=== PATIENT | male | born 1925 | race Caucasian/White ===

== ENCOUNTER 2016-09-15 14:11 | Observation (INO) | payer MEDICARE ==
[2016-09-15] MEDS ORDERED: NS 0.9% 1000 ML* 1,000 ML IV ONE (15:25)
--- NOTE | 2016-09-15 15:30 | RAD ---
HISTORY: Fall, syncope, hematoma COMPARISONS: MRI of the brain dated May 30, 2016 TECHNIQUE: Multiple contiguous axial CT scans were obtained of the head without intravenous contrast. FINDINGS: HEMORRHAGE/INFARCT: There is no hemorrhage or acute infarct. MASSES/SHIFT: There is no mass or shift. EXTRA-AXIAL SPACES: There are no extra-axial fluid collections. SULCI AND VENTRICLES: There is diffuse and proportional enlargement of the sulci and ventricles. CEREBRUM: There are no focal parenchymal abnormalities. BRAINSTEM: There are no focal parenchymal abnormalities. CEREBELLUM: There are no focal parenchymal abnormalities. VESSELS: The vessels are grossly normal. PARANASAL SINUSES: The paranasal sinuses are clear. ORBITS: The orbits are unremarkable. BONES AND SOFT TISSUE: No bone or soft tissue abnormalities are noted. OTHER: None IMPRESSION: NO ACUTE INTRACRANIAL PATHOLOGY. DIFFUSE INVOLUTIONAL CHANGE.
--- NOTE | 2016-09-15 15:34 | RAD ---
INDICATION: Fall resulting in hematoma to right forehead COMPARISON: Similar CT examination dated June 05, 2016 TECHNIQUE: Axial source images were acquired with coronal and sagittal reformatting. FINDINGS: In the sagittal plane there is nonspecific straightening and reversal of the normal cervical lordosis. There is grade 1 anterolisthesis of C2 over C3 but this is stable compared to the previous CT examination. Advanced degenerative changes include loss of intervertebral disc height, marginal osteophyte formation and vacuum disc phenomenon most severely involving C3-C7. There is sclerosis and subchondral lucencies at the articulating endplates and uncovertebral hypertrophy depicted best on the coronal plane images. There is lucency involving the dens which is stable compared to the previous CT examination. There is calcification of the ligaments securing the dens, also stable. There is no hyperdense material in the thecal canal to indicate acute hemorrhage. There is stable calcification involving the posterior spinous ligament overlying C4-C6. There is no acute abnormality of the soft tissues including the musculature. There is coarse atherosclerotic calcification of the right greater than left carotid arteries. The visualized lung bases are clear. IMPRESSION: ADVANCED DEGENERATIVE CHANGES OF THE CERVICAL SPINE WITHOUT EVIDENCE OF AN ACUTE FRACTURE OR DISLOCATION.
[2016-09-15 16:12] LABS: Hematocrit 38 % (42-52); Hemoglobin 12.8 g/dl (14.0-18.0); Mean Corpuscular HGB Conc 34 g/dl (31-36); Mean Corpuscular Hemoglobin 33 pg (27-31); Mean Corpuscular Volume 98 fL (80-94); Mean Platelet Volume 7 um3 (7.4-10.4); Red Blood Count 3.86 10^6/ul (4.0-5.4); Red Cell Distribution Width 14 % (10.5-15)
--- NOTE | 2016-09-15 16:17 | RAD ---
Indication: Syncope. Single frontal view of the chest performed at 1550 hours was reviewed. No prior study is available for comparison. No mediastinal shift is noted. Cardiomegaly is noted. Lung lucas are clear. IMPRESSION: NO ACTIVE CARDIOPULMONARY DISEASE IS NOTED. CARDIOMEGALY IS PRESENT.
[2016-09-15 16:29] LABS: Troponin I 0.01 ng/mL (<0.04)
[2016-09-15 16:37] LABS: Albumin 3.4 g/dL (3.2-5.2); BUN/Creatinine Ratio 22.4 (8-20); Calcium 8.6 mg/dL (8.6-10.3); EGFR African American 124.5 (>60); EGFR Non-African American 96.8 (>60); Globulin 2.6 g/dL (2-4); Magnesium 2.6 mg/dL (1.9-2.7); Total Bilirubin 0.3 mg/dL (0.2-1.0)
[2016-09-15 16:58] LABS: TSH (Thyroid Stimulating Horm) 1.04 mcIU/mL (0.34-5.60)
[2016-09-15] MEDS ORDERED: Ondansetron INJ* 2 MG/ML VIAL IV PRN (18:01)
[2016-09-15 18:27] LABS: Urine Bilirubin Negative (Negative); Urine Glucose Negative (Negative); Urine Nitrite Negative (Negative)
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
[2016-09-15] MEDS ORDERED: Iohexol 350* (CONTRAST) 500 ML MDV IV ONE (18:51)
[2016-09-15 19:23] LABS: Ammonia 35 mol/L (16-53)
[2016-09-15 19:27] LABS: B Type Natriuretic Peptide 120 pg/mL
--- NOTE | 2016-09-15 19:57 | RAD ---
INDICATION: Shortness of breath. Assess for pulmonary embolism. COMPARISON: September 15, 2016 chest radiograph TECHNIQUE: Multidetector CT images were obtained from the lung apices to the upper abdomen with 65 mL Omnipaque 350 IV contrast. Pulmonary angiogram protocol. Multiplanar reformation including with maximum intensity projection. REPORT: Negative for central endobronchial lesions. Trace bilateral dependent pleural effusions. Proportional RIGHT basilar atelectasis. Posterior shift of the LEFT major fissure and near complete atelectasis of the basilar segments of the LEFT lower lobe. Diffuse prominence of the interstitial markings with thickened peripheral intralobular septa. Negative for pneumothorax. Negative for thoracic lymphadenopathy. Cardiomegaly. Negative for pericardial effusion. Coronary artery calcifications. Negative for aneurysm of the thoracic aorta. While early phase of enhancement limits assessment there is no gross evidence for dissection of the thoracic aorta. No filling defects are identified from the main to the subsegmental pulmonary arteries to indicate presence of a pulmonary embolism. No suspicious abnormality at the limited visualized upper abdomen. Healed fractures of the RIGHT sixth, seventh, and eighth ribs noted posterior laterally. No acute thoracic fracture evident. Thoracic degenerative spondylosis. 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 IMPRESSION: 1. No evidence for pulmonary embolism. 2. The constellation of findings is most consistent with mild interstitial pulmonary edema. 3. Basilar atelectasis greater on the LEFT where there is posterior displacement of the major fissure and near complete atelectasis of the basal segments of the LEFT lower lobe.
[2016-09-15] MEDS: Acetaminophen TAB* 325 MG PO PRN (20:30)
[2016-09-15] MEDS ORDERED: Carbidopa/Levodop 25/100 MG TAB(*) PO SCH (21:00)
[2016-09-15] MEDS: Heparin VIAL(*) 5000 UNITS/ML VIAL (FIVE THOUSAND) SUBCUT SCH (21:17)
[2016-09-15] MEDS: ENTACAPONE 200 MG PO SCH (21:26)
--- NOTE | 2016-09-15 22:35 | HP ---
HISTORY AND PHYSICAL: * ADDENDUM: Mr. Corona is an 89-year-old male with a history of Parkinson who is undergoing physical therapy at [facility]. The patient had a syncopal episode yesterday when he slid off a chair. Today, he had a syncope from a standing up and walking position. He is mildly hyponatremic. We are still awaiting his EKG. His orthostatic blood pressure is still pending. For the time being, the patient is going to be placed on observation with further diagnostics as detailed in Malcom Silverman's H and P dictated on 09/15/16. [id number]/[facility] #: [id number] MTDD
--- NOTE | 2016-09-15 22:35 | HP ---
ATTENDING PROVIDER ADDENDUM NOW INCLUDED ON THIS REPORT HISTORY AND PHYSICAL: DATE OF ADMISSION: 09/15/16 PRIMARY CARE PROVIDER: Dr. Zendejas. ATTENDING PHYSICIAN: Viry Gracia MD * (report dictated by Malcom Silverman NP ) CHIEF COMPLAINT: Syncope. HISTORY OF PRESENT ILLNESS: Mr. Corona is an 89-year-old male patient who has a history of Parkinson, hyperlipidemia, prostate cancer, occipital neuralgia, and a history of lower back pain. He comes into the ER today stating that yesterday, he was sitting in his chair and he had an episode where he slid out of his chair and there was a question of syncope and a question of loss of pulse for unknown duration. The patient got back into his chair by himself. He was having no complaints of chest pain or shortness of breath. He was not sent to the hospital at that point, but today, he was up ambulating with his physical therapist. He had an episode again where he fainted and passed out, it is unknown duration. There was no prior chest pain or shortness of breath prior to or after this event. He does state that he woke up this morning feeling a little bit more short of breath than his baseline. Denies any recent change in medications with the exception he is now on Lyrica over the last 3 weeks for occipital neuralgia and he does state that he has not had any fevers, has not had any nausea or vomiting. His appetite has been down, but there has been no dysuria, frequency, and the concern was that he had passed out and this was twice in 2 days, so at this point, Cathy had referred him to the emergency room for evaluation. PAST MEDICAL HISTORY: 1. Parkinson. 2. Hyperlipidemia. 3. Prostate cancer. 4. Occipital neuralgia. 5. Low back pain. PAST SURGICAL HISTORY: He has had a prostatectomy. HOME MEDICATIONS: Include: 1. Senna 2 tabs at bedtime. 2. Requip 6 mg at 0600 and 1400. 3. Rivastigmine 1.5 mg daily. 4. Lyrica 50 mg p.o. b.i.d. 5. Prilosec 20 mg daily. 6. Milk of mag 30 cc p.o. daily. 7. Ibuprofen 600 mg p.o. b.i.d. with meals. 8. Comtan 200 mg p.o. 5 times a day. 9. Colace 100 mg daily. 10. Cymbalta 60 mg daily. 11. Clobetasol 0.5% topically daily as needed. 12. Refresh Tears 0.5% both eyes b.i.d. 13. Sinemet two and a half tabs p.o. at 0600, 0900, 1130, and 1600. 14. Sinemet 2 tabs at bedtime. 15. Debrox 5 drops both ears at bedtime. 16. Suppository 10 mg UT at bedtime as needed. 17. Aspirin 81 mg daily. 18. Tylenol 650 every 6 hours as needed. ALLERGIES TO MEDICATIONS: Include no known drug allergies. FAMILY HISTORY: His father had an CT. SOCIAL HISTORY: He does not smoke. He does not drink alcohol anymore. Lives at [facility]. Surrogate decision maker is his daughter, Susanne. REVIEW OF SYSTEMS: There is no documented fever. He denied having any significant weight change. There was no double vision. There is no ear discharge. No rhinorrhea, no sore throat, no thyroid enlargement. There was some dyspnea on exertion. There was no chest pain, orthopnea, or nocturnal dyspnea. There was no abdominal pain, no nausea, and no vomiting. No dysuria. No frequency. There was a loss of consciousness. No pruritus and no skin ulcerations. Review of 14 systems completed, all others negative. PHYSICAL EXAMINATION GENERAL: At this time, Mr. Corona is an 89-year-old male patient, who appears well- nourished and well-developed. He does not appear to be in any acute distress. VITAL SIGNS: Blood pressure 137/73 with a pulse 69, respirations 18, O2 sat 98% , temperature 98.1. HEENT: Head is atraumatic and normocephalic. Eyes: EOMs intact. Sclerae anicteric and not pale. Throat: Oral mucosa appears to be moist. No oropharyngeal erythema. NECK: Supple. LUNGS: Clear to auscultation bilaterally. No wheezes, rales, or rhonchi. HEART: Sounds S1, S2. Regular rate and rhythm. No murmurs, rubs, or gallops. ABDOMEN: Soft, flat, nontender. Bowel sounds present. EXTREMITIES: Pulses 2+ throughout. He is able to move all 4 extremities with 5 /5 strength. NEUROLOGIC: He is awake, he is alert. He does have some tremors to the lower extremities. He is oriented x3. He had no gross focal deficits. SKIN: Grossly intact. LABORATORY DATA: Today revealed a WBC of 9.0, RBC of 3.86, hemoglobin 12.9, hematocrit 38, platelet count of 290. The INR was 0.86. The sodium was 129, potassium is 5.0, chloride of 106, bicarb 25, BUN 17, creatinine of 0.76, glucose 133, lactic 1.1, calcium 8.6, total bili 0.3, mag 2.6, AST 17, ALT 5, alk phos 67, troponin 0.01, TSH 1.04. Urine is pending. He did have a chest x-ray obtained which on my review did not appreciate any acute infiltrates. Radiology read it as no active cardiopulmonary disease. He had a cervical spine CT, which showed advanced degenerative changes of the cervical spine without evidence of acute fracture or dislocation. He had a brain CT, which showed no acute intracranial pathology. He had an EKG, which showed normal sinus rhythm, rate of 66. He had a PAC with no ST elevations or T-wave inversions with the exception of II, III, and aVF, he has inversions, but there is no previous for comparison. Old medical records were reviewed. ASSESSMENT AND PLAN: Mr. Corona is an 89-year-old male patient coming into the ER today with complaints of syncopal episode. He will be admitted under observation status for: 1. Syncope. At this point, etiology is unclear, but he is complaining now of shortness of breath that started today. So, I do think it would be beneficial to go ahead and do a CT of the chest to rule out a PE that may be the culprit. Although, less likely he is not hypoxic and usually syncope-related pulmonary emboli are large pulmonary emboli and he is not requiring O2, but I think it is warranted a check as he does not ambulate much, he is mostly wheelchair bound because of the Parkinson. We will place him on telemetry. We will check orthostatics. I questioned if the Lyrica may have contributed because it can cause hypotension, is new medication in the last 2 weeks, so I am going to hold this for now. We may to consider a reduced dose or stopping it or an alternative agent for his occipital neuralgia. For the time being, again we will monitor him on telemetry and we will follow. 2. Parkinson. Continue meds as prescribed. 3. Hyperlipidemia. Follow with his primary. 4. History of prostate cancer. Follow with his primary. 5. Occipital neuralgia. Continue with pain management. 6. Low back pain. Continue with pain management. 7. DVT prophylaxis. Continue with his heparin subcu. 8. Code status. He is a DNR. 9. Fluids, electrolytes, and nutrition. He can have a regular diet. TIME SPENT: Time spent on the admission was 60 minutes, greater than half the time was spent [id number] with the patient obtaining my history and physical; the other half time was spent going over the plan of care with the patient and implementing plan of care. I did discuss the plan of care with my attending, Dr. Gracia, she is in agreement. MALCOM SILVERMAN NP ADDENDUM: Mr. Corona is an 89-year-old male with a history of Parkinson who is undergoing physical therapy at [facility]. The patient had a syncopal episode yesterday when he slid off a chair. Today, he had a syncope from a standing up and walking position. He is mildly hyponatremic. We are still awaiting his EKG. His orthostatic blood pressure is still pending. For the time being, the patient is going to be placed on observation with further diagnostics as detailed in Malcom Silverman's H and P dictated on 09/15/16. VIRY GRACIA MD CC: Dr. Zendejas * [id number]/[facility] #: [id number] #: [id number] [place]
[2016-09-15] MEDS: NS 0.9% 1000 ML* 1,000 ML IV SCH (22:59)
[2016-09-15 23:06] LABS: Urine Bilirubin Negative (Negative); Urine Glucose Negative (Negative); Urine Nitrite Negative (Negative)
[2016-09-16 05:07] LABS: Hematocrit 38 % (42-52); Hemoglobin 12.7 g/dl (14.0-18.0); Mean Corpuscular HGB Conc 34 g/dl (31-36); Mean Corpuscular Hemoglobin 33 pg (27-31); Mean Corpuscular Volume 98 fL (80-94); Mean Platelet Volume 7 um3 (7.4-10.4); Red Blood Count 3.86 10^6/ul (4.0-5.4); Red Cell Distribution Width 14 % (10.5-15)
[2016-09-16 05:20] LABS: BUN/Creatinine Ratio 17.6 (8-20); Calcium 8.5 mg/dL (8.6-10.3); EGFR African American 141.5 (>60); EGFR Non-African American 110.1 (>60); Potassium 3.6 mmol/L (3.5-5.0)
[2016-09-16] MEDS: Heparin VIAL(*) 5000 UNITS/ML VIAL (FIVE THOUSAND) SUBCUT SCH (05:26)
[2016-09-16] MEDS: ROPINIROLE HYDROCHLORIDE PO SCH ×2 (05:36→15:32)
[2016-09-16] MEDS: ENTACAPONE 200 MG PO SCH ×3 (05:37→15:32)
[2016-09-16] MEDS: Carbidopa/Levodop 25/100 MG TAB(*) PO SCH ×3 (05:46→11:56)
[2016-09-16] MEDS: Acetaminophen TAB* 325 MG PO PRN (05:49)
[2016-09-16] MEDS ORDERED: Docusate CAP* 100 MG PO SCH (09:00)
[2016-09-16] MEDS ORDERED: Omeprazole CAP* 20 MG PO SCH (09:00)
[2016-09-16] MEDS ORDERED: Aspirin EC Low Dose* 81 MG TAB.EC PO SCH (09:00)
[2016-09-16] MEDS ORDERED: DULoxetine DR CAP* 30 MG CAP.DR PO SCH (09:00)
[2016-09-16] MEDS ORDERED: CMCS:Rivastigmine CAP(NF) 1.5 MG CAP PO SCH (09:00)
[2016-09-16] MEDS: NS 0.9% 1000 ML* 1,000 ML IV SCH (11:55)
[2016-09-16 13:27] LABS: Troponin I 0.02 ng/mL (<0.04)
[2016-09-16 15:56] VITALS: BP 147/64
--- NOTE | 2016-09-17 00:57 | DS ---
DISCHARGE SUMMARY: DATE OF ADMISSION: 09/15/16 DATE OF DISCHARGE: 09/16/16 PRIMARY CARE PROVIDER: Dr. Zendejas. PRIMARY DIAGNOSIS: Syncope. SECONDARY DIAGNOSES: 1. Parkinsonism. 2. Hyperlipidemia. 3. Prostate cancer. 4. Occipital neuralgia. 5. Low back pain. MEDICATIONS ON DISCHARGE: Unchanged from admission except for discontinuation of Lyrica includes: 1. Senna 2 tabs at bedtime. 2. Requip 6 mg at 6 a.m. and 2 p.m. 3. Rivastigmine 1.5 mg daily. 4. Prilosec 20 mg daily. 5. Milk of magnesia 30 cc daily. 6. Ibuprofen 600 mg twice daily with meals as needed for pain. 7. Comtan 200 mg 5 times daily. 8. Colace 100 mg daily. 9. Cymbalta 60 mg daily. 10. Clobetasol 0.5% topically as needed. 11. Refresh Tears 0.5% both eyes twice daily. 12. Sinemet two and a half tabs at 6:00, 9:00, 11:30, and 04:00. 13. Sinemet 2 tabs at bedtime. 14. Debrox 5 drops both ear at bedtime. 15. Aspirin 81 mg daily. 16. Tylenol 650 every 6 hours as needed pain or fever. HISTORY OF PRESENT ILLNESS AND HOSPITAL COURSE: This is an 89-year-old man with a past medical history as outlined in the history of present illness on the day of admission including Parkinson disorder, recently started on Lyrica 3 weeks prior for occipital neuralgia, was in his usual state of health, had an episode where he reports sitting on chair at an angle and falling to the floor, was thought to have had an episode of syncope per his nursing although the veracity of this account could not be confirmed by the patient nor his healthcare proxy. The following day, after an episode of working with physical therapy, he was ambulating to another room with physical therapist when he started to feel dizzy and had another episode of syncope. Per reports, he has had episodes of orthostatic hypotension. In the emergency room, was tested and again was found to have orthostatic hypotension. He was given IV fluids during the course of his hospital stay, had serial troponins that remained negative and EKG without change. His Lyrica was discontinued on the day of discharge. The patient was without complaint, was ambulating with his walker without distress. There are no complications of this patient's hospital stay. At followup, please; 1. Monitor orthostatic hypotension off of Lyrica. 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 2. No other specific labs or vitals that need followup. Reasons to return to the hospital including, but not limited to worsening of symptoms, chest pain, shortness of breath, nausea, vomiting, lightheadedness, loss of consciousness, near loss of consciousness, diarrhea, fevers of any source, inability to obtain or tolerate medications discussed with the patient and his daughter. TIME SPENT: Greater than 45 minutes were spent on the discharge of this patient of which greater than half was spent [id number] with the patient. CC: Dr. Zendejas* [id number]/[facility] #: [id number] CELE[place]
== END 2016-09-16 19:00 ==
LOC: ED 14:11 → MEDTELE 17:59
PROVIDERS: ADMIT Internal Medicine; ATTEND Internal Medicine
DX: R55 Syncope and collapse (principal); G20 Parkinson's disease; E78.5 Hyperlipidemia, unspecified; M54.81 Occipital neuralgia; M54.5 Low back pain; J98.11 Atelectasis; M50.31 Other cervical disc degeneration, high cervical region; R94.31 Abnormal electrocardiogram [ECG] [EKG]; I44.4 Left anterior fascicular block; I49.1 Atrial premature depolarization; Z85.46 Personal history of malignant neoplasm of prostate; Z79.899 Other long term (current) drug therapy
CPT/HCPCS: 36415; 70450; 71010; 71275; 72125; 80048; 80053; 81003; 82140; 82550; 83605; 83735; 83880; 84443; 84484; 85025; 85610; 87086; 93005; 96360; 96361; 99283; A9270-GY; G0378; J1644; Q9967

== ENCOUNTER 2016-11-15 16:51 | Observation (INO) | payer MEDICARE ==
--- NOTE | 2016-11-15 17:50 | RAD ---
INDICATION: Neurologic change. Code mae. COMPARISON: CT brain September 15, 2016 TECHNIQUE: Noncontrast axial source images were acquired from the skull base to the vertex. FINDINGS: Ventricles/sulci: There is prominent cortical atrophy with compensatory dilatation of the CSF spaces. Brain parenchyma: There is no focal parenchymal finding, evidence of intracranial mass, or intracranial mass effect. Intracranial hemorrhage:None. Extra-axial spaces: There are no abnormal extra axial fluid collections or evidence of extra-axial mass. Calvarium: There is no calvarial fracture or other calvarial abnormality. Scalp: There is no evidence of scalp or extracalvarial soft tissue abnormality. Paranasal sinuses/mastoid: The paranasal sinuses and mastoid air cells are clear. Other: None. IMPRESSION: PROMINENT CORTICAL ATROPHY. NO ACUTE FINDINGS. Findings called to ED at 1744 hours
[2016-11-15 18:02] LABS: Hematocrit 40 % (42-52); Hemoglobin 13.2 g/dl (14.0-18.0); Mean Corpuscular HGB Conc 33 g/dl (31-36); Mean Corpuscular Hemoglobin 32 pg (27-31); Mean Corpuscular Volume 97 fL (80-94); Mean Platelet Volume 7 um3 (7.4-10.4); Red Blood Count 4.13 10^6/ul (4.0-5.4); Red Cell Distribution Width 13 % (10.5-15); White Blood Count 7.6 10^3/ul (3.5-10.8)
--- NOTE | 2016-11-15 18:04 | RAD ---
INDICATION: Altered mental status COMPARISON: Chest x-ray September 15, 2016 TECHNIQUE: An AP portable view obtained at 1741 hours is submitted. FINDINGS: Bones/Soft Tissues: There are no acute bony findings. Cardiomediastinal: The cardiomediastinal silhouette is unchanged. There is a left ventricular configuration. Lungs: There are no focal consolidative changes. There is increase in interstitial markings which appears chronic. A mild component of interstitial congestion cannot be excluded. Pleura: There are no pleural effusions. Other: None IMPRESSION: Diffuse increase in interstitial markings. No acute findings.
[2016-11-15 18:21] LABS: Albumin 3.4 g/dL (3.2-5.2); BUN/Creatinine Ratio 24.2 (8-20); Calcium 8.7 mg/dL (8.6-10.3); EGFR African American 146.5 (>60); EGFR Non-African American 113.9 (>60); Globulin 2.9 g/dL (2-4); HDL Cholesterol 58.1 mg/dL; Total Bilirubin 0.4 mg/dL (0.2-1.0); Total Protein 6.3 g/dL (6.4-8.9)
[2016-11-15 18:22] LABS: Troponin I 0.01 ng/mL (<0.04)
[2016-11-15] MEDS ORDERED: Ibuprofen TAB* 200 MG PO ONE (20:41)
[2016-11-15] MEDS ORDERED: Docusate CAP* 100 MG PO ONE (20:41)
[2016-11-15] MEDS ORDERED: AMPICILLIN 250 MG PO ONE (20:42)
[2016-11-15] MEDS ORDERED: Senna TAB PO ONE (20:43)
--- NOTE | 2016-11-15 20:48 | ED ---
Aretha Swartz Erika, scribed for Leo Hinojosa MD on 11/15/16 at 1753 . Altered Mental Status - HPI Summary HPI Summary: Patient is an 89-year-old male presenting to the ED with a CC of AMS. Per daughter, patient was given his usual medications around 14:00 or 14:30 today, and was at baseline. When he was rounded on by an aide at 15:00, pt was found unresponsive. Daughter reports that pt has had weakness on the right side worsening for the past 3-4 weeks. She also reports difficulty with depth perception and urinary retention. Hx Parkinson's disease. Pt has an MRI ordered which should be completed this week or next week. Pt did recently start taking an Abx for a UTI. LEVEL 5 CAVEAT - AMS. - History Of Current Complaint Chief Complaint: EDWeakness Stated Complaint: WEAKNESS, Time Seen by Provider: 11/15/16 17:17 Hx Obtained From: Family/Automatic Fancy Machine Operator Hx From Patient Unobtainable Due To: Altered Mental Status Onset/Duration: Still Present Timing: Constant Severity Currently: Moderate Character: Responsiveness Aggravating Factor(s): Unknown Alleviating Factor(s): Nothing - Allergies/Home Medications Allergies/Adverse Reactions: Allergies Allergy/AdvReac Type Severity Reaction Status Date / Time Poison Deborah Extract/Poison Allergy Rash And Verified 10/10/16 10:25 [place] Extra Itching Home Medications: Home Medications Carbidopa/Levodop 25/100 MG(*) [Sinemet 25/100 TAB(*)] 2 tab PO BEDTIME [History Confirmed 11/15/16] Carbidopa/Levodop 25/100 MG(*) [Sinemet 25/100 TAB(*)] 2.5 tab PO .FIVE TIMES A DAY 11/15/16 [History Confirmed 11/15/16] Fludrocortisone Acetate TAB* [Florinef TAB*] 0.1 mg PO DAILY 11/15/16 [History Confirmed 11/15/16] Ibuprofen TAB* [Advil TAB*] 400 mg PO Q4HR PRN 11/15/16 [History Confirmed 11/15] Nitrofurantoin Macrocrystals* [Macrodantin*] 50 mg PO DAILY 11/15/16 [History Confirmed 11/15/16] PMH/Surg Hx/FS Hx/Imm Hx Endocrine/Hematology History: Denies: Hx Diabetes, Hx Thyroid Disease Cardiovascular History: Reports: Hx Hypercholesterolemia Denies: Hx Hypertension, Hx Pacemaker/ICD Respiratory History: Denies: Hx Asthma, Hx Chronic Obstructive Pulmonary Disease (COPD) GI History: Denies: Hx Ulcer History: Reports: Other Problems/Disorders - prostate cancer Denies: Hx Dialysis, Hx Renal Disease Musculoskeletal History: Reports: Hx Arthritis - neck, Hx Back Problems, Other Musculoskeletal History - Parkinson's Sensory History: Reports: Hx Contacts or Glasses, Other Sensory Impairments - light sensativitu r/t eye pain right Denies: Hx Hearing Aid Opthamlomology History: Reports: Hx Contacts or Glasses, Other Sensory Impairments - light sensativitu r/t eye pain right Neurological History: Reports: Other Neuro Impairments/Disorders - Parkinson's Disease Psychiatric History: Reports: Hx Depression Denies: Hx Panic Disorder - Cancer History Cancer Type, Location and Year: , - Surgical History Surgery Procedure, Year, and Place: Hip replacement, 2004, [place] rt side. Prostatectomy, , [place] - Immunization History Date of Tetanus Vaccine: Unk Date of Influenza Vaccine: Fall 2014 Infectious Disease History: No Infectious Disease History: Reports: Hx Clostridium Difficile Denies: Hx Hepatitis, Hx Human Immunodeficiency Virus (HIV), History Other Infectious Disease, Traveled Outside the [place] in Last 30 Days - Family History Known Family History: Negative: Diabetes - Social History [facility]: [facility] Alcohol Use: Weekly Alcohol Amount: 2 oz Hx Substance Use: No Substance Use Type: Reports: None Hx Tobacco Use: No Smoking Status (MU): Never Smoked Tobacco Review of Systems - ROS Summary Review of Systems Summary: LEVEL 5 CAVEAT - AMS Eyes: Other - Depth perception difficulty Genitourinary: Other - urinary retention Neurological: Other - AMS Positive: Weakness - R sided All Other Systems Reviewed And Are Negative: No Physical Exam Triage Information Reviewed: Yes Vital Signs On Initial Exam: Initial Vitals Temp Pulse Resp BP Pulse Ox 98.6 F 66 16 212/83 97 11/15/16 16:56 11/15/16 16:56 11/15/16 16:56 11/15/16 16:56 11/15/16 16:56 Vital Signs Reviewed: Yes Completion Of Physical Exam Limited Due To: Altered Mental Status, Level 5 Appearance: Positive: Well-Appearing, No Pain Distress Skin: Positive: Warm, Skin Color Reflects Adequate Perfusion, Dry Head/Face: Positive: Normal Head/Face Inspection Eyes: Positive: PAM - 3 mm. Moves his eyes. Unable to open eyes himself ENT: Positive: Normal ENT inspection Neck: Positive: Supple, Nontender Respiratory/Lung Sounds: Positive: Clear to Auscultation, Breath Sounds Present Cardiovascular: Positive: RRR Abdomen Description: Positive: Nontender, Soft Bowel Sounds: Positive: Present Musculoskeletal: Positive: Normal, Strength/ROM Intact Neurological: Positive: Other - Twitches in both legs. Facial symmetry Diagnostics - Vital Signs Vital Signs Temp Pulse Resp BP Pulse Ox 11/15/16 16:56 98.6 F 66 16 212/83 97 - Laboratory Lab Results: Lab Results 11/15/16 11/15/16 11/15/16 Range/Units 17:45 17:45 17:45 WBC 7.6 (3.5-10.8) 10^3/ul RBC 4.13 (4.0-5.4) 10^6/ul Hgb 13.2 L (14.0-18.0) g/dl Hct 40 L (42-52) % MCV 97 H (80-94) fL MCH 32 H (27-31) pg MCHC 33 (31-36) g/dl RDW 13 (10.5-15) % Plt Count 381 (150-450) 10^3/ul MPV 7 L (7.4-10.4) um3 Neut % (Auto) 76.0 (38-83) % Lymph % (Auto) 11.8 L (25-47) % Leslie % (Auto) 10.1 H (1-9) % Eos % (Auto) 1.4 (0-6) % Baso % (Auto) 0.7 (0-2) % Absolute Neuts (auto) 5.8 (1.5-7.7) 10^3/ul Absolute Lymphs (auto) 0.9 L (1.0-4.8) 10^3/ul Absolute Monos (auto) 0.8 (0-0.8) 10^3/ul Absolute Eos (auto) 0.1 (0-0.6) 10^3/ul Absolute Basos (auto) 0.1 (0-0.2) 10^3/ul Absolute Nucleated RBC 0.01 10^3/ul Nucleated RBC % 0.1 INR (Anticoag Therapy) 0.92 (0.89-1.11) APTT 29.5 (26.0-36.3) seconds Sodium 131 L (133-145) mmol/L Potassium 4.0 (3.5-5.0) mmol/L Chloride 103 (101-111) mmol/L Carbon Dioxide 26 (22-32) mmol/L Anion Gap 2 (2-11) mmol/L BUN 16 (6-24) mg/dL Creatinine 0.66 L (0.67-1.17) mg/dL Est GFR ( Amer) 146.5 (>60) Est GFR (Non-Af Amer) 113.9 (>60) BUN/Creatinine Ratio 24.2 H (8-20) Glucose 104 H (70-100) mg/dL Lactic Acid (0.5-2.0) mmol/L Calcium 8.7 (8.6-10.3) mg/dL Total Bilirubin 0.40 (0.2-1.0) mg/dL AST 16 (13-39) U/L ALT 9 (7-52) U/L Alkaline Phosphatase 83 (34-104) U/L Troponin I 0.01 (<0.04) ng/mL Total Protein 6.3 L (6.4-8.9) g/dL Albumin 3.4 (3.2-5.2) g/dL Globulin 2.9 (2-4) g/dL Albumin/Globulin Ratio 1.2 (1-3) Triglycerides 106 mg/dL Cholesterol 184 mg/dL LDL Cholesterol 105 mg/dL HDL Cholesterol 58.1 mg/dL Blood Type Antibody Screen 11/15/16 11/15/16 Range/Units 17:45 17:45 WBC (3.5-10.8) 10^3/ul RBC (4.0-5.4) 10^6/ul Hgb (14.0-18.0) g/dl Hct (42-52) % MCV (80-94) fL MCH (27-31) pg MCHC (31-36) g/dl RDW (10.5-15) % Plt Count (150-450) 10^3/ul MPV (7.4-10.4) um3 Neut % (Auto) (38-83) % Lymph % (Auto) (25-47) % Leslie % (Auto) (1-9) % Eos % (Auto) (0-6) % Baso % (Auto) (0-2) % Absolute Neuts (auto) (1.5-7.7) 10^3/ul Absolute Lymphs (auto) (1.0-4.8) 10^3/ul Absolute Monos (auto) (0-0.8) 10^3/ul Absolute Eos (auto) (0-0.6) 10^3/ul Absolute Basos (auto) (0-0.2) 10^3/ul Absolute Nucleated RBC 10^3/ul Nucleated RBC % INR (Anticoag Therapy) (0.89-1.11) APTT (26.0-36.3) seconds Sodium (133-145) mmol/L Potassium (3.5-5.0) mmol/L Chloride (101-111) mmol/L Carbon Dioxide (22-32) mmol/L Anion Gap (2-11) mmol/L BUN (6-24) mg/dL Creatinine (0.67-1.17) mg/dL Est GFR ( Amer) (>60) Est GFR (Non-Af Amer) (>60) BUN/Creatinine Ratio (8-20) Glucose (70-100) mg/dL Lactic Acid 1.0 (0.5-2.0) mmol/L Calcium (8.6-10.3) mg/dL Total Bilirubin (0.2-1.0) mg/dL AST (13-39) U/L ALT (7-52) U/L Alkaline Phosphatase (34-104) U/L Troponin I (<0.04) ng/mL Total Protein (6.4-8.9) g/dL Albumin (3.2-5.2) g/dL Globulin (2-4) g/dL Albumin/Globulin Ratio (1-3) Triglycerides mg/dL Cholesterol mg/dL LDL Cholesterol mg/dL HDL Cholesterol mg/dL Blood Type A Positive Antibody Screen Negative Result Diagrams: 11/15/16 17:45 11/15/16 17:45 Lab Statement: Any lab studies that have been ordered have been reviewed, and results considered in the medical decision making process. - Radiology CXR Radiology Interpretation Completed By: Radiologist - IMPRESSION: Diffuse increase in interstitial markings. No acute findings. - CT Brain CT CT Interpretation Completed By: Radiologist - IMPRESSION: PROMINENT CORTICAL ATROPHY. NO ACUTE FINDINGS. Findings called to ED at 1744 hours - EKG 16:49 Cardiac Rate: NL - at 63 bpm EKG Rhythm: Sinus Rhythm Ectopy: PACs EKG Interpretation: Flipped T waves in V5, V6, III, aVF. LVH National Institutes Of Health - NIH Scale Level of Consciousness: Only Reflex Motor/Unresponsive Ask Patient the Month and His/Her Age: Neither Correct/Aphasic Ask Pt to Open/Close Eyes and Retail Wireless Associate/Release Non-Paretic Hand: Neither Correctly Best Gaze (Only Horizontal Eye Movement): Normal Best Language (Describe Picture, Name Items): Mute/Global Aphasia Dysarthria (Read Several Words): Unintelligible or Mute Re-Evaluation - Re-Evaluation First Eval Re-Evaluation Time: 19:36 Change: Improved Comment: Patient is now awake and alert. Dr. Gaspar in to see patient Altered Mental Statu Course/Dx - Course Assessment/Plan: DR GASPAR, NEUROLOGY, SAW PATIENT IN ED. PATIENT IMPROVED IN ED. ADMIT HOSPITALIST STABLE. - Diagnoses Discharge Diagnoses: Altered mental state During the Visit The Following Alert/Code Occurred: Code Valdez - Provider Notifications Discussed Care Of Patient With: Dr. Gaspar (neurology) at 17:29 - discussed pt' s history and condition. Dr. Parks (radiology) at 17:44 - notified of negative Brain CT. Dr. Gaspar at 19:30 - Dr. Gaspar is updated on status and is in to see pt. Dr. Gaspar at 20:01 - Dr. Gaspar does not believe that this is a stroke, and does not believe any further neurological work up is necessary. Dr. Castelan (hospitalist) at 20:27 - agrees to admit Discharge - Discharge Plan Condition: Stable Disposition: ADMITTED TO [facility] Referrals: Feliberto Zendejas MD [Primary Care Provider] - The documentation as recorded by the Aretha daniel Erika accurately reflects the service I personally performed and the decisions made by me, Leo Hinojosa MD.
[2016-11-15] MEDS ORDERED: Acetaminophen TAB* 325 MG PO PRN (21:54)
[2016-11-15] MEDS ORDERED: Entacapone (NF) 200 MG TAB PO SCH (22:00)
[2016-11-15] MEDS ORDERED: Ciprofloxacin TAB* 250 MG PO ONE (22:05)
[2016-11-15 22:40] LABS: Urine Bilirubin Negative (Negative); Urine Glucose Negative (Negative); Urine Nitrite Negative (Negative)
[2016-11-15] MEDS ORDERED: Senna TAB PO SCH (23:00)
[2016-11-15] MEDS ORDERED: Docusate CAP* 100 MG PO SCH (23:00)
[2016-11-15] MEDS ORDERED: Ciprofloxacin TAB* 250 MG PO SCH (23:00)
[2016-11-16] MEDS: Heparin VIAL(*) 5000 UNITS/ML VIAL (FIVE THOUSAND) SUBCUT SCH ×3 (00:27→13:02)
--- NOTE | 2016-11-16 00:37 | CONS ---
NEUROLOGY CONSULTATION: DATE OF CONSULT: 11/15/16 REFERRING PHYSICIAN: Dr. Hinojosa. PRIMARY CARE PROVIDER: Dr. Zendejas. LOCATION: He is in the emergency room, possibly to be admitted. CHIEF COMPLAINT: Unresponsiveness. 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 The history is from him, but also from his daughter. About 2-1/2 hours later, they tried to wake him up and they could not arouse him. She said that it was likely he was in a deep sleep. She says that they checked his blood pressure and his heart rate and they were fine. It was then that he was referred to the emergency room. In the emergency room, he was minimally responsive and sent for a CAT scan. When he came back and he was getting a chest x-ray, he started to be more responsive. Within about a half an hour, he was fully responsive. He has had episodes of syncope and in fact was hospitalized on 09/15/16, was felt to be orthostatic syncope. He has hypertension, but apparently orthostatic hypotension. There is no history of seizures or strokes, but he does have a progressive neurodegenerative condition diagnosed as Parkinson's disease. However, began with difficulty walking 5 years ago and he has been in a wheelchair now for at least a month and he was using a motorized wheelchair before that. He has had progressive decreased function of his right arm and leg , particularly in the last 3 weeks. Also his initial symptoms of difficulty ambulating was related to his right leg. He does not have a history of heart disease. He has not been on any new medications recently other than an antibiotic for urinary tract infection, which apparently has been a recurrent problem. PAST MEDICAL HISTORY: Notable for neurodegenerative parkinsonism, hyperlipidemia, prostate cancer, occipital pain treated with nerve blocks, chronic low back pain. He has had a prostatectomy. MEDICATIONS: Consist of: 1. Requip 6 mg at 0600 and 1400. 2. Rivastigmine 1.5 mg p.o. q. day. 3. Lyrica 50 mg p.o. b.i.d. 4. Prilosec 20 mg p.o. q. day. 5. Comtan 200 mg p.o. five times per day. 6. Colace 100 mg q. day. 7. Cymbalta 60 mg p.o. q. day. 8. Sinemet 25/100 two tablets every 3 hours from 0600 to 1400 and then 2 tabs at bedtime. 9. Aspirin 81 mg p.o. q. day. ALLERGIES: According to the computer records, he does not have any drug allergies. SOCIAL HISTORY: He lives at [facility]. He has two daughters who are with him in the room. There is no history of alcohol abuse. He does not smoke. PHYSICAL EXAM: He is an elderly gentleman lying quietly in the emergency room [facility]. His heart rate is generally regular on the monitor at about 70 beats per minute but with frequent PVCs and occasional pauses. Blood pressures are 118/70 and respiratory rate is about 16. Heart is in a regular rhythm without murmurs heard. Carotid pulses are present. There are no cervical bruits. Oral mucosa is moist and tongue is atraumatic. On neurologic exam, pupils react equally from about 3 to 2 mm. Funduscopic exam is poorly seen due to vitreous and lens opacities. Eye movements are full , however. Visual lucas are also full to confrontation. Facial musculature is notable for grade 2 hypomimia and is symmetric. Facial sensation is intact to light touch. Speech is soft and clear without dysarthria. He is a little hard of hearing. Motor exam reveals rigidity of the right arm and right leg and a little bit of the left leg. I do not detect a spastic catch. He has forward mobility of the right arm but can perform a weak and slow finger taps and some weak generation of strength proximally and distally. He has difficulty raising the right leg up but does offer some resistance. He seems to have good strength of the right arm and leg and fairly normal tone. There was no tremor or myoclonus noted. Finger taps are a little slow in the left hand. Reflexes are diffusely hypoactive. Plantar responses are extensor bilaterally. He is mentally very slow to respond. However, he provides reasonably good history but his daughter has to correct him about chronological details. Language is generally fluent. Attention and concentration are fair. DIAGNOSTIC STUDIES/LAB DATA: Reviewed includes a normal CBC other than a hemoglobin of 13. Chemistries are notable for a sodium of 131 and otherwise unremarkable chemistry profile. CT scan of the brain is reviewed and revealed pretty severe atrophy, but is otherwise unremarkable. MRI of the brain from 06/01/16 is reviewed and also revealed severe atrophy. 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 I am not sure what caused this episode of unresponsiveness, but if he had an arrhythmia in his sleep or was hypoxic, that might explain it. There has been no change in his medications, but he does get Requip at 2 o'clock, which can cause sleep attacks, but he has been on that for many months if not years according to his daughters. 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 He also has severe cervical spine disease, which could potentially contribute to his more recent motor decline, but it looks more like an extrapyramidal pattern particularly with asymmetry. Again, this is unrelated to his emergency room presentation. I discussed my impressions with Dr. Hinojoas. He will discuss with the hospitalist possibly admitting him for a telemetry monitoring to make sure he is not having arrhythmias in his sleep. Regarding his neurodegenerative parkinsonism, he could be seen in followup in the office at some point. I have discussed this with his daughters. [id number]/[facility] #: [id number] [place]LE[place]
--- NOTE | 2016-11-16 01:21 | HP ---
HOSPITAL MEDICINE HISTORY AND PHYSICAL: DATE OF ADMISSION: 11/15/16 PRIMARY CARE PHYSICIAN: Feliberto Zendejas MD ATTENDING PHYSICIAN: Robert Castelan MD *(dictation provided by Merle Webster NP) CHIEF COMPLAINT: Altered mental status. HISTORY OF PRESENT ILLNESS: Mr. Corona is an 89-year-old male with a past medical history history of Parkinson disease and prostate cancer, currently requiring b.i.d. straight catheterization for urinary retention, who presents to the hospital with an episode of altered mental status. Per the report, given from the patient's daughter who is at the bedside, Mr. Corona had been in his normal state of health. Today at about 1230 hours, he was very eager to take a nap. This was unusual for him, but he did not seem to be in any distress. The patient napped and then staff attempted to awaken him to give him medications, he was less responsive but there was not significant concern as he was appropriate. However, shortly thereafter, he was attempted to be awakened again and was unresponsive. It is unclear exactly how long the patient was unresponsive. The daughter at the bedside is not aware of how long that lasted. Regardless, by the time she saw him at 8 o'clock this evening, he was essentially back to his baseline, although the patient's daughter notes that he is a little more quite than usual. The patient has no recollection and when I asked why he is in the hospital, he stated it is because of his bladder. He denies any complaints at this time other than feeling that his bladder is full. In the emergency room, Mr. Corona has been shown to have essentially normal workup. A CT of the brain is negative. His labs are normal. I will note that his UA is pending. Per the review of the record from [facility], the patient had been on ampicillin and then switched over nitrofurantoin for urinary tract infection. When I asked the patient about this, he stated that he had been on antibiotics for feeling of fullness after urination. The daughter at the bedside is unaware of the exact details, though she did know he was on antibiotics. PAST MEDICAL HISTORY: 1. Parkinson disease. 2. Hypotension, on Florinef. 3. GERD. 4. Prostate cancer with current urinary retention, requiring b.i.d. catheterization. 5. Frequent falls. 6. Occipital neuralgia. MEDICATIONS: 1. Dulcolax suppository 10 mg p.o. q.p.m. p.r.n. 2. Refresh Tears 0.5% both eyes b.i.d. 3. Clobetasol 0.05% topically daily p.r.n. 4. Fludrocortisone 0.1 mg p.o. daily. 5. Advil 400 mg p.o. q.4 hours p.r.n. 6. Ibuprofen p.r.n. 7. Magnesium hydroxide p.r.n. 8. Nitrofurantoin 50 mg p.o. daily. 9. Tylenol p.r.n. 10. Aspirin 81 mg p.o. daily. 11. Carbidopa/levodopa 25/100 mg 2 tabs p.o. at bedtime and 2.5 tabs p.o. 5 times daily. 12. Cymbalta 30 mg p.o. daily. 13. Docusate 100 mg p.o. daily. 14. Entacapone 200 mg p.o. 5 times daily. 15. Omeprazole 20 mg p.o. q.p.m. 16. Ropinirole 6 mg p.o. at 6 o'clock and 1400 hours. 17. Senna with docusate 2 tabs p.o. bedtime. ALLERGIES: To POISON GERARDO and POISON [place]. FAMILY HISTORY: The patient reports both mother and father had history of heart failure. SOCIAL HISTORY: The patient is a nonsmoker. He has been a drinker. He is currently allowed to have 1.5 ounces of vodka q.p.m. at [facility]. There is no report of drug history. The patient states that his daughter, Susanne, is his health care proxy. REVIEW OF SYSTEMS: A 14-point review of systems was completed with Mr. Corona and all those not mentioned above were negative. PHYSICAL EXAMINATION GENERAL: Mr. Corona is sitting up in the bed. He is in no acute distress. VITAL SIGNS: Temperature 98.6, pulse rate 66, respiratory rate 16, O2 saturation 97% on room air, and blood pressure 167/86. LUNGS: Clear to auscultation bilaterally with no accessory muscle use and good aeration. HEART: S1, S2. No murmur, rub, or gallop and regular. ABDOMEN: Soft and nontender with bowel sounds positive x4. EXTREMITIES: No cyanosis or edema. SKIN: Intact. NEURO: He is quite, but he is oriented x3. He states that he is in the hospital and that Jimbo Virk is our President. He was not clear why he was in the hospital and stated that it was because of the bladder problem. He moves all extremities equally. There is no facial asymmetry or focal weakness. Extraocular movements are intact. DIAGNOSTIC STUDIES/LAB DATA: WBC 7.6, hemoglobin 13.2, hematocrit 40, and platelet count 380. INR 0.92. Sodium 131, potassium 4.0, chloride 103, serum bicarbonate 26, BUN 16, creatinine 0.66, and glucose 104. Troponin 0.01. CT brain shows following: Prominent cortical atrophy. No acute findings. Chest x-ray shows the following: Diffuse interstitial markings. No acute findings. EKG shows sinus rhythm with a heart rate in the 60s. No evidence of ischemia. The urine is pending. ASSESSMENT: Mr. Corona is an 89-year-old male with a past medical history of Parkinson disease and prostate cancer, requiring twice daily straight catheterization for urinary retention, who presents to the hospital with an self - limited episode of altered mental status. Our plans are for observation in the hospital for the followin. Altered mental status: I appreciate consultation from Dr. Reina who has seen him today. There is no evidence per his estimation that the patient had a transient ischemic attack. He suspects perhaps the patient had hypoxia or arrhythmia during sleep and recommends telemetry monitoring. We will provide telemetry monitoring. The patient will have q.2 hour neuro checks. I am suspicious that perhaps, he has a urinary tract infection given his history of urinary retention and recent antibiotics. Plan is for a urinalysis, but I will order a dose of ciprofloxacin pending the review of those results. That can be reviewed in the morning and continued as needed. I also wonder perhaps his medication dose related, although he has been receiving his medications routinely as documented on the [facility] paperwork. 2. Hypertension: The patient's blood pressure has been running as high as 200 in the emergency room. He is on fludrocortisone at home for what has been reported to be a worsening hypotension. I will continue the fludrocortisone for the a.m. and I am going to put a hold parameter for blood pressure greater than 120. I am not planning to order any antihypertensives for his high blood pressure at least at this point, given his history of hypertension, but that can be readdressed if he persists with high blood pressure. His current blood pressure is systolically in the 160s. 3. Parkinson's: Continue home medications. 4. DVT prophylaxis: Heparin subcu. 5. Disposition: To telemetry floor. 6. Code status: DNR. TIME SPENT: Approximately 60 minutes was spent in the admission of this patient , more than half of the time was spent with the patient at the bedside reviewing the events leading up to this hospitalization, performing the physical examination, and reviewing my plan of care. MERLE WEBSTER NP CC: Dr. Zendejas* [id number]/[facility] #: [id number] MTDD
[2016-11-16] MEDS: Carbidopa/Levodop 25/100 MG TAB(*) PO SCH ×4 (05:03→13:55)
[2016-11-16] MEDS: ROPINIROLE HYDROCHLORIDE PO SCH ×2 (05:04→13:55)
[2016-11-16] MEDS: ENTACAPONE 200 MG PO SCH ×4 (05:05→13:55)
[2016-11-16 07:44] VITALS: BP 117/64
[2016-11-16] MEDS ORDERED: DULoxetine DR CAP* 30 MG CAP.DR PO SCH (09:00)
[2016-11-16] MEDS ORDERED: Fludrocortisone Acetate TAB* 0.1 MG PO SCH ×2 (09:00)
[2016-11-16] MEDS ORDERED: Omeprazole CAP* 20 MG PO SCH (09:00)
[2016-11-16] MEDS ORDERED: Docusate CAP* 100 MG PO SCH (09:00)
[2016-11-16] MEDS ORDERED: Aspirin EC Low Dose* 81 MG TAB.EC PO SCH (09:00)
--- NOTE | 2016-11-16 10:00 | PN ---
Subjective Date of Service: 11/16/16 Interval History: Patient seen and examined at bedside. Denies fever, chills, shortness of breath , chest discomfort, N/V/D. Pt states that he has needed to be straight cathed at home for a few weeks. He has followed with Urology at [place] in the past. Pt is complaining of generalized weakness and right hip pain. Pt has full ROM of the right hip. Pt's daughter's state that his mental status has been changing over the last few weeks, but he appears to be at his baseline this morning. She is anxious to get him returned to [facility] today. Tele: Sinus arrhythmia, few PVC and a 3 run beat of V tach overnight. Family History: Unchanged from Admission Social History: Unchanged from Admission Past Medical History: Unchanged from Admission Objective Active Medications: Acetaminophen (Tylenol Tab*) 650 mg PO Q6H PRN Reason: FEVER/PAIN Aspirin (Aspirin Ec Low Dose*) 81 mg PO DAILY DELFINO Carbidopa/Levodopa (Sinemet 25/100 Tab(*)) 2 tab PO BEDTIME DELFINO Carbidopa/Levodopa (Sinemet 25/100 Tab(*)) 2.5 tab PO 0600,0900,1130,1400 DELFINO Carbidopa/Levodopa (Sinemet 25/100 Tab(*)) 2.5 tab PO 1630 DELFINO Docusate Sodium (Colace Cap*) 100 mg PO DAILY DELFINO Docusate Sodium (Colace Cap*) 100 mg PO BEDTIME DELFINO Duloxetine HCl (Cymbalta Cap*) 30 mg PO DAILY DELFINO Entacapone (Comtan(Nf)) 200 mg PO 0600,0900,1130,1400 DELFINO Entacapone (Comtan(Nf)) 200 mg PO 1630 DELFINO Fludrocortisone Acetate (Florinef Tab*) 0.1 mg PO DAILY DELFINO Heparin Sodium (Porcine) (Heparin Vial(*)) 5,000 units SUBCUT Q8HR DELFINO Pto Nf Med* ( Ropinirole Hydrochloride [ Requip Xl] 6 Mg) 6 mg PO 0600,1400 DELFINO Omeprazole (Prilosec Cap*) 20 mg PO QAM DELFINO Senna (Senokot Tab*) 2 tab PO BEDTIME DELFINO Vital Signs 11/15/16 11/15/16 11/16/16 23:24 23:36 00:58 Temperature 98.7 F 98.7 F 98.3 F Pulse Rate 64 64 61 Respiratory 16 16 18 Rate Blood Pressure 147/87 151/82 163/76 (mmHg) O2 Sat by Pulse 96 97 Oximetry 11/16/16 11/16/16 04:07 07:31 Temperature 98.1 F 98.2 F Pulse Rate 56 67 Respiratory 16 22 Rate Blood Pressure 133/52 117/64 (mmHg) O2 Sat by Pulse 98 94 Oximetry Oxygen Devices in Use Now: None Appearance: NAD, sitting up in bed Eyes: No Scleral Icterus, PERRLA Ears/Nose/Mouth/Throat: NL Teeth, Lips, Gums, Mucous Membranes Moist Neck: NL Appearance and Movements; NL JVP, Trachea Midline Respiratory: Symmetrical Chest Expansion and Respiratory Effort, Clear to Auscultation Cardiovascular: NL Sounds; No Murmurs; No JVD, RRR Abdominal: NL Sounds; No Tenderness; No Distention Extremities: No Edema Skin: No Rash or Ulcers Neurological: Alert and Oriented x 3 - , some mild confusion, NL Muscle Strength and Tone Lines/Tubes/Other Access: Clean, Dry and Intact Peripheral IV - site benign Nutrition: Taking PO's Result Diagrams: 11/15/16 17:45 11/15/16 17:45 Additional Lab and Data: Assess/Plan/Problems-Billing Assessment: Mr. Corona is an 89 yo male with PMH significant for Parkinson disease, prostate CA, requiring straight catheterization for urinary retention, who presented to the hospital after an episode of unresponsiveness. - Patient Problems (1) Altered mental status Code(s): R41.82 - ALTERED MENTAL STATUS, UNSPECIFIED SNOMED Code(s): 899835509 Comment: - No further episodes of unresponsiveness, Pt has mild confusion - No significant arrhythmias noted on Tele overnight - Plan to follow-up with Dr. Reina outpatient (2) HTN (hypertension) Code(s): I10 - ESSENTIAL (PRIMARY) HYPERTENSION SNOMED Code(s): 60342797 Comment: - SBP 110-160's (3) Parkinson disease Code(s): G20 - PARKINSON'S DISEASE SNOMED Code(s): 77112064 Comment: - Continue home medications (4) DVT prophylaxis Code(s): IHX9072 - SNOMED Code(s): 256534920 (5) DNR (do not resuscitate) Status and Disposition: OBV. Stable for discharge back to [facility].
[2016-11-16] MEDS ORDERED: Carbidopa/Levodop 25/100 MG TAB(*) PO SCH ×2 (16:30→21:00)
[2016-11-16] MEDS ORDERED: Entacapone (NF) 200 MG TAB PO SCH (16:30)
--- NOTE | 2016-11-17 01:52 | DS ---
DISCHARGE SUMMARY: DATE OF ADMISSION: 11/15/16 DATE OF DISCHARGE: 11/16/16 AGE: 89. ATTENDING PHYSICIAN: Dr. Ara Mohr *(dictated by Meseret Mancia NP). PRIMARY CARE PROVIDER: Dr. Feliberto Zendejas. PRIMARY DIAGNOSIS: Transient altered mental status. SECONDARY DIAGNOSES: 1. Hypertension. 2. Parkinson's disease. 3. History of hypotension, on Florinef. 4. Gastroesophageal reflux disease. 5. Prostate cancer with current urinary retention, requiring b.i.d. catheterization. 6. Occipital neuralgia. CONSULTATIONS WHILE IN THE HOSPITAL: Dr. Temo Reina with Neurology. STUDIES WHILE IN THE HOSPITAL: 1. Brain CT on 11/15/16, radiologist's impression: Prominent cortical atrophy. No acute findings. 2. Chest x-ray on 11/15/16, radiologist's impression: Diffuse increase in interstitial markings. No acute findings. DISCHARGE MEDICATIONS: Continued home medications: 1. Requip 6 mg oral daily at 0600 and 1400. 2. Aspirin 81 mg oral daily. 3. Cymbalta 30 mg oral daily. 4. Acetaminophen 650 mg oral every 6 hours as needed for fever or pain. 5. Clobetasol propionate 0.05% topical daily as needed for dry skin. 6. Dulcolax suppository 10 mg oral every evening as needed for constipation. 7. Milk of magnesia 30 mL oral daily as needed for constipation. 8. Senna-S 8.6/50 mg 2 tablets oral daily at bedtime. 9. Omeprazole 20 mg oral daily. 10. Colace 100 mg oral daily. 11. Ibuprofen 600 mg oral 3 times daily with meals. 12. Refresh Tears 0.5% one drop to both eyes twice daily. 13. Comtan 200 mg oral 5 times daily. 14. Ibuprofen 400 mg oral every 4 hours as needed for pain. 15. Florinef 0.1 mg oral daily. 16. Sinemet 25/100 mg 2 tablets oral daily at bedtime, Sinemet 25/100 mg 2.5 tablets oral 5 times daily. Discontinued home medications: Macrodantin. HISTORY OF PRESENT ILLNESS/HOSPITAL COURSE: Mr. Corona is an 89-year-old male with past medical history significant for Parkinson's disease and prostate cancer, currently requiring twice daily straight catheterization for urinary retention who presented to the hospital after an episode of unresponsiveness. It was reported that the patient was very eager to take a nap and that this was unusual for him. He did not appear to be in any distress. The patient napped and then when staff attempted to wake him for his medications, he appeared less responsive, but they were not concerned as he was appropriate. Shortly afterwards, the staff again attempted to wake the patient and he was unresponsive. It was unclear exactly how long the patient was unresponsive. When the patient's daughter saw him several hours later in the evening, the patient was back to his baseline, but felt that the patient was a little more quiet than his normal. The patient had no recollection of why he was in the hospital and stated that it was because of his bladder. The patient was brought to the emergency room for further evaluation of his symptoms. While in the emergency room, Mr. Corona had a workup that was essentially normal. He had a CTA of the brain that was negative. His labs were normal. He had a urinalysis that was negative. The patient had been on ampicillin and nitrofurantoin for urinary tract infection at [facility]. When the patient was asked about this, he stated it was on antibiotic for fullness after urination. The patient's daughter was unaware. The patient was seen in consultation by Dr. Reina with Neurology who felt that the patient's episode of unresponsiveness may have been caused by an arrhythmia during his sleep or hypoxia. There had been no recent changes in the patient's medications. He did receive Requip at around 2 p.m. which could cause sleep attacks, but the patient has been on this medication for many months. 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 Hospitalists were asked to evaluate the patient for admission to monitor him over night on telemetry to make sure that he is not having any arrhythmias during his sleep. It was felt that as far as the patient's neurodegenerative parkinsonism is that he could be followed up as an outpatient for this. While in the hospital, the patient remained alert and oriented and responsive and he did have mild confusion. The patient had initially had a urinary catheter placed in the emergency room. It was felt that this was not appropriately emptying his bladder. It was removed. The patient was bladder scanned and straight catheterized this morning with a 12-Armenian catheter. The patient's daughter felt that he was doing well and was eager to have him return to [facility] today. Dr. Reina felt that the patient was also ready for return to [facility]. The patient's vitals have been unremarkable. Mr. Corona is stable for discharge back to [facility] today. Vital signs are as follows: Temperature 98.2, heart rate 67, respiratory rate 22, O2 sat 94% on room air, blood pressure 117/64. DISCHARGE PLAN: Mr. Corona will be discharged back to [facility] today. Activity as tolerated. He should be on a regular diet. The patient was reporting weakness. He was seen by Physical Therapy, who felt that he had continued physical therapy needs. I recommend the patient be evaluated by Physical Therapy and continue treatment at [facility]. As far as the patient's corticobasal syndrome, it is recommended that the patient follow up with Dr. Reina as an outpatient. Dr. Reina's office will call [facility] to set up an outpatient appointment. The patient should be seen in followup by his primary care provider, Dr. Zendejas, in the next week. As far as the patient's urinary retention, he should continued to be straight catheterized at least twice daily. It is recommended that he follow up with his outpatient urologist regarding the urinary retention. It is to note that upon presentation to the emergency room, the patient was noted to be hypertensive. His blood pressures improved during his stay. I recommend monitoring his blood pressure. If he continues to be hypertensive, consider discontinuing his Florinef. This is a summarized report of a complex medical history and hospital stay. For further details, please see the entire medical record. TIME SPENT: Time for this discharge was 50 minutes, 25 minutes were spent face-to- face with the patient and daughter discussing discharge plans and instructions. CONDITION ON DISCHARGE: Stable. Reviewed by MATTHEW MANCIA 11/22/16 1400 CC: Dr. Zendejas; [facility]* [id number]/[facility] #: [id number] CELESTINO
== END 2016-11-16 14:25 ==
LOC: ED 16:51 → MEDTELE 21:47
PROVIDERS: ADMIT Hospitalist; ATTEND Hospitalist
DX: R41.82 Altered mental status, unspecified (principal); I10 Essential (primary) hypertension; G20 Parkinson's disease; K21.9 Gastro-esophageal reflux disease without esophagitis; M54.81 Occipital neuralgia; I44.4 Left anterior fascicular block; Z85.46 Personal history of malignant neoplasm of prostate; Z79.899 Other long term (current) drug therapy; Z79.82 Long term (current) use of aspirin
CPT/HCPCS: 36415; 70450; 71010; 80053; 80061; 81003; 83605; 84484; 85025; 85610; 85730; 86850; 86900; 86901; 93005; 99284; A9270-GY; G0378; G8978-GP-CL; G8979-GP-CK; G8980-GP-CL; J1644

== ENCOUNTER 2017-03-26 12:56 | Emergency (ER) | payer MEDICARE ==
[2017-03-26] MEDS ORDERED: Ciprofloxacin TAB* 500 MG PO ONE (15:03)
[2017-03-26 15:04] LABS: Hematocrit 42 % (42-52); Hemoglobin 13.6 g/dl (14.0-18.0); Mean Corpuscular HGB Conc 33 g/dl (31-36); Mean Corpuscular Hemoglobin 32 pg (27-31); Mean Corpuscular Volume 100 fL (80-94); Mean Platelet Volume 8 um3 (7.4-10.4); Red Blood Count 4.21 10^6/ul (4.0-5.4); Red Cell Distribution Width 15 % (10.5-15)
[2017-03-26 15:20] LABS: Albumin 3.2 g/dL (3.2-5.2); BUN/Creatinine Ratio 22.1 (8-20); Calcium 8.8 mg/dL (8.6-10.3); EGFR African American 122.3 (>60); EGFR Non-African American 95.1 (>60); Globulin 3.1 g/dL (2-4); Potassium 3.9 mmol/L (3.5-5.0); Total Bilirubin 0.5 mg/dL (0.2-1.0); Total Protein 6.3 g/dL (6.4-8.9)
[2017-03-26 15:23] LABS: Urine Bacteria Absent (Absent); Urine Bilirubin Negative (Negative); Urine Glucose Negative (Negative); Urine Nitrite Negative (Negative)
[2017-03-26 16:38] VITALS: BP 115/55
--- NOTE | 2017-03-30 09:12 | PN ---
Progress Note - Progress Note Date of Service: 03/26/17 Note: Spoke with Shelly Villagomez nurse manager of engineering about patient's urine culture results at senior care at 9:15am. She states the patient has had a catheter for the past couple of months due to problems with his urethra and always has positive cultures. However, was sent to the ER because they were unable to insert catheter while in senior care and was in a lot of pain. Was not symptomatic, without fevers, for a UTI. Patient's catheter was replaced in ED and due to urine culture and urinalysis patient was placed on Cipro. >100,000 of pseudomonas aeruginosa. However, this is a normal finding for patient's with catheters. Nursing staff stated patient was still not symptomatic and doing much better. No signs of worsening infection and still taking Cipro. Cipro was shown as intermediate on culture results however all other oral medications were resistant. Only susceptible medications were IV. However due to patient doing well, no change needed at this time. Also has a procedure today to change straight cath into suprapubic catheter by physician at senior care. Aware of worsening signs and symptoms of infection and to return if IV antibiotics that are fully susceptible are needed. No further change or action needed at this time.
--- NOTE | 2017-04-03 09:51 | ED ---
Eugenio Swartz Alok, scribed for Wilson Jimenez MD on 03/26/17 at 1434 . GI/ HPI - HPI Summary HPI Summary: 89M presents to the ED due to ureteral catheter issues. Pt has been using a catheter twice a day for few past few months but has been having issues due to caring and blockage in his urethra. Today his nurse was unable to apply his ureteral catheter. Pt last had his catheter in place last night at approximately 2300. Pt notes distended bladder with purulent drainage today. Pt notes same back pain. Pt denies fever, diaphoresis, or chills. Pt denies abd pain but is unsure due to h/o parkinson's. Pt denies hematuria Pt has an appointment for a suprapubic catheter 03/30/17. PMHx includes Parkinson's, occipital neuralgia, and h/o bladder infections. - History of Current Complaint Chief Complaint: EDUrogenitalProblems Time Seen by Provider: 03/26/17 13:49 Stated Complaint: ABD PAIN Hx Obtained From: Patient Onset/Duration: Started Hours Ago, Atraumatic, Still Present Timing: Constant Severity: Moderate Current Severity: Moderate Pain Intensity: 0 Associated Signs and Symptoms: Positive: Back Pain, Other: - Uretal catheter issues. distented bladder. Purulent drainage.. Negative: Diaphoresis, Fever, Hematuria, Chills Aggravating Factor(s): Nothing Alleviating Factor(s): Nothing - Additional Pertinent History Primary Care Physician: [id number] - Allergy/Home Medications Allergies/Adverse Reactions: Allergies Allergy/AdvReac Type Severity Reaction Status Date / Time Poison Deborah Extract/Poison Allergy Rash And Verified 10/10/16 10:25 Gilbert Extra Itching PMH/Surg Hx/FS Hx/Imm Hx Endocrine/Hematology History: Denies: Hx Diabetes, Hx Thyroid Disease Cardiovascular History: Reports: Hx Hypercholesterolemia Denies: Hx Hypertension, Hx Pacemaker/ICD Respiratory History: Denies: Hx Asthma, Hx Chronic Obstructive Pulmonary Disease (COPD) GI History: Denies: Hx Ulcer History: Reports: Other Problems/Disorders - prostate cancer Denies: Hx Dialysis, Hx Renal Disease Musculoskeletal History: Reports: Hx Arthritis - neck, Hx Back Problems, Other Musculoskeletal History - Parkinson's Sensory History: Reports: Hx Contacts or Glasses, Other Sensory Impairments - light sensativitu r/t eye pain right Denies: Hx Hearing Aid Opthamlomology History: Reports: Hx Contacts or Glasses, Other Sensory Impairments - light sensativitu r/t eye pain right Neurological History: Reports: Other Neuro Impairments/Disorders - Parkinson's Disease Psychiatric History: Reports: Hx Depression Denies: Hx Panic Disorder - Cancer History Cancer Type, Location and Year: , - Surgical History Surgery Procedure, Year, and Place: Hip replacement, 2004, [place] rt side. Prostatectomy, , [place] - Immunization History Date of Tetanus Vaccine: Unk Date of Influenza Vaccine: Fall 2014 Infectious Disease History: Yes Infectious Disease History: Reports: Hx Clostridium Difficile Denies: Hx Hepatitis, Hx Human Immunodeficiency Virus (HIV), History Other Infectious Disease, Traveled Outside the [place] in Last 30 Days - Family History Known Family History: Negative: Diabetes - Social History Occupation: Retired Lives: [facility] Alcohol Use: None Alcohol Amount: 1/day Hx Substance Use: No Substance Use Type: Reports: None Hx Tobacco Use: No Smoking Status (MU): Never Smoked Tobacco Review of Systems Negative: Fever, Chills, Skin Diaphoresis Negative: Erythema Negative: Sore Throat Negative: Chest Pain Negative: Shortness Of Breath Positive: Abdominal Pain - Unknown due to parkinson's. Negative: Vomiting, Nausea Negative: dysuria, hematuria Negative: Myalgia, Edema Negative: Rash Neurological: Other - Negative: Dizziness All Other Systems Reviewed And Are Negative: Yes Physical Exam - Summary Physical Exam Summary: Constitutional: Well-developed, Well-nourished, Alert. (-) Distressed Skin: Warm, Dry HENT: Normocephalic; Atraumatic Eyes: Conjunctiva normal Neck: Musculoskeletal ROM normal neck. (-) JVD, (-) Stridor, (-) Tracheal deviation Cardio: Rhythm regular, rate normal, Heart sounds normal; Intact distal pulses; The pedal pulses are 2+ and symmetric. Radial pulses are 2+ and symmetric. (-) Murmur Pulmonary/Chest wall: Effort normal. (-) Respiratory distress, (-) Wheezes, (-) Rales Abd: Soft, (-) Tenderness, (-) Distension, (-) Guarding, (-) Rebound Musculoskeletal: (-) Edema Lymph: (-) Cervical adenopathy Neuro: Alert, Oriented x3 Psych: Mood and affect Normal Triage Information Reviewed: Yes Vital Signs On Initial Exam: Initial Vitals Temp Pulse Resp BP Pulse Ox 98.7 F 72 18 108/61 94 03/26/17 13:08 03/26/17 13:08 03/26/17 13:08 03/26/17 13:08 03/26/17 13:08 Vital Signs Reviewed: Yes - [place] Coma Scale Coma Scale Total: 15 Diagnostics - Vital Signs Vital Signs Temp Pulse Resp BP Pulse Ox 03/26/17 13:52 94 03/26/17 13:08 98.7 F 72 18 108/61 94 - Laboratory Result Diagrams: 03/26/17 14:30 03/26/17 14:30 Lab Statement: Any lab studies that have been ordered have been reviewed, and results considered in the medical decision making process. Re-Evaluation - Re-Evaluation First Eval Re-Evaluation Time: 16:13 Change: Improved Comment: Urine flowing GIGU Course/Dx - Course Course Of Treatment: We believe elevated WBC due to instrumentation and not sepsis - Diagnoses Provider Diagnoses: UTI (urinary tract infection), Acute urinary retention - Physician Notifications Discussed Care Of Patient With: Fransisco Rodriguez - Recommends size 12 moldovan coude catheter Time Discussed With Above Provider: 15:11 - Can come in at 1700 if unsuccessful Discharge - Discharge Plan Condition: Stable Disposition: HOME Prescriptions: Ciprofloxacin TAB* [Cipro 500 MG TAB*] 500 mg PO BID #14 tab Patient Education Materials: Urinary Retention in Men (ED), Urinary Tract Infection in Men (ED) Referrals: Feliberto Zendejas MD [Primary Care Provider] - Additional Instructions: Please follow up with your urologist on Sunday for your suprapubic catheter The documentation as recorded by the Eugenio daniel Alok accurately reflects the service I personally performed and the decisions made by , Wilson Jimenez MD.
== END 2017-03-26 17:45 | disposition home or self-care (01) ==
LOC: ED 12:56
DX: N39.0 Urinary tract infection, site not specified (principal); R33.9 Retention of urine, unspecified; E78.00 Pure hypercholesterolemia, unspecified; G20 Parkinson's disease; F32.9 Major depressive disorder, single episode, unspecified; Z85.46 Personal history of malignant neoplasm of prostate; Z96.649 Presence of unspecified artificial hip joint; Z90.79 Acquired absence of other genital organ(s)
CPT/HCPCS: 36415; 51702; 80053; 81003; 81015; 83605; 85025; 85610; 85730; 87040; 87077; 87086; 87186; 99283; A9270-GY

== ENCOUNTER 2017-04-02 18:42 | Inpatient (IN) | payer MEDICARE ==
[2017-04-02] MEDS ORDERED: Albuterol/Ipratropium NEB.SOL* Albuterol 2.5 MG/Ipratropium 0.5 MG 3 ML INH ONE (19:17)
[2017-04-02 19:50] LABS: Hematocrit 35 % (42-52); Hemoglobin 11.6 g/dl (14.0-18.0); Mean Corpuscular HGB Conc 33 g/dl (31-36); Mean Corpuscular Hemoglobin 32 pg (27-31); Mean Corpuscular Volume 98 fL (80-94); Mean Platelet Volume 7 um3 (7.4-10.4); Red Blood Count 3.58 10^6/ul (4.0-5.4); Red Cell Distribution Width 15 % (10.5-15); White Blood Count 15.7 10^3/ul (3.5-10.8)
[2017-04-02 20:05] LABS: Calcium 8.4 mg/dL (8.6-10.3); EGFR African American 113.8 (>60); EGFR Non-African American 88.5 (>60); Globulin 3.4 g/dL (2-4); Potassium 3.9 mmol/L (3.5-5.0); Total Bilirubin 0.5 mg/dL (0.2-1.0); Total Protein 6.4 g/dL (6.4-8.9)
[2017-04-02 20:09] LABS: Troponin I 5.02 ng/mL (<0.04)
[2017-04-02] MEDS ORDERED: Iodixanol* (CONTRAST) 320 MG/ML 100 ML SDV IV ONE (20:38)
--- NOTE | 2017-04-02 20:38 | ED ---
Marla Swartz Edward, scribed for Natanael Mcnally MD on 04/02/17 at 1911 . Shortness of Breath - HPI Summary HPI Summary: Patient brought in by EMS for gradual onset SOB starting yesterday. SOB has been intermittent today. Associated sx: productive cough, wheezing and tightness in chest. Given a duoneb and 10mg IV decadron in the ED which has alleviated the SOB. Patient also c/o decreased output from his suprapubic catheter (put in 3 days ago) with some leaking earlier today. Per EMS, the patient c/o pain in the suprapubic region of the ABD. Denies fever. Lives at [place]. PMHx corticobasal syndrome. - History of Current Complaint Chief Complaint: EDShortnessOfBreath Hx Obtained From: Patient, EMS Onset/Duration: Gradual Onset, Lasting Days, Still Present Alleviating Factors: Bronchodilators - Duoneb Associated Signs & Symptoms: Cough (Productive), Wheezing - Allergy/Home Medications Allergies/Adverse Reactions: Allergies Allergy/AdvReac Type Severity Reaction Status Date / Time Poison Deborah Extract/Poison Allergy Rash And Verified 10/10/16 10:25 [place] Extra Itching Home Medications: Home Medications Nitrofurantoin Macrocrystals* [Macrodantin*] 50 mg PO DAILY 04/02/17 [History Confirmed 04/02/17] PMH/Surg Hx/FS Hx/Imm Hx Previously Healthy: No Endocrine/Hematology History: Denies: Hx Diabetes, Hx Thyroid Disease Cardiovascular History: Reports: Hx Hypercholesterolemia Denies: Hx Hypertension, Hx Pacemaker/ICD Respiratory History: Denies: Hx Asthma, Hx Chronic Obstructive Pulmonary Disease (COPD) GI History: Denies: Hx Ulcer History: Reports: Other Problems/Disorders - prostate cancer Denies: Hx Dialysis, Hx Renal Disease Musculoskeletal History: Reports: Hx Arthritis - neck, Hx Back Problems, Other Musculoskeletal History - Parkinson's Sensory History: Reports: Hx Contacts or Glasses, Other Sensory Impairments - light sensativitu r/t eye pain right Denies: Hx Hearing Aid Opthamlomology History: Reports: Hx Contacts or Glasses, Other Sensory Impairments - light sensativitu r/t eye pain right Neurological History: Reports: Other Neuro Impairments/Disorders - Parkinson's Disease Psychiatric History: Reports: Hx Depression Denies: Hx Panic Disorder - Cancer History Cancer Type, Location and Year: Prostate, - Surgical History Surgery Procedure, Year, and Place: Hip replacement, 2004, [place] rt side. Prostatectomy, , [place] - Immunization History Date of Tetanus Vaccine: Unk Date of Influenza Vaccine: Fall 2014 Infectious Disease History: No Infectious Disease History: Reports: Hx Clostridium Difficile Denies: Hx Hepatitis, Hx Human Immunodeficiency Virus (HIV), History Other Infectious Disease, Traveled Outside the [place] in Last 30 Days - Family History Known Family History: Negative: Diabetes - Social History Occupation: Retired Alcohol Use: None Alcohol Amount: 1/day Hx Substance Use: No Substance Use Type: Reports: None Hx Tobacco Use: No Smoking Status (MU): Never Smoked Tobacco Review of Systems Constitutional: Negative Negative: Fever Eyes: Negative ENT: Negative Positive: Chest Pain - tightness in chest Positive: Shortness Of Breath, Cough - Productive, Other - Wheezing Positive: Abdominal Pain Genitourinary: Negative Musculoskeletal: Negative Skin: Negative Neurological: Negative Psychological: Normal All Other Systems Reviewed And Are Negative: Yes Physical Exam Triage Information Reviewed: Yes Vital Signs On Initial Exam: Initial Vitals Temp Pulse Resp BP Pulse Ox 97.7 F 101 24 129/78 97 04/02/17 18:45 04/02/17 18:45 04/02/17 18:45 04/02/17 18:45 04/02/17 18:45 Vital Signs Reviewed: Yes Appearance: Positive: No Pain Distress, Ill-Appearing - moderate Skin: Positive: Warm Head/Face: Positive: Normal Head/Face Inspection Eyes: Positive: PAM ENT: Positive: Hearing grossly normal Neck: Positive: Supple Respiratory/Lung Sounds: Positive: Clear to Auscultation, Breath Sounds Present Cardiovascular: Positive: IRR, Tachycardia Abdomen Description: Positive: Nontender, Soft Bowel Sounds: Positive: Present Musculoskeletal: Positive: Strength/ROM Intact Neurological: Positive: Alert, Oriented to Person Place, Time Psychiatric: Positive: Affect/Mood Appropriate Diagnostics - Vital Signs Vital Signs Temp Pulse Resp BP Pulse Ox 04/02/17 18:45 97.7 F 101 24 129/78 97 - Laboratory Lab Results: Lab Results 04/02/17 04/02/17 04/02/17 Range/Units 19:42 19:42 19:42 WBC 15.7 H (3.5-10.8) 10^3/ul RBC 3.58 L (4.0-5.4) 10^6/ul Hgb 11.6 L (14.0-18.0) g/dl Hct 35 L (42-52) % MCV 98 H (80-94) fL MCH 32 H (27-31) pg MCHC 33 (31-36) g/dl RDW 15 (10.5-15) % Plt Count 363 (150-450) 10^3/ul MPV 7 L (7.4-10.4) um3 Neut % (Auto) 91.5 H (38-83) % Lymph % (Auto) 3.3 L (25-47) % Rains % (Auto) 5.0 (1-9) % Eos % (Auto) 0.1 (0-6) % Baso % (Auto) 0.1 (0-2) % Absolute Neuts (auto) 14.3 H (1.5-7.7) 10^3/ul Absolute Lymphs (auto) 0.5 L (1.0-4.8) 10^3/ul Absolute Monos (auto) 0.8 (0-0.8) 10^3/ul Absolute Eos (auto) 0 (0-0.6) 10^3/ul Absolute Basos (auto) 0 (0-0.2) 10^3/ul Absolute Nucleated RBC 0.01 10^3/ul Nucleated RBC % 0 D-Dimer, Quantitative 355 H (Less Than 230) ng/mL Sodium 131 L (133-145) mmol/L Potassium 3.9 (3.5-5.0) mmol/L Chloride 100 L (101-111) mmol/L Carbon Dioxide 24 (22-32) mmol/L Anion Gap 7 (2-11) mmol/L BUN 23 (6-24) mg/dL Creatinine 0.82 (0.67-1.17) mg/dL Est GFR ( Amer) 113.8 (>60) Est GFR (Non-Af Amer) 88.5 (>60) BUN/Creatinine Ratio 28.0 H (8-20) Glucose 148 H (70-100) mg/dL Lactic Acid (0.5-2.0) mmol/L Calcium 8.4 L (8.6-10.3) mg/dL Total Bilirubin 0.50 (0.2-1.0) mg/dL AST 34 (13-39) U/L ALT 5 L (7-52) U/L Alkaline Phosphatase 83 (34-104) U/L Troponin I 5.02 H* (<0.04) ng/mL B-Natriuretic Peptide ( - 100) pg/mL Total Protein 6.4 (6.4-8.9) g/dL Albumin 3.0 L (3.2-5.2) g/dL Globulin 3.4 (2-4) g/dL Albumin/Globulin Ratio 0.9 L (1-3) 04/02/17 04/02/17 Range/Units 19:42 19:42 WBC (3.5-10.8) 10^3/ul RBC (4.0-5.4) 10^6/ul Hgb (14.0-18.0) g/dl Hct (42-52) % MCV (80-94) fL MCH (27-31) pg MCHC (31-36) g/dl RDW (10.5-15) % Plt Count (150-450) 10^3/ul MPV (7.4-10.4) um3 Neut % (Auto) (38-83) % Lymph % (Auto) (25-47) % Rains % (Auto) (1-9) % Eos % (Auto) (0-6) % Baso % (Auto) (0-2) % Absolute Neuts (auto) (1.5-7.7) 10^3/ul Absolute Lymphs (auto) (1.0-4.8) 10^3/ul Absolute Monos (auto) (0-0.8) 10^3/ul Absolute Eos (auto) (0-0.6) 10^3/ul Absolute Basos (auto) (0-0.2) 10^3/ul Absolute Nucleated RBC 10^3/ul Nucleated RBC % D-Dimer, Quantitative (Less Than 230) ng/mL Sodium (133-145) mmol/L Potassium (3.5-5.0) mmol/L Chloride (101-111) mmol/L Carbon Dioxide (22-32) mmol/L Anion Gap (2-11) mmol/L BUN (6-24) mg/dL Creatinine (0.67-1.17) mg/dL Est GFR ( Amer) (>60) Est GFR (Non-Af Amer) (>60) BUN/Creatinine Ratio (8-20) Glucose (70-100) mg/dL Lactic Acid 1.1 (0.5-2.0) mmol/L Calcium (8.6-10.3) mg/dL Total Bilirubin (0.2-1.0) mg/dL AST (13-39) U/L ALT (7-52) U/L Alkaline Phosphatase (34-104) U/L Troponin I (<0.04) ng/mL B-Natriuretic Peptide 564 H ( - 100) pg/mL Total Protein (6.4-8.9) g/dL Albumin (3.2-5.2) g/dL Globulin (2-4) g/dL Albumin/Globulin Ratio (1-3) Result Diagrams: 04/02/17 19:42 04/02/17 19:42 Lab Statement: Any lab studies that have been ordered have been reviewed, and results considered in the medical decision making process. - Radiology CXR Xray Interpretation: Positive (See Comments) - The constellation of findings favors mild interstitial pulmonary edema with associated LEFT larger than RIGHT pleural effusions and near complete atelectasis of the LEFT lower lobe. Inflammatory infiltrate at the consolidated LEFT lower lobe not excluded. Radiology Interpretation Completed By: Radiologist - CT CHEST/THORAX CTA CT Interpretation: Positive (See Comments) - 1. No evidence for pulmonary embolism. 2. Probable interstitial pulmonary edema with associated pleural effusions. 3. Near complete LEFT lower lobe atelectasis increased over the previous CT. Inflammatory infiltrate at the consolidated LEFT lower lobe is not excluded. 4. Small pericardial effusion. 5. Nondisplaced transverse fracture through the T7 vertebral body extending to the anterior cortex and inferior endplate with secondary sclerosis indicating late subacute or chronic age is likely secondary to reduced range of motion resulting from multilevel ankylosis/ DISH. Negative for involvement of the posterior elements. The fracture is new compared with the September 15, [address] Interpretation Completed By: Radiologist - EKG 1 EKG Interpretation: 19:34 - AFIB Re-Evaluation - Re-Evaluation First Eval Comment: results d/w pt and family, case d/w hospitalist Course/Dx - Course Assessment/Plan: 89 y/o male brought in by EMS for gradual onset SOB starting yesterday. SOB has been intermittent today. Associated sx: productive cough, wheezing and tightness in chest. Given a duoneb and 10mg IV decadron in the ED which has alleviated the SOB. Patient also c/o decreased output from his suprapubic catheter (put in 3 days ago) with some leaking earlier today. Per EMS , the patient c/o pain in the suprapubic region of the ABD. Denies fever. Lives at [place]. PMHx corticobasal syndrome. EKG shows AFIB at 19:34. CXR shows The constellation of findings favors mild interstitial pulmonary edema with associated LEFT larger than RIGHT pleural effusions and near complete atelectasis of the LEFT lower lobe. Inflammatory infiltrate at the consolidated LEFT lower lobe not excluded. CTA CHEST/THORAX SHOWS 1. No evidence for pulmonary embolism. 2. Probable interstitial pulmonary edema with associated pleural effusions. 3. Near complete LEFT lower lobe atelectasis increased over the previous CT. Inflammatory infiltrate at the consolidated LEFT lower lobe is not excluded. 4. Small pericardial effusion. 5. Nondisplaced transverse fracture through the T7 vertebral body extending to the anterior cortex and inferior endplate with secondary sclerosis indicating late subacute or chronic age is likely secondary to reduced range of motion resulting from multilevel ankylosis/DISH. Negative for involvement of the posterior elements. The fracture is new compared with the September 15, [address] Hernandez, who agreed to admit to [facility] [place]. - Diagnoses Provider Diagnoses: ACS (acute coronary syndrome) - Physician Notifications Instructed by Provider To: Admit As Inpatient - Critical Care Time Critical Care Time: 30-74 min Discharge - Discharge Plan Condition: Fair Disposition: ADMITTED TO [facility] documentation as recorded by the Marla daniel Edward accurately reflects the service I personally performed and the decisions made by me, Natanael Mcnally MD.
--- NOTE | 2017-04-02 21:27 | RAD ---
Indication: Shortness of breath. Inspiratory and expiratory wheezes. Comparison: November 15, [address] chest of the same date. Technique: Sitting AP and lateral chest views. Report: Cardiomegaly. Mild prominence of the interstitial markings. LEFT larger than RIGHT small pleural effusions. Volume loss from cardiomegaly and pleural effusion results in near complete atelectasis of the LEFT lower lobe with coexisting pneumonia at the LEFT lower lobe not excluded. Prominent ill-defined central pulmonary vasculature. Negative for free air beneath the diaphragm. IMPRESSION: The constellation of findings favors mild interstitial pulmonary edema with associated LEFT larger than RIGHT pleural effusions and near complete atelectasis of the LEFT lower lobe. Inflammatory infiltrate at the consolidated LEFT lower lobe not excluded.
--- NOTE | 2017-04-02 21:35 | RAD ---
INDICATION: Shortness of breath. Elevated d-dimer and troponin. COMPARISON: Chest radiograph of the same date and September 15, 2016 CT. TECHNIQUE: Multidetector CT images were obtained from the lung apices to the upper abdomen with 69 mL Visipaque 320 IV contrast. Pulmonary angiogram protocol. Multiplanar reformation including with maximum intensity projection. REPORT: LEFT larger than RIGHT small pleural effusions. Cardiomegaly and pleural fluid results in near complete atelectasis of the LEFT lower lobe with pneumonia at the consolidated LEFT lower lobe not excluded. Mild prominence of the peripheral intralobular septa. Negative for pneumothorax. Cardiomegaly. Small pericardial effusion. Normal diameter thoracic aorta. Negative for thoracic lymphadenopathy. Motion artifact mildly limits the CT pulmonary angiogram. No compelling filling defects are identified from the main to the subsegmental pulmonary arteries to indicate presence of a pulmonary embolism. 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 Nondisplaced transverse fracture through the T7 vertebral body extending to the anterior cortex and inferior endplate with secondary sclerosis indicating late subacute or chronic age is likely secondary to reduced range of motion resulting from multilevel ankylosis/DISH. Negative for involvement of the posterior elements. The fracture is new compared with the September 15, 2016 exam. No suspicious focal thoracic osseous lesions evident. IMPRESSION: 1. No evidence for pulmonary embolism. 2. Probable interstitial pulmonary edema with associated pleural effusions. 3. Near complete LEFT lower lobe atelectasis increased over the previous CT. Inflammatory infiltrate at the consolidated LEFT lower lobe is not excluded. 4. Small pericardial effusion. 5. Nondisplaced transverse fracture through the T7 vertebral body extending to the anterior cortex and inferior endplate with secondary sclerosis indicating late subacute or chronic age is likely secondary to reduced range of motion resulting from multilevel ankylosis/DISH. Negative for involvement of the posterior elements. The fracture is new compared with the September 15, 2016 exam.
[2017-04-02] MEDS ORDERED: Furosemide IV* 10 MG/ML VIAL (40 MG) IV ONE (22:21)
[2017-04-02] MEDS ORDERED: KCL 20 MEQ/100 ML IVPREMIX* 20 MEQ/100 ML BAG IV ONE (22:26)
[2017-04-02] MEDS ORDERED: Heparin DRIP 25,000 UNITS(*) 25,000 UNITS/500 ML BAG IV SCH ×2 (22:30→23:03)
[2017-04-02] MEDS ORDERED: Carbidopa/Levodop 25/100 MG TAB(*) PO SCH ×2 (23:00→23:40)
[2017-04-02] MEDS ORDERED: Heparin VIAL(*) 5000 UNITS/ML VIAL (FIVE THOUSAND) IV SCH (23:00)
--- NOTE | 2017-04-03 03:51 | HP ---
CC: Dr. Feliberto Zendejas at [facility] * HISTORY AND PHYSICAL: DATE OF ADMISSION: 04/02/17 CHIEF COMPLAINT: Chest pain. 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 It was done last Sunday. He was doing well, but interestingly, he got a little bit more anesthesia during the procedure, which was a 1-day procedure, because of his Parkinson's. Yesterday, he said to the patient's daughter that his both shoulders started to hurt and he was wheezing. Also, interestingly, his output for his suprapubic catheter became low. Today he had more wheezing and then he complained of chest tightness. He has no other complaints. No palpitations, no shortness of breath. No nausea or vomiting. His blood pressure was also very high for him. The family did not think that things were quite right, so they brought him to the ER for evaluation. In the ER, the patient was found to be in rapid atrial fibrillation at the time and had an elevated troponin of 5. The Afib was new. PAST MEDICAL HISTORY: The patient has a past medical history significant for atonic bladder, Parkinson's disease, hypotension, GERD, prostate cancer, with urinary retention, frequent falls, occipital neuralgia. PAST SURGICAL HISTORY: Includes the suprapubic catheter placement, as noted. CURRENT MEDICATIONS: As follows: 1. Senna 2 tablets at bedtime. 2. Requip 6 mg twice daily. 3. Macrodantin 50 mg daily. 4. Ibuprofen 600 mg every 8 hours as needed. 5. Florinef 0.1 mg daily. 6. Docusate 100 mg daily. 7. Duloxetine 40 mg daily. 8. Cipro 500 mg twice daily. 9. Refresh tears 0.5% both eyes twice daily. 10. Sinemet 25/100, 2.5 tabs 5 times a day. 11. Sinemet 25/100, 2 tabs at bedtime. 12. Aspirin 81 mg daily. 13. Tylenol 650 mg every 6 hours as needed. ALLERGIES: He has an allergy to POISON GERARDO and POISON OAK. FAMILY HISTORY: Mother and father both had heart failure. SOCIAL HISTORY: No tobacco. He used to be a drinker, but now only drinks about 1.5 ounce of vodka in the evening at [facility]. No recreational drug use. His daughters, Susanne Corona, [phone], and Veronika Corona, [phone], are his healthcare proxies. REVIEW OF SYSTEMS: Unable to obtain from the patient directly as the patient is currently sleeping and difficult to arouse. PHYSICAL EXAMINATION GENERAL: Pleasant gentleman, lying in bed, in no acute distress. VITAL SIGNS: Temperature 97.7 degrees, heart rate 101 beats per minute, respiratory rate 24 breaths per minute, pulse oximetry 97%, blood pressure 129/ 78. HEENT: Normocephalic and atraumatic. Pupils are equal, round and reactive to light. CHEST: Clear to auscultation and percussion bilaterally. CARDIOVASCULAR: S1, S2 appreciated. ABDOMEN: Positive bowel sounds in all 4 quadrants. Soft, nontender, and nondistended. EXTREMITIES: No cyanosis, clubbing or edema. +2 peripheral pulses bilaterally. NEUROLOGIC: Alert and oriented x3 when awakened. Moves all extremities. SKIN: No rashes or abnormalities. LABORATORY DATA: White count is 15.7, hemoglobin 11.6, hematocrit 35, and platelets 363. Sodium 131, potassium 2.9, chloride 100, CO2 of 24, BUN 22, creatinine 0.82, glucose is 148. Troponin is 5.02. Lactic acid 1.1. BNP is 564. D-dimer is 355. Chest x-ray was interpreted by Radiology as a constellation of findings, mild interstitial pulmonary edema associated with left and right pleural effusions, and near complete atelectasis of the left lower lobe, inflammatory infiltrate with consolidation of left lower lobe is not excluded. EKG shows Afib with rapid ventricular response at 107 beats per minute, left axis deviation. No acute ST-T wave changes. CTA of the chest shows no evidence of pulmonary embolism, probable interstitial pulmonary edema with associated pleural effusion, near complete left lower lobe atelectasis, increased over the prior CT. Inflammatory infiltrate with consolidation of left lower lobe is not excluded, small pericardial effusion, nondisplaced transverse fracture of the T7 vertebral body extending into the anterior cortex, inferior to endplate, with secondary sclerosis indicating late subacute or chronic age, likely secondary to reduced range of motion from multilevel ankylosis/DISH. Negative for involvement of the elements. This posture is new compared to 09/15/16 exam. ASSESSMENT AND PLAN: 1. Rapid atrial fibrillation not due to a pulmonary embolism, but may be secondary to myocardial infarction with an elevated troponin. We will cycle his troponins. His heart rate is much less rapid now, it is less than 100, so we hold off on Cardizem drip. He will be on a heparin drip. Get transthoracic echocardiogram. May benefit from cardiology consult. 2. Questionable pneumonia. I will empirically start the patient on antibiotic coverage with his elevated white count, but that could also be from his recent procedure and could be just a leukemoid reaction. For now we will give him Zosyn and monitor. 3. New evidence of a thoracic fracture. We will place the patient on bed rest , consider neurosurgical consult in the a.m. 4. Hypotension, currently acceptable, monitor. Continue Florinef as I have put him on, also beta blockade. 5. Fluids, electrolytes, and nutrition: N.p.o., in case he needs cardioversion in the a.m. 6. The patient is a [id number], but can be intubated for trial. TIME SPENT: Over 85 minutes were spent on this H and P, more than 45 minutes of which was spent in direct [id number] contact with the patient in evaluation , physical exam, counseling, and coordination of care. [id number]/[facility] #: [id number] [place]
[2017-04-03] MEDS: Aspirin EC TAB* 325 MG PO SCH ×2 (05:47→08:37)
[2017-04-03] MEDS: Metoprolol Tartrate TAB* 25 MG PO SCH ×2 (05:48→08:38)
[2017-04-03] MEDS: Carbidopa/Levodop 25/100 MG TAB(*) PO SCH ×5 (06:10→22:13)
[2017-04-03 08:23] LABS: Hematocrit 35 % (42-52); Hemoglobin 11.5 g/dl (14.0-18.0); Mean Corpuscular HGB Conc 33 g/dl (31-36); Mean Corpuscular Hemoglobin 32 pg (27-31); Mean Corpuscular Volume 98 fL (80-94); Mean Platelet Volume 7 um3 (7.4-10.4); Red Blood Count 3.56 10^6/ul (4.0-5.4); Red Cell Distribution Width 15 % (10.5-15)
[2017-04-03] MEDS ORDERED: Acetaminophen TAB* 325 MG PO PRN (08:30)
[2017-04-03] MEDS: ROPINIROLE HYDROCHLORIDE PO SCH ×2 (08:30→20:46)
[2017-04-03] MEDS ORDERED: Acetaminophen TAB* 325 MG ONE (08:32)
--- NOTE | 2017-04-03 08:36 | ECHO ---
Patient: SUKI BARAHONA Rec#: [id number] : 1925 Date: 04/03/2017 Age: 89y Height: 177.8 cm / 70.0 in Weight: 68.95 kg / 152.0 lbs Sex: M BSA: 1.86 Room#: 442 Admit Date#: 04/02/2017 Type: Inpatient Referring: Alan Hernandez MD Reading: Naman Cabrera MD Cigar Maker: Ana Rosa HarveyRDCS,RDMS CC: Feliberto Zendejas MD Transthoracic Echocardiogram Indication: CHF, Afib BP: 105/70 HR: 85 Rhythm: NSR with PACs Findings History: Parkinsons, prostate cancer, T7 fracture Technical Comments: The study quality is good. Completed 819 Left Ventricle: The left ventricular chamber size is normal. Mild concentric left ventricular hypertrophy is observed. There are multiple regional wall motion abnormalities. Severe hypo to akinesis of the inferior wall with moderate anterior wall hypokinesis. There is moderately decreased left ventricular systolic function. The estimated ejection fraction is 25-30%. Abnormal left ventricular diastolic filling is observed, consistent with impaired relaxation. Left Atrium: The left atrium is mild to moderately dilated. Right Ventricle: The right ventricle wall thickness is mildly increased. The right ventricular cavity size is normal. The right ventricular global systolic function is moderately reduced. Right Atrium: The right atrium is moderately dilated. Aortic Valve: The aortic valve is trileaflet. The aortic valve leaflets are mildly thickened. There is mild aortic regurgitation. There is no evidence of aortic stenosis. Mitral Valve: Mild mitral annular calcification present. The mitral valve leaflets do not appear thickened. There is mild mitral regurgitation. There is no evidence of mitral stenosis. Tricuspid Valve: The tricuspid valve leaflets are normal. There is mild to moderate tricuspid regurgitation. No pulmonary hypertension is noted. Pulmonic Valve: The pulmonic valve appears normal. There is a trace pulmonic regurgitation. Pericardium: A trivial pericardial effusion is visualized. A left pleural effusion is present. Aorta: There is mild dilatation of the ascending aorta. There is no dilatation of the aortic arch. There is mild dilatation of the aortic root. Pulmonary Artery: The main pulmonary artery appears normal. Venous: The inferior vena cava is dilated. There is less than 50% respiratory change in the inferior vena cava dimension. Conclusions Mild concentric left ventricular hypertrophy is observed. There is moderately decreased left ventricular systolic function. The estimated ejection fraction is 25-30%. Abnormal left ventricular diastolic filling is observed, consistent with impaired relaxation. The left atrium is mild to moderately dilated. There is mild mitral regurgitation. There is mild aortic regurgitation. There is mild to moderate tricuspid regurgitation. There is a trace pulmonic regurgitation. There is mild dilatation of the ascending aorta. There is mild dilatation of the aortic root. No reports of prior studies offered for comparison Measurements Name Value Normal Range RVIDd (AP) 2D 3 cm (0.9 - 2.6) RVDdMajor (2D) 4.1 cm (2.2 - 4.4) RAd ISD 4CH 6.1 cm (3.4 - 4.9) RA (A4C)W 5.2 cm (2.9 - 4.6) IVSd (2D) 1.3 cm (0.6 - 1) LVPWd (2D) 1.1 cm (0.6 - 1) LVIDd (2D) 4.8 cm (3.6 - 5.4) LVIDs (2D) 3.8 cm - LV FS (2D) 20 % (25 - 45) Aortic Annulus 2.4 cm (1.4 - 2.6) Ao root diameter (2D) 3.9 cm (2.1 - 3.5) Ascending Ao 3.8 cm (2.1 - 3.4) Aortic arch 3.2 cm (1.8 - 3.4) LA dimension (AP) 2D 4.4 cm (2.3 - 3.8) LAd ISD 4CH 7.1 cm (2.9 - 5.3) LA ISD 4CH W 4.8 cm (2.5 - 4.5) Name Value Normal Range LA ESV SP 4CH (A/L) 78.3 ml - LA ESV SP 2CH (A/L) 60.83 ml - LA ESV BP (A/L) 81.01 ml - LA ESV BP (A/L) index 44 ml/m2 - LA ESV SP 4CH (MOD) 71.94 ml - LA ESV SP 2CH (MOD) 56.68 ml - Name Value Normal Range MV E-wave Vmax 0.5 m/sec - MV deceleration time 331 msec - MV A-wave Vmax 0.7 m/sec - MV E:A ratio 0.7 ratio - P. vein S-wave Vmax 0.6 m/sec - P. vein D-wave Vmax 0.3 m/sec - P. vein S:D Vmax ratio 1.6 ratio - P. vein A-wave duration 104 msec - LV septal e' Vmax 0.05 m/sec - LV lateral e' Vmax 0.06 m/sec - LV E:e' septal ratio 12.5 ratio - LV E:e' lateral ratio 8.3 ratio - Name Value Normal Range AV Vmax 1.3 m/sec - AV VTI 25.2 cm - AV peak gradient 7 mmHg - AV mean gradient 3.8 mmHg - LVOT Vmax 0.7 m/sec - LVOT VTI 14 cm - LVOT peak gradient 2 mmHg - LVOT mean gradient 0.9 mmHg - AR PHT 726.18 msec - AR peak gradient 69.53 mmHg - Name Value Normal Range TR Vmax 2.1 m/sec - TR peak gradient 18 mmHg - RAP 8 mmHg - RVSP 26 mmHg - IVC diameter 2.3 cm - Name Value Normal Range PV Vmax 0.5 m/sec - PV peak gradient 1 mmHg -
[2017-04-03] MEDS: Ciprofloxacin TAB* 500 MG PO SCH ×2 (08:37→20:44)
[2017-04-03] MEDS: DULoxetine DR CAP* 20 MG CAP.DR PO SCH (08:37)
[2017-04-03] MEDS: Fludrocortisone Acetate TAB* 0.1 MG PO SCH (08:38)
[2017-04-03 08:41] LABS: Calcium 8.6 mg/dL (8.6-10.3); EGFR African American 122.3 (>60); EGFR Non-African American 95.1 (>60); HDL Cholesterol 48.6 mg/dL; Potassium 4.4 mmol/L (3.5-5.0)
[2017-04-03 08:53] LABS: Troponin I 5.64 ng/mL (<0.04)
[2017-04-03] MEDS ORDERED: Artificial Tears* 15 ML BTL BOTH EYES SCH (09:00)
--- NOTE | 2017-04-03 10:19 | PN ---
Subjective Date of Service: 04/03/17 Interval History: Patient seen and examined at bedside. Pt states that he had a "sharp" sternal chest pain this AM, that has resolved. Per his family he has complained of trouble with his breathing and noted to have a wheeze that is new for him. Per family the wheezing resolved after a breathing treatment. Denies fever, chills, current chest discomfort, N/V/D. Pt states that he had his procedure at [facility]. Pt has a history of falls, but has not had a recent fall in the last few weeks. Tele: Sinus rhythm to Afib to Sinus rhythm, rate 70-80's. Family History: Unchanged from Admission Social History: Unchanged from Admission Past Medical History: Unchanged from Admission Objective Active Medications: Acetaminophen (Tylenol Tab*) 650 mg PO Q4H PRN Reason: FEVER/PAIN Aspirin (Ecotrin Ec Tab*) 325 mg PO DAILY DELFINO Atorvastatin Calcium (Lipitor*) 80 mg PO 1700 DELFINO Carbidopa/Levodopa (Sinemet 25/100 Tab(*)) 2.5 tab PO FIVE TIMES DAILY DELFINO Carbidopa/Levodopa (Sinemet 25/100 Tab(*)) 2 tab PO 2300 DELFINO Ciprofloxacin (Cipro Tab*) 500 mg PO BID DELFINO Duloxetine HCl (Cymbalta Cap*) 40 mg PO DAILY DELFINO Fludrocortisone Acetate (Florinef Tab*) 0.1 mg PO DAILY DELFINO Heparin Sodium (Porcine) (Heparin Vial(*)) 0 units IV .PER PROTOCOL DELFINO Heparin Sodium/Dextrose (Heparin Drip 25,000 Units(*)) 25,000 units in 500 mls @ 0 mls/hr IV .NO INITIAL BOLUS DELFINO; As Directed Reason: Protocol Metoprolol Tartrate (Lopressor Tab*) 25 mg PO Q8H DELFINO Non-Formulary Medication (Ropinirole Hydrochloride [Requip Xl]) 6 mg PO BID DELFINO Polyvinyl Alcohol (Polyvinyl Alcohol 1.4% Opth*) 1 drop BOTH EYES BID DELFINO Vital Signs 04/02/17 04/02/17 04/02/17 22:30 23:00 23:30 Temperature Pulse Rate 106 96 90 Respiratory 16 17 16 Rate Blood Pressure 98/62 102/64 112/72 (mmHg) O2 Sat by Pulse 97 97 97 Oximetry 04/02/17 04/03/17 04/03/17 23:36 00:00 00:30 Temperature 98.8 F Pulse Rate 87 87 Respiratory 18 19 18 Rate Blood Pressure 108/58 108/64 123/75 (mmHg) O2 Sat by Pulse 99 98 Oximetry 04/03/17 04/03/17 04/03/17 00:43 01:55 02:23 Temperature 98.3 F 98.8 F Pulse Rate 87 94 Respiratory 18 Rate Blood Pressure 108/58 108/58 (mmHg) O2 Sat by Pulse 99 97 Oximetry 04/03/17 04/03/17 04/03/17 03:20 03:30 03:31 Temperature 97.3 F 97.3 F Pulse Rate 89 89 Respiratory 19 15 24 Rate Blood Pressure 105/70 105/70 (mmHg) O2 Sat by Pulse 92 92 Oximetry 04/03/17 04/03/17 04/03/17 07:40 07:50 08:01 Temperature 97.8 F Pulse Rate 71 Respiratory 14 13 22 Rate Blood Pressure 119/68 (mmHg) O2 Sat by Pulse 97 Oximetry Oxygen Devices in Use Now: Nasal Cannula - 3L Appearance: NAD, sitting up in bed Ears/Nose/Mouth/Throat: Mucous Membranes Moist Respiratory: Symmetrical Chest Expansion and Respiratory Effort, Clear to Auscultation Cardiovascular: NL Sounds; No Murmurs; No JVD, RRR Abdominal: NL Sounds; No Tenderness; No Distention Extremities: No Edema Skin: No Rash or Ulcers Neurological: Alert and Oriented x 3, NL Muscle Strength and Tone Lines/Tubes/Other Access: Clean, Dry and Intact Peripheral IV - site benign, Clean, Dry and Intact Other Access - suprapublic catheter Nutrition: Taking PO's Result Diagrams: 04/03/17 08:12 04/03/17 08:12 Additional Lab and Data: Assess/Plan/Problems-Billing Assessment: Mr. Corona in an 89 yo male with PMH significant for Parkinson's disease, hypotension, GERD, prostate CA and urinary retention and is S/P recent suprapublic catheter placement who presented to the hospital for his suprapublic catheter leaking and was found to be in new onset afib with elevated troponin. - Patient Problems (1) New onset a-fib Code(s): I48.91 - UNSPECIFIED ATRIAL FIBRILLATION SNOMED Code(s): 53530207 Comment: - No evidence of PE on chest CTA - Converted to Sinus rhythm this AM - [id number] score 4 - Cardiology consult pending - Continue heparin gtt and metoprolol (2) Elevated troponin Code(s): R74.8 - ABNORMAL LEVELS OF OTHER SERUM ENZYMES SNOMED Code(s): 629780758 Comment: - Troponin 5.02, 4.19, 5.64 - Continue to trend troponin until peak - Carology consult pending - Continue ASA, metolprolol and heparin gtt (3) Diastolic CHF Code(s): I50.30 - UNSPECIFIED DIASTOLIC (CONGESTIVE) HEART FAILURE SNOMED Code (s): 662962399 Comment: - ? Acute - TTE shows abnormal diastolic filling, EF 25-30% - Cardiology consult pending (4) Fracture of thoracic spine Code(s): S22.009A - UNSP FRACTURE OF UNSP THORACIC VERTEBRA, INIT FOR CLOS FX SNOMED Code(s): 561619080 Comment: - Acute vs subacute - Neurosurgery consult, input appreciated - Will get a PT eval (5) UTI (urinary tract infection) Comment: - Afebrile and leukocytosis improving - Pt diagnosed with UTI 03/26, culture grew Pseudomonas Aeruginosa - Continue Cipro (6) Hypotension Comment: - SBP 100-120's - Continue Florinef (7) Parkinson disease Current Visit: No Status: Chronic Code(s): G20 - PARKINSON'S DISEASE SNOMED Code(s): 07499839 Comment: - Continue home medications (8) DVT prophylaxis Code(s): XFJ0854 - SNOMED Code(s): 364369915 Comment: - Heparin gtt (9) DNR (do not resuscitate) Status and Disposition: Inpatient. Discharge to home when medically stable.
--- NOTE | 2017-04-03 10:24 | CONSULT ---
Consult Consult: Neurosurgery Consult Date of consult: 04/03/17 Reason for consult: T7 fracture Referring provider: Meseret Bach NP HPI: This is an 89 year old male who presented to the [facility] ED with complaint of low urine output, chest tightness and difficulty breathing with recent history of suprapubic catheter placement at [facility]. nondisplaced transverse fracture of T7 vertebra was found on CT chest/abdomen/pelvis and neurosurgery was consulted for evaluation. The patient states that he frequently has back pain, worse with movement, but does not currently have back pain. He denies numbness or tingling of the thorax. His daughters state that he has had several falls this year although none in the past 2-3 months. He resides at [facility] and his daughter explains that they are now using lifts to transfer the patient which has been easier and less painful for him; he uses a wheelchair. He denies numbness, tingling and pain into the bilateral lower extremities. He has baseline weakness and decreased sensation of the right upper and lower extremities. Currently denies chest pain, difficulty breathing, nausea, dizziness and lightheadedness. Past medical history: 1. Parkinson's Disease 2. Atonic bladder 3. Hypotension 4. GERD 5. Prostate cancer 6. Urinary retention 7. Occipital neuralgia 8. History recent falls Past surgical history: 1. Suprapubic catheter placement Home medications: 1. Aspirin EC Low Dose* [Ecotrin EC Low Dose 81 MG*] 81 mg PO DAILY 06/03/15 [ History Confirmed 04/02/17] 2. Ropinirole Hydrochloride [Requip Xl] 6 mg PO BID 06/03/15 [History Confirmed 04/02/17] 3. DULoxetine DR CAP* [Cymbalta CAP*] 40 mg PO DAILY 08/29/16 [History Confirmed 04/02/17] 4. Acetaminophen TAB* [Tylenol TAB*] 650 mg PO Q6H PRN 09/15/16 [History Confirmed 04/03/17] 5. Carboxymethylcellulose Sodium [Refresh Tears] 0.5 % BOTH EYES BID 09/15/16 [ History Confirmed 04/02/17] 6. Docusate CAP* [Colace Cap*] 100 mg PO DAILY 09/15/16 [History Confirmed 04/02] 7. Ibuprofen TAB* [Motrin TAB* 600 MG] 600 mg PO Q8H PRN 09/15/16 [History Confirmed 04/02/17] 8. Sennosides-Docusate Sodium [Senna-S 8.6-50 mg] 2 tab PO BEDTIME 09/15/16 [ History Confirmed 04/02/17] 9. Carbidopa/Levodop 25/100 MG(*) [Sinemet 25/100 TAB(*)] 2 tab PO BEDTIME 11/15 [History Confirmed 04/02/17] 10. Carbidopa/Levodop 25/100 MG(*) [Sinemet 25/100 TAB(*)] 2.5 tab PO .FIVE TIMES A DAY 11/15/16 [History Confirmed 04/02/17] 11. Fludrocortisone Acetate TAB* [Florinef TAB*] 0.1 mg PO DAILY 11/15/16 [ History Confirmed 04/02/17] 12. Ciprofloxacin TAB* [Cipro 500 MG TAB*] 500 mg PO BID #14 tab 03/26/17 [Rx Confirmed 04/02/17] 13. Nitrofurantoin Macrocrystals* [Macrodantin*] 50 mg PO DAILY 04/02/17 [ History Confirmed 04/02/17] Allergies: 1. Poison oak 2. Poison jorge Social history: The patient resides at [facility]. He is a nonsmoker and consumes one drink nightly. His daughters, Ashish, are his healthcare proxies. ROS: Full ROS completed. Pertinent findings stated in HPI, all others negative. Physical exam: Vital Signs: Temp Pulse Resp BP Pulse Ox 97.8 F 71 18 119/68 97 04/03/17 08:01 04/03/17 08:01 04/03/17 08:30 04/03/17 08:01 04/03/17 08:01 General: Alert and laying comfortably in bed. No distress. HEENT: Head is normocephalic and atraumatic. PERRL, EOMI, sclerae anicteric. Gross hearing intact. Slightly dry mucus membranes. Neck: Supple, symmetric, no adenopathy. Nontender to palpation. CV: Pedal pulses palpable. Radial pulses 2+ and equal. Deep, stabbing chest pain with gently placing stethoscope on sternum approximately 2-3 inches inferior to sternal notch; no radiation of pain and no pain with deep inspiration. Lungs: Breathing is nonlabored. Lungs are clear. Abdomen: Normoactive bowel sounds. Soft, nontender and nondistended. Neuro: CN II-XII intact. Speech is soft but clear and coherent. Upper and lower extremities strength 5/5 on the left, 4+/5 on the right. Sensation slightly diminished on the left. Extremities: Full ROM Imagin. CT chest/abdomen/pelvis on 04/02/17 shows nondisplaced transverse T7 fracture. Assessment: This is an 89 year old male with multiple medical conditions and history of several falls although none in the past 2-3 months, who presented to the [facility] ED with low urine output, chest pain and difficulty breathing. T7 fracture was found on CT. Fracture is not likely acute and the patient seems to be asymptomatic from it. Plan: 1. No indication for surgical repair of the fracture. 2. No activity restrictions in regards to fracture. 3. Discussed with the daughters that if symptoms change or new symptoms arise, he can follow up in office.
[2017-04-03] MEDS: Artificial Tears* 15 ML BTL BOTH EYES PRN (10:28)
[2017-04-03] MEDS: Lisinopril TAB* 5 MG PO SCH (14:07)
[2017-04-03] MEDS: Furosemide TAB* 20 MG PO SCH (14:07)
[2017-04-03] MEDS: Amiodarone TAB* 200 MG PO SCH (14:07)
[2017-04-03] MEDS: Atorvastatin* 80 MG TAB PO SCH (17:26)
[2017-04-03] MEDS: Carvedilol TAB* 3.125 MG PO SCH (20:43)
[2017-04-03] MEDS: Apixaban* 2.5 MG TAB PO SCH (20:43)
--- NOTE | 2017-04-03 21:31 | CONS ---
CC: Feliberto Zendejas MD, [facility] * CARDIOLOGY CONSULTATION: DATE OF CONSULT: 04/03/17 INDICATION FOR CONSULTATION: Shortness of breath, abnormal troponin, cardiomyopathy. HISTORY OF PRESENT ILLNESS: The patient is an 89-year-old gentleman with a history of prostate cancer, Parkinson disease, who is admitted to the hospital because of shortness of breath. The patient underwent a procedure at [facility] last Sunday for the placement of a suprapubic catheter. The patient had significant sedation for the procedure because of his restless leg syndrome. The patient returned to home that evening on last Sunday. The patient's family state that he was doing well on Sunday; however, on Sunday, he started having some shortness of breath and some bilateral arm discomfort. On the morning of the , he continued to have shortness of breath and was brought to the emergency room. In the emergency room, he was found to be in atrial fibrillation, which is apparently a new diagnosis for him. He had elevated troponins at peak level of 5.2. In the hospital here, he has undergone an echocardiogram, which showed severe LV dysfunction, ejection fraction of 25% to 30% with no significant valvular abnormalities. In speaking with the patient today, he has no specific complaints. The patient denied any shortness of breath. He denied any angina. He denied any lower extremity edema. PAST MEDICAL HISTORY: Significant for: 1. Parkinson disease. 2. Atonic bladder. 3. Hypotension. 4. Gastroesophageal reflux disease. 5. Prostate cancer. OUTPATIENT MEDICATIONS: 1. Senna 2 tablets b.i.d. 2. Requip 6 mg twice a day. 3. Macrodantin 50 mg a day. 4. Ibuprofen as needed. 5. Florinef 0.1 mg daily. 6. Duloxetine 20 mg a day. 7. Cipro 500 mg b.i.d. 8. Sinemet as directed. 9. Aspirin 81 mg a day. ALLERGIES: No known drug allergies. He does have environmental allergies. FAMILY HISTORY: No significant coronary artery disease. 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 He occasionally has 1 to 2 drinks of vodka at night. Denies tobacco use. REVIEW OF SYSTEMS: Per his intake sheet. PHYSICAL EXAMINATION: Height is 5 feet 10 inches, weight is 148 pounds. Heart rate is 70, temperature 97.1, blood pressure 105/67, respiratory rate is 20, oxygen saturation 96% on room air. Sclerae anicteric. Oropharynx is pink without erythema. Carotids are 2+ without bruits. JVD is slightly elevated. Cardiac Exam: S1, S2 without any murmurs, rubs, or gallops. He has a regular rhythm. PMI is normal. Lungs are clear to auscultation bilaterally. No dullness to percussion. Abdomen is soft, nontender, nondistended with normoactive bowel sounds. He does have a suprapubic catheter. Extremities show no edema. He has 2+ pulses throughout. The patient is awake, alert, and oriented. DIAGNOSTIC STUDIES/LAB DATA: White count 13, hemoglobin 11, hematocrit 35, platelet count 377,000. Chemistries within normal limits. BUN 20, creatinine 0.77. Troponin levels as described above. Total cholesterol 126, LDL cholesterol 66. AST and ALT are within normal limits. EKG this morning demonstrated atrial fibrillation. EKG at 11:51 demonstrates normal sinus rhythm, nonspecific intraventricular conduction delay. IMPRESSION: This is an 89-year-old gentleman who was brought to the hospital because of shortness of breath and bilateral arm pain. He has elevated troponin levels. His echocardiogram shows severe LV dysfunction with an ejection fraction of 25% . He has global hypokinesis and no significant valvular abnormalities. The issues for this patient are his atrial fibrillation, his anticoagulation for his atrial fibrillation, his heart failure and treatment for his heart failure. I spent approximately 40 minutes with the family including his children regarding options for care. Ultimately, it was decided the patient will just stay with maximum medical therapy. I have recommended the patient to be started on amiodarone for maintenance of normal sinus rhythm. The patient will be started on Eliquis for prevention of thromboembolic events because of his paroxysmal atrial fibrillation. The patient will be started on beta blockers and JUAN JOSE inhibitors for his heart failure and Lasix for his heart failure. I did talk to the patient and family about cardiac catheterization. They do not want to proceed with cardiac catheterization at this time. I did talk to the patient about a LifeVest. The patient has a DNR ordered here in the hospital. He is going to think about whether a LifeVest is going to be appropriate for him. The patient will be seen in followup as an outpatient. [id number]/[facility] #: [id number] [facility]
[2017-04-04 05:15] LABS: Hematocrit 34 % (42-52); Hemoglobin 11.1 g/dl (14.0-18.0); Mean Corpuscular HGB Conc 33 g/dl (31-36); Mean Corpuscular Hemoglobin 33 pg (27-31); Mean Corpuscular Volume 99 fL (80-94); Mean Platelet Volume 7 um3 (7.4-10.4); Red Cell Distribution Width 14 % (10.5-15); White Blood Count 12.8 10^3/ul (3.5-10.8)
[2017-04-04 05:32] LABS: BUN/Creatinine Ratio 32.4 (8-20); Calcium 8.2 mg/dL (8.6-10.3); EGFR African American 134.3 (>60); EGFR Non-African American 104.5 (>60); Potassium 3.7 mmol/L (3.5-5.0)
[2017-04-04] MEDS: Carbidopa/Levodop 25/100 MG TAB(*) PO SCH ×6 (05:32→20:17)
[2017-04-04] MEDS: Artificial Tears* 15 ML BTL BOTH EYES PRN (08:24)
[2017-04-04] MEDS: Lisinopril TAB* 5 MG PO SCH (08:26)
[2017-04-04] MEDS: Carvedilol TAB* 3.125 MG PO SCH ×2 (08:27→20:17)
[2017-04-04] MEDS: Aspirin EC TAB* 325 MG PO SCH (08:27)
[2017-04-04] MEDS: Fludrocortisone Acetate TAB* 0.1 MG PO SCH (08:27)
[2017-04-04] MEDS: Amiodarone TAB* 200 MG PO SCH (08:27)
[2017-04-04] MEDS: Furosemide TAB* 20 MG PO SCH (08:27)
[2017-04-04] MEDS: DULoxetine DR CAP* 20 MG CAP.DR PO SCH (08:28)
[2017-04-04] MEDS: Apixaban* 2.5 MG TAB PO SCH ×2 (08:28→20:17)
[2017-04-04] MEDS: Ciprofloxacin TAB* 500 MG PO SCH ×2 (08:28→20:17)
[2017-04-04] MEDS: ROPINIROLE HYDROCHLORIDE PO SCH (08:29)
--- NOTE | 2017-04-04 14:23 | PN ---
Subjective Date of Service: 04/04/17 - CC: SOB Interval History: Pt seen with his daugter. Breathing has improved. No chest pain. Per daughter his voice is better. Medications Active Medications: Acetaminophen (Tylenol Tab*) 650 mg PO Q4H PRN PRN Reason: FEVER/PAIN Last Admin: 04/03/17 08:37 Dose: 650 mg Amiodarone HCl (Cordarone Tab*) 200 mg PO DAILY [facility] Last Admin: 04/04/17 08:27 Dose: 200 mg Apixaban (Eliquis) 2.5 mg PO BID [facility] Last Admin: 04/04/17 08:28 Dose: 2.5 mg Aspirin (Ecotrin Ec Tab*) 325 mg PO DAILY [facility] Last Admin: 04/04/17 08:27 Dose: 325 mg Atorvastatin Calcium (Lipitor*) 80 mg PO 1700 [facility] Last Admin: 04/03/17 17:26 Dose: 80 mg Carbidopa/Levodopa (Sinemet 25/100 Tab(*)) 2 tab PO BEDTIME [facility] Carbidopa/Levodopa (Sinemet 25/100 Tab(*)) 2.5 tab PO 0600,0900,1130 [facility] Last Admin: 04/04/17 11:16 Dose: 2.5 tab Carbidopa/Levodopa (Sinemet 25/100 Tab(*)) 2.5 tab PO 1400,1630 [facility] Last Admin: 04/04/17 13:53 Dose: 2.5 tab Carvedilol (Coreg Tab*) 3.125 mg PO BID [facility] Last Admin: 04/04/17 08:27 Dose: 3.125 mg Ciprofloxacin (Cipro Tab*) 500 mg PO BID [facility] Last Admin: 04/04/17 08:28 Dose: 500 mg Duloxetine HCl (Cymbalta Cap*) 40 mg PO DAILY [facility] Last Admin: 04/04/17 08:28 Dose: 40 mg Fludrocortisone Acetate (Florinef Tab*) 0.1 mg PO DAILY [facility] Last Admin: 04/04/17 08:27 Dose: 0.1 mg Furosemide (Lasix Tab*) 20 mg PO DAILY [facility] Last Admin: 04/04/17 08:27 Dose: 20 mg Lisinopril (Prinivil Tab*) 5 mg PO DAILY [facility] Last Admin: 04/04/17 08:26 Dose: 5 mg Non-Formulary Medication (Ropinirole Hydrochloride [Requip Xl]) 6 mg PO BID [facility] Last Admin: 04/04/17 08:29 Dose: Not Given Polyvinyl Alcohol (Polyvinyl Alcohol 1.4% Opth*) 1 drop BOTH EYES Q2H PRN PRN Reason: DRY EYE Last Admin: 04/04/17 08:24 Dose: 1 drop Objective Vital Signs: Temp Pulse Resp BP Pulse Ox 97.6 F 63 25 113/56 96 04/04/17 11:23 04/04/17 11:23 04/04/17 11:23 04/04/17 11:23 04/04/17 11:23 Oxygen Devices in Use Now: Nasal Cannula - 3L Appearance: lean tall male, seated, tachypnic mild rest, more talking. Some Parkinsonian movements noted. Eyes: No Scleral Icterus, PERRLA Ears/Nose/Mouth/Throat: Mucous Membranes Moist Neck: No Thyroid Enlargement, Masses Respiratory: Symmetrical Chest Expansion and Respiratory Effort - diffuse wheezing and rhonchi Cardiovascular: RRR Abdominal: NL Sounds; No Tenderness; No Distention Extremities: No Edema, No Clubbing, Cyanosis Skin: No Rash or Ulcers Lines/Tubes/Other Access: Clean, Dry and Intact Peripheral IV Laboratory Results: 04/04/17 04:44 04/04/17 04:44 INR (Anticoag Therapy) 1.12 (0.89-1.11) H 04/03/17 08:12 APTT 27.9 seconds (26.0-36.3) 04/03/17 17:32 Total Bilirubin 0.50 mg/dL (0.2-1.0) 04/02/17 19:42 AST 34 U/L (13-39) 04/02/17 19:42 ALT 5 U/L (7-52) L 04/02/17 19:42 Alkaline Phosphatase 83 U/L (34-104) 04/02/17 19:42 B-Natriuretic Peptide 564 pg/mL (-100) H 04/02/17 19:42 Total Protein 6.4 g/dL (6.4-8.9) 04/02/17 19:42 Albumin 3.0 g/dL (3.2-5.2) L 04/02/17 19:42 Globulin 3.4 g/dL (2-4) 04/02/17 19:42 Albumin/Globulin Ratio 0.9 (1-3) L 04/02/17 19:42 Triglycerides 58 mg/dL 04/03/17 08:12 Cholesterol 126 mg/dL 04/03/17 08:12 LDL Cholesterol 66 mg/dL 04/03/17 08:12 HDL Cholesterol 48.6 mg/dL 04/03/17 08:12 04/03/17 04/03/17 04/03/17 01:24 08:12 12:01 Troponin I 4.19 H* 5.64 H* 4.87 H* Diagnostic Imaging: ECHO: EF 25-30%, mild AI, mild MR, mild to mod TR. 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 Afib felt to be new as apparently not in at [facility] with urological procedure. Now in NSR and holding with amiodarone. Still tachypnic. AFIB: -continue amiodarone -continue anticoagulation. CM: ischemic and/or rate related. Continue BB and ACEI repeat echo in approx 1 month. Continue lasix for now. SOB/abnormal lung exam: -Pt aspirated eating, ? contributing as well PKSN's -Sinamet and low BP by hx noted. -Flurinef noted and this could contribute volume overload. Volume status, daily weights and education wrt sodium suggested. Pt asked about EtOH, I advised to avoid if he wants to stay out of afib.
--- NOTE | 2017-04-04 15:16 | PN ---
Subjective Date of Service: 04/04/17 Interval History: Patient seen and examined at bedside. Pt states that his breathing is improving. Denies fever, chills, chest discomfort, N/V/D. Per NSG staff Pt noted to have a cough when laying down and throat clearing, concern for possible aspiration. Will get a Swallow eval. Tele: Sinus rhythm, rate 60-70's. Family History: Unchanged from Admission Social History: Unchanged from Admission Past Medical History: Unchanged from Admission Objective Active Medications: Acetaminophen (Tylenol Tab*) 650 mg PO Q4H PRN Reason: FEVER/PAIN Amiodarone HCl (Cordarone Tab*) 200 mg PO DAILY [facility] Apixaban (Eliquis) 2.5 mg PO BID [facility] Aspirin (Ecotrin Ec Tab*) 325 mg PO DAILY [facility] Atorvastatin Calcium (Lipitor*) 80 mg PO 1700 [facility] Carbidopa/Levodopa (Sinemet 25/100 Tab(*)) 2 tab PO BEDTIME [facility] Carbidopa/Levodopa (Sinemet 25/100 Tab(*)) 2.5 tab PO 0600,0900,1130 [facility] Carbidopa/Levodopa (Sinemet 25/100 Tab(*)) 2.5 tab PO 1400,1630 [facility] Carvedilol (Coreg Tab*) 3.125 mg PO BID [facility] Ciprofloxacin (Cipro Tab*) 500 mg PO BID [facility] Duloxetine HCl (Cymbalta Cap*) 40 mg PO DAILY [facility] Fludrocortisone Acetate (Florinef Tab*) 0.1 mg PO DAILY [facility] Furosemide (Lasix Tab*) 20 mg PO DAILY [facility] Lisinopril (Prinivil Tab*) 5 mg PO DAILY [facility] Polyvinyl Alcohol (Polyvinyl Alcohol 1.4% Opth*) 1 drop BOTH EYES Q2H PRN Reason: DRY EYE Ropinirole HCl (Requip*) 4 mg PO TID [facility] Vital Signs 04/03/17 04/03/17 04/03/17 15:18 15:20 15:30 Temperature 97.3 F Pulse Rate 69 Respiratory 24 23 21 Rate Blood Pressure 114/66 (mmHg) O2 Sat by Pulse 96 Oximetry 04/03/17 04/03/17 04/03/17 20:03 20:10 20:20 Temperature 97.7 F Pulse Rate 67 Respiratory 18 19 18 Rate Blood Pressure 108/59 (mmHg) O2 Sat by Pulse 96 Oximetry 04/03/17 04/03/17 04/03/17 23:00 23:10 23:20 Temperature 98.9 F Pulse Rate 62 Respiratory 15 12 14 Rate Blood Pressure 100/56 (mmHg) O2 Sat by Pulse 97 Oximetry 04/04/17 04/04/17 04/04/17 03:50 04:00 04:01 Temperature 98.9 F Pulse Rate 61 Respiratory 14 19 24 Rate Blood Pressure 100/57 (mmHg) O2 Sat by Pulse 94 Oximetry 04/04/17 04/04/17 04/04/17 07:40 07:47 07:50 Temperature 97.4 F Pulse Rate 71 Respiratory 19 22 22 Rate Blood Pressure 97/51 (mmHg) O2 Sat by Pulse 97 Oximetry 04/04/17 11:23 Temperature 97.6 F Pulse Rate 63 Respiratory 25 Rate Blood Pressure 113/56 (mmHg) O2 Sat by Pulse 96 Oximetry Oxygen Devices in Use Now: None Appearance: NAD, laying in bed Ears/Nose/Mouth/Throat: Mucous Membranes Moist Respiratory: Symmetrical Chest Expansion and Respiratory Effort, Clear to Auscultation Cardiovascular: NL Sounds; No Murmurs; No JVD, RRR Abdominal: NL Sounds; No Tenderness; No Distention Skin: No Rash or Ulcers Neurological: Alert and Oriented x 3, NL Muscle Strength and Tone Lines/Tubes/Other Access: Clean, Dry and Intact Peripheral IV - site benign Nutrition: Taking PO's Result Diagrams: 04/04/17 04:44 04/04/17 04:44 Additional Lab and Data: Assess/Plan/Problems-Billing Assessment: Mr. Corona in an 89 yo male with PMH significant for Parkinson's disease, hypotension, GERD, prostate CA and urinary retention and is S/P recent suprapublic catheter placement who presented to the hospital for his suprapublic catheter leaking and was found to be in new onset afib with elevated troponin. - Patient Problems (1) New onset a-fib Code(s): I48.91 - UNSPECIFIED ATRIAL FIBRILLATION SNOMED Code(s): 12180994 Comment: - No evidence of PE on chest CTA - Converted to Sinus rhythm yesterday morning - [id number] score 4 - Cardiology consult, input appreciated - Continue amiodarone and eliquis (2) Elevated troponin Code(s): R74.8 - ABNORMAL LEVELS OF OTHER SERUM ENZYMES SNOMED Code(s): 369550959 Comment: - Troponin 5.02, 4.19, 5.64, 4.87 - Suspect demand ischemia NSTEMI secondary to tachycardia with Afib w/ RVR - Carology consult, input appreciated (3) Diastolic CHF Code(s): I50.30 - UNSPECIFIED DIASTOLIC (CONGESTIVE) HEART FAILURE SNOMED Code (s): 787949210 Comment: - ? Acute diastolic HF - TTE shows abnormal diastolic filling, EF 25-30% - Cardiology consult, input appreciated - Daily weight, strict I+O's - Continue lasix, ACEI, BB - Repeat echo as outpatient in about 1 month (4) Fracture of thoracic spine Code(s): S22.009A - UNSP FRACTURE OF UNSP THORACIC VERTEBRA, INIT FOR CLOS FX SNOMED Code(s): 857985998 Comment: - Acute vs subacute - Neurosurgery consult, input appreciated - PT eval complete, Pt is at baseline mobility (5) UTI (urinary tract infection) Comment: - Afebrile and leukocytosis improving - Pt diagnosed with UTI 03/26, culture grew Pseudomonas Aeruginosa - Continue Cipro day 05/20 (6) Hypotension Comment: - SBP 90-110's - Continue Florinef for now, use with caution with HF as it can contribute to fluid overload (7) Parkinson disease Current Visit: No Status: Chronic Code(s): G20 - PARKINSON'S DISEASE SNOMED Code(s): 13344699 Comment: - Continue home medications (8) DVT prophylaxis Code(s): LEH4429 - SNOMED Code(s): 829628428 Comment: - Delfino (9) DNR (do not resuscitate) Status and Disposition: Inpatient. Discharge to home ([facility]) when medically stable, possible in the AM.
[2017-04-04] MEDS: Atorvastatin* 80 MG TAB PO SCH (16:43)
[2017-04-04] MEDS: rOPINIRole TAB* 4 MG PO SCH ×2 (20:18→20:46)
[2017-04-04] MEDS ORDERED: rOPINIRole TAB* 1 MG PO SCH (21:00)
[2017-04-04] MEDS ORDERED: rOPINIRole TAB* 4 MG PO SCH (21:00)
[2017-04-05 04:55] LABS: Hematocrit 38 % (42-52); Hemoglobin 12.6 g/dl (14.0-18.0); Mean Corpuscular HGB Conc 33 g/dl (31-36); Mean Corpuscular Hemoglobin 33 pg (27-31); Mean Corpuscular Volume 99 fL (80-94); Mean Platelet Volume 7 um3 (7.4-10.4); Red Blood Count 3.84 10^6/ul (4.0-5.4); Red Cell Distribution Width 14 % (10.5-15); White Blood Count 10.4 10^3/ul (3.5-10.8)
[2017-04-05] MEDS: Carbidopa/Levodop 25/100 MG TAB(*) PO SCH ×6 (05:35→21:32)
[2017-04-05] MEDS: rOPINIRole TAB* 4 MG PO SCH ×3 (09:21→21:32)
[2017-04-05] MEDS: DULoxetine DR CAP* 20 MG CAP.DR PO SCH (09:21)
[2017-04-05] MEDS: Carvedilol TAB* 3.125 MG PO SCH ×2 (09:21→21:32)
[2017-04-05] MEDS: Lisinopril TAB* 5 MG PO SCH (09:22)
[2017-04-05] MEDS: Aspirin EC TAB* 325 MG PO SCH (09:22)
[2017-04-05] MEDS: Ciprofloxacin TAB* 500 MG PO SCH ×2 (09:22→21:32)
[2017-04-05] MEDS: Amiodarone TAB* 200 MG PO SCH (09:22)
[2017-04-05] MEDS: Fludrocortisone Acetate TAB* 0.1 MG PO SCH (09:22)
[2017-04-05] MEDS: Furosemide TAB* 20 MG PO SCH (09:22)
[2017-04-05] MEDS: Apixaban* 2.5 MG TAB PO SCH ×2 (09:53→21:32)
--- NOTE | 2017-04-05 13:03 | RAD ---
HISTORY: Dyspnea COMPARISONS: April 02, 2017 VIEWS: 2: Frontal and lateral views of the chest. FINDINGS: CARDIOMEDIASTINAL SILHOUETTE: The cardiomediastinal silhouette is normal. SARAH: The sarah are normal. PLEURA: The costophrenic angles are sharp. No pleural abnormalities are noted. LUNG PARENCHYMA: The lung volumes are low. There is confluent alveolar opacification in the left lower lobe. ABDOMEN: The upper abdomen is clear. There is no subphrenic gas. BONES AND SOFT TISSUES: No bone or soft tissue abnormalities are noted. OTHER: None. IMPRESSION: LOW LUNG VOLUMES WITH LEFT BASILAR ATELECTASIS VERSUS CONSOLIDATION
--- NOTE | 2017-04-05 13:19 | PN ---
Subjective Date of Service: 04/05/17 Interval History: still dyspneic at times daughter at bedside no syncope back in Afib rate controlled Medications Active Medications: Acetaminophen (Tylenol Tab*) 650 mg PO Q4H PRN PRN Reason: FEVER/PAIN Last Admin: 04/03/17 08:37 Dose: 650 mg Amiodarone HCl (Cordarone Tab*) 200 mg PO DAILY [facility] Last Admin: 04/05/17 09:22 Dose: 200 mg Apixaban (Eliquis) 2.5 mg PO BID [facility] Last Admin: 04/05/17 09:53 Dose: 2.5 mg Atorvastatin Calcium (Lipitor*) 80 mg PO 1700 [facility] Last Admin: 04/04/17 16:43 Dose: 80 mg Carbidopa/Levodopa (Sinemet 25/100 Tab(*)) 2 tab PO BEDTIME [facility] Last Admin: 04/04/17 20:17 Dose: 2 tab Carbidopa/Levodopa (Sinemet 25/100 Tab(*)) 2.5 tab PO 0600,0900,1130 [facility] Last Admin: 04/05/17 12:09 Dose: 2.5 tab Carbidopa/Levodopa (Sinemet 25/100 Tab(*)) 2.5 tab PO 1400,1630 [facility] Last Admin: 04/04/17 16:43 Dose: 2.5 tab Carvedilol (Coreg Tab*) 3.125 mg PO BID [facility] Last Admin: 04/05/17 09:21 Dose: 3.125 mg Ciprofloxacin (Cipro Tab*) 500 mg PO BID [facility] Last Admin: 04/05/17 09:22 Dose: 500 mg Duloxetine HCl (Cymbalta Cap*) 40 mg PO DAILY [facility] Last Admin: 04/05/17 09:21 Dose: 40 mg Fludrocortisone Acetate (Florinef Tab*) 0.1 mg PO DAILY [facility] Last Admin: 04/05/17 09:22 Dose: 0.1 mg Furosemide (Lasix Tab*) 20 mg PO DAILY [facility] Last Admin: 04/05/17 09:22 Dose: 20 mg Lisinopril (Prinivil Tab*) 5 mg PO DAILY [facility] Last Admin: 04/05/17 09:22 Dose: 5 mg Polyvinyl Alcohol (Polyvinyl Alcohol 1.4% Opth*) 1 drop BOTH EYES Q2H PRN PRN Reason: DRY EYE Last Admin: 04/04/17 08:24 Dose: 1 drop Ropinirole HCl (Requip*) 4 mg PO TID [facility] Last Admin: 04/05/17 09:21 Dose: 4 mg Objective Vital Signs: Temp Pulse Resp BP Pulse Ox 98.3 F 70 15 91/57 96 04/05/17 11:40 04/05/17 11:40 04/05/17 12:10 04/05/17 11:40 04/05/17 11:40 Oxygen Devices in Use Now: None Appearance: lean tall male, seated, tachypnic mild rest, more talking. Some Parkinsonian movements noted. Eyes: No Scleral Icterus, PERRLA Ears/Nose/Mouth/Throat: Mucous Membranes Moist Neck: No Thyroid Enlargement, Masses Respiratory: Symmetrical Chest Expansion and Respiratory Effort - diffuse wheezing and rhonchi, - - coarse bs basese Cardiovascular: - - irregularly irregular, no significant murmur Abdominal: NL Sounds; No Tenderness; No Distention Extremities: No Edema, No Clubbing, Cyanosis Skin: No Rash or Ulcers Lines/Tubes/Other Access: Clean, Dry and Intact Peripheral IV Laboratory Results: 04/05/17 04:29 04/04/17 04:44 INR (Anticoag Therapy) 1.12 (0.89-1.11) H 04/03/17 08:12 APTT 27.9 seconds (26.0-36.3) 04/03/17 17:32 Total Bilirubin 0.50 mg/dL (0.2-1.0) 04/02/17 19:42 AST 34 U/L (13-39) 04/02/17 19:42 ALT 5 U/L (7-52) L 04/02/17 19:42 Alkaline Phosphatase 83 U/L (34-104) 04/02/17 19:42 B-Natriuretic Peptide 564 pg/mL (-100) H 04/02/17 19:42 Total Protein 6.4 g/dL (6.4-8.9) 04/02/17 19:42 Albumin 3.0 g/dL (3.2-5.2) L 04/02/17 19:42 Globulin 3.4 g/dL (2-4) 04/02/17 19:42 Albumin/Globulin Ratio 0.9 (1-3) L 04/02/17 19:42 Triglycerides 58 mg/dL 04/03/17 08:12 Cholesterol 126 mg/dL 04/03/17 08:12 LDL Cholesterol 66 mg/dL 04/03/17 08:12 HDL Cholesterol 48.6 mg/dL 04/03/17 08:12 04/03/17 04/03/17 04/03/17 01:24 08:12 12:01 Troponin I 4.19 H* 5.64 H* 4.87 H* Diagnostic Imaging: ECHO: EF 25-30%, mild AI, mild MR, mild to mod TR. 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 Afib felt to be new as apparently not noted at recent urological procedure. Back in AFib. Intermittent afib now on telemetry. ? aspiration. DNR status. Previously declined coronary angiogram. -continue amiodarone, may help revert and maintain SR in near future, at very least is providing rate control -continue eliquis 2.5 mg PO BID. Stop aspirin (ordered) - Continue statin - coreg 3.125 mg PO BID - continue lisinopril 5 mg po daily - BP too low for aldactone currently, would benefit if BP improves - continue lasix 20 mg PO daily, - CXR today (ordered) - ? aspirating
[2017-04-05] MEDS ORDERED: Albuterol/Ipratropium NEB.SOL* Albuterol 2.5 MG/Ipratropium 0.5 MG 3 ML INH ONE (14:37)
[2017-04-05] MEDS ORDERED: Furosemide IV* 10 MG/ML 2 ML VIAL (20 MG) IV ONE (14:38)
[2017-04-05] MEDS ORDERED: Albuterol/Ipratropium NEB.SOL* Albuterol 2.5 MG/Ipratropium 0.5 MG 3 ML INH PRN (14:39)
--- NOTE | 2017-04-05 14:42 | PN ---
Cardiology Progress Note Patient with worsening dyspnea today Went back in Afib overnight ? related Also frequent cough ? aspiration Will give 20 mg IV lasix x 1 now and duoneb (along with PRN) Repeat swallow evaluation pending D/w patient, daughter at bedside and MATHEW Carl
[2017-04-05] MEDS ORDERED: Potassium Chlor TAB* 20 MEQ TAB.ER PO ONE (15:00)
--- NOTE | 2017-04-05 16:16 | DCNOTE ---
Subjective Date of Service: 04/05/17 Interval History: Feels better after IV furosemide and albuterol/ipratropium. No cough. Overall diminished appetite last week or so. Family History: Unchanged from Admission Social History: Unchanged from Admission Past Medical History: Unchanged from Admission Objective Active Medications: Acetaminophen (Tylenol Tab*) 650 mg PO Q4H PRN PRN Reason: FEVER/PAIN Last Admin: 04/03/17 08:37 Dose: 650 mg Albuterol/Ipratropium (Duoneb (Albuterol 2.5 Mg/Ipratropium 0.5 Mg)) 1 neb INH Q6H PRN PRN Reason: SOB/WHEEZING Amiodarone HCl (Cordarone Tab*) 200 mg PO DAILY [facility] Last Admin: 04/05/17 09:22 Dose: 200 mg Apixaban (Eliquis) 2.5 mg PO BID [facility] Last Admin: 04/05/17 09:53 Dose: 2.5 mg Atorvastatin Calcium (Lipitor*) 80 mg PO 1700 [facility] Last Admin: 04/04/17 16:43 Dose: 80 mg Carbidopa/Levodopa (Sinemet 25/100 Tab(*)) 2 tab PO BEDTIME [facility] Last Admin: 04/04/17 20:17 Dose: 2 tab Carbidopa/Levodopa (Sinemet 25/100 Tab(*)) 2.5 tab PO 0600,0900,1130 [facility] Last Admin: 04/05/17 12:09 Dose: 2.5 tab Carbidopa/Levodopa (Sinemet 25/100 Tab(*)) 2.5 tab PO 1400,1630 [facility] Last Admin: 04/05/17 14:53 Dose: 2.5 tab Carvedilol (Coreg Tab*) 3.125 mg PO BID [facility] Last Admin: 04/05/17 09:21 Dose: 3.125 mg Ciprofloxacin (Cipro Tab*) 500 mg PO BID [facility] Last Admin: 04/05/17 09:22 Dose: 500 mg Duloxetine HCl (Cymbalta Cap*) 40 mg PO DAILY [facility] Last Admin: 04/05/17 09:21 Dose: 40 mg Fludrocortisone Acetate (Florinef Tab*) 0.1 mg PO DAILY [facility] Last Admin: 04/05/17 09:22 Dose: 0.1 mg Furosemide (Lasix Tab*) 20 mg PO DAILY [facility] Last Admin: 04/05/17 09:22 Dose: 20 mg Lisinopril (Prinivil Tab*) 5 mg PO DAILY [facility] Last Admin: 04/05/17 09:22 Dose: 5 mg Polyvinyl Alcohol (Polyvinyl Alcohol 1.4% Opth*) 1 drop BOTH EYES Q2H PRN PRN Reason: DRY EYE Last Admin: 04/04/17 08:24 Dose: 1 drop Ropinirole HCl (Requip*) 4 mg PO TID [facility] Last Admin: 04/05/17 14:53 Dose: 4 mg Vital Signs 04/04/17 04/04/17 04/04/17 16:20 16:30 16:40 Temperature Pulse Rate Respiratory 8 1 0 Rate Blood Pressure (mmHg) O2 Sat by Pulse Oximetry 04/04/17 04/04/17 04/04/17 16:50 17:00 17:10 Temperature Pulse Rate Respiratory 20 22 20 Rate Blood Pressure (mmHg) O2 Sat by Pulse Oximetry 04/04/17 04/04/17 04/04/17 17:20 17:30 17:40 Temperature Pulse Rate Respiratory 12 17 13 Rate Blood Pressure (mmHg) O2 Sat by Pulse Oximetry 04/04/17 04/04/17 04/04/17 17:50 18:00 18:10 Temperature Pulse Rate Respiratory 12 11 14 Rate Blood Pressure (mmHg) O2 Sat by Pulse Oximetry 04/04/17 04/04/17 04/04/17 18:20 18:30 18:40 Temperature Pulse Rate Respiratory 15 21 34 Rate Blood Pressure (mmHg) O2 Sat by Pulse Oximetry 04/04/17 04/04/17 04/04/17 18:50 19:00 19:10 Temperature Pulse Rate Respiratory 31 27 32 Rate Blood Pressure (mmHg) O2 Sat by Pulse Oximetry 04/04/17 04/04/17 04/04/17 19:20 19:24 19:30 Temperature 97.4 F Pulse Rate 70 Respiratory 27 24 28 Rate Blood Pressure 104/57 (mmHg) O2 Sat by Pulse 97 Oximetry 04/04/17 04/04/17 04/04/17 19:40 19:50 20:00 Temperature Pulse Rate Respiratory 29 20 15 Rate Blood Pressure (mmHg) O2 Sat by Pulse Oximetry 04/04/17 04/04/17 04/04/17 20:10 20:15 20:20 Temperature Pulse Rate Respiratory 28 24 38 Rate Blood Pressure (mmHg) O2 Sat by Pulse Oximetry 04/04/17 04/04/17 04/04/17 20:30 20:40 20:50 Temperature Pulse Rate Respiratory 13 28 21 Rate Blood Pressure (mmHg) O2 Sat by Pulse Oximetry 04/04/17 04/04/17 04/04/17 21:00 21:10 21:20 Temperature Pulse Rate Respiratory 29 22 18 Rate Blood Pressure (mmHg) O2 Sat by Pulse Oximetry 04/04/17 04/04/17 04/04/17 21:30 21:39 21:40 Temperature Pulse Rate Respiratory 18 18 17 Rate Blood Pressure (mmHg) O2 Sat by Pulse Oximetry 04/04/17 04/04/17 04/04/17 21:50 22:00 22:10 Temperature Pulse Rate Respiratory 18 22 25 Rate Blood Pressure (mmHg) O2 Sat by Pulse Oximetry 04/04/17 04/04/17 04/04/17 22:20 22:30 22:40 Temperature Pulse Rate Respiratory 26 21 15 Rate Blood Pressure (mmHg) O2 Sat by Pulse Oximetry 04/04/17 04/04/17 04/04/17 22:50 23:00 23:10 Temperature Pulse Rate Respiratory 19 21 20 Rate Blood Pressure (mmHg) O2 Sat by Pulse Oximetry 04/04/17 04/04/17 04/04/17 23:20 23:30 23:40 Temperature Pulse Rate Respiratory 19 19 19 Rate Blood Pressure (mmHg) O2 Sat by Pulse Oximetry 04/04/17 04/05/17 04/05/17 23:50 00:00 00:10 Temperature Pulse Rate Respiratory 17 19 18 Rate Blood Pressure (mmHg) O2 Sat by Pulse Oximetry 04/05/17 04/05/17 04/05/17 00:20 00:30 00:33 Temperature 97.6 F Pulse Rate 71 Respiratory 17 24 16 Rate Blood Pressure 105/53 (mmHg) O2 Sat by Pulse 94 Oximetry 04/05/17 04/05/17 04/05/17 00:40 00:50 01:00 Temperature Pulse Rate Respiratory 17 17 15 Rate Blood Pressure (mmHg) O2 Sat by Pulse Oximetry 04/05/17 04/05/17 04/05/17 01:10 01:20 01:30 Temperature Pulse Rate Respiratory 28 21 18 Rate Blood Pressure (mmHg) O2 Sat by Pulse Oximetry 04/05/17 04/05/17 04/05/17 01:40 01:50 02:00 Temperature Pulse Rate Respiratory 22 21 19 Rate Blood Pressure (mmHg) O2 Sat by Pulse Oximetry 04/05/17 04/05/17 04/05/17 02:10 02:20 02:30 Temperature Pulse Rate Respiratory 8 11 21 Rate Blood Pressure (mmHg) O2 Sat by Pulse Oximetry 04/05/17 04/05/17 04/05/17 02:40 02:50 03:00 Temperature Pulse Rate Respiratory 4 18 2 Rate Blood Pressure (mmHg) O2 Sat by Pulse Oximetry 04/05/17 04/05/17 04/05/17 03:10 03:20 03:30 Temperature Pulse Rate Respiratory 10 13 24 Rate Blood Pressure (mmHg) O2 Sat by Pulse Oximetry 04/05/17 04/05/17 04/05/17 03:31 03:40 03:50 Temperature 97.3 F Pulse Rate 68 Respiratory 16 22 2 Rate Blood Pressure 96/59 (mmHg) O2 Sat by Pulse 97 Oximetry 04/05/17 04/05/17 04/05/17 04:00 04:10 04:20 Temperature Pulse Rate Respiratory 4 10 8 Rate Blood Pressure (mmHg) O2 Sat by Pulse Oximetry 04/05/17 04/05/17 04/05/17 04:30 04:40 04:50 Temperature Pulse Rate Respiratory 18 0 2 Rate Blood Pressure (mmHg) O2 Sat by Pulse Oximetry 04/05/17 04/05/17 04/05/17 05:00 05:10 05:20 Temperature Pulse Rate Respiratory 14 21 14 Rate Blood Pressure (mmHg) O2 Sat by Pulse Oximetry 04/05/17 04/05/17 04/05/17 05:30 05:40 05:50 Temperature Pulse Rate Respiratory 4 17 19 Rate Blood Pressure (mmHg) O2 Sat by Pulse Oximetry 04/05/17 04/05/17 04/05/17 06:00 06:10 06:20 Temperature Pulse Rate Respiratory 10 18 12 Rate Blood Pressure (mmHg) O2 Sat by Pulse Oximetry 04/05/17 04/05/17 04/05/17 06:30 06:40 06:50 Temperature Pulse Rate Respiratory 13 21 22 Rate Blood Pressure (mmHg) O2 Sat by Pulse Oximetry 04/05/17 04/05/17 04/05/17 07:00 07:10 07:20 Temperature Pulse Rate Respiratory 14 19 27 Rate Blood Pressure (mmHg) O2 Sat by Pulse Oximetry 04/05/17 04/05/17 04/05/17 07:30 07:33 07:40 Temperature Pulse Rate 72 Respiratory 15 28 28 Rate Blood Pressure 117/69 (mmHg) O2 Sat by Pulse 97 Oximetry 04/05/17 04/05/17 04/05/17 07:49 07:50 08:00 Temperature Pulse Rate Respiratory 24 23 23 Rate Blood Pressure (mmHg) O2 Sat by Pulse Oximetry 04/05/17 04/05/17 04/05/17 08:10 08:20 08:30 Temperature Pulse Rate Respiratory 23 22 25 Rate Blood Pressure (mmHg) O2 Sat by Pulse Oximetry 04/05/17 04/05/17 04/05/17 08:40 08:50 09:00 Temperature Pulse Rate Respiratory 25 19 22 Rate Blood Pressure (mmHg) O2 Sat by Pulse Oximetry 04/05/17 04/05/17 04/05/17 09:10 09:20 09:30 Temperature Pulse Rate Respiratory 21 17 21 Rate Blood Pressure (mmHg) O2 Sat by Pulse Oximetry 04/05/17 04/05/17 04/05/17 09:40 09:50 10:00 Temperature Pulse Rate Respiratory 19 19 19 Rate Blood Pressure (mmHg) O2 Sat by Pulse Oximetry 04/05/17 04/05/17 04/05/17 10:10 10:20 10:30 Temperature Pulse Rate Respiratory 16 17 11 Rate Blood Pressure (mmHg) O2 Sat by Pulse Oximetry 04/05/17 04/05/17 04/05/17 10:40 10:50 11:00 Temperature Pulse Rate Respiratory 17 18 11 Rate Blood Pressure (mmHg) O2 Sat by Pulse Oximetry 04/05/17 04/05/17 04/05/17 11:10 11:20 11:30 Temperature Pulse Rate Respiratory 17 19 16 Rate Blood Pressure (mmHg) O2 Sat by Pulse Oximetry 04/05/17 04/05/17 04/05/17 11:40 11:50 12:00 Temperature 98.3 F Pulse Rate 70 Respiratory 21 14 21 Rate Blood Pressure 91/57 (mmHg) O2 Sat by Pulse 96 Oximetry 04/05/17 04/05/17 12:10 15:25 Temperature Pulse Rate 92 Respiratory 15 22 Rate Blood Pressure (mmHg) O2 Sat by Pulse 96 Oximetry Oxygen Devices in Use Now: None Appearance: Alert, in a chair. In good spirits. Looks comfortable. Just finished his neb tx. Eyes: No Scleral Icterus Neck: NL Appearance and Movements; NL JVP Respiratory: Symmetrical Chest Expansion and Respiratory Effort, Clear to Auscultation, Clear to Percussion Cardiovascular: NL Sounds; No Murmurs; No JVD, RRR, No Edema, - Extremities: No Edema, No Clubbing, Cyanosis, - Skin: No Rash or Ulcers, No Nodules or Sclerosis Neurological: Alert and Oriented x 3, NL Sensation, - - restless legs and arms. faint voice. no tremor. Result Diagrams: 04/05/17 04:29 04/04/17 04:44 Additional Lab and Data: Assess/Plan/Problems-Billing Assessment: Mr. Corona in an 89 yo male with PMH significant for Parkinson's disease, hypotension, GERD, prostate CA and urinary retention and is S/P recent suprapublic catheter placement who presented to the hospital for his suprapublic catheter leaking and was found to be in new onset afib with elevated troponin. - Patient Problems (1) Cardiomyopathy Current Visit: Yes Status: Acute Code(s): I42.9 - CARDIOMYOPATHY, UNSPECIFIED SNOMED Code(s): 96421191 Comment: Continue lisinopril, carvedilol, statin, furosemide. Add daily KCL. BMP 04/06 and as outpt on 04/09. (2) Atrial fibrillation Current Visit: Yes Status: Acute Code(s): I48.91 - UNSPECIFIED ATRIAL FIBRILLATION SNOMED Code(s): 52900534 Comment: Continue apixaban. Discussed with Dr. Arora. Patient may have been wheezing and SOB due to being in atrial fib today despite controlled rate. Amiodarone 400 mg now then 400 mg bid for 7 more doses, then 200 mg daily. (3) Corticobasal degeneration Current Visit: Yes Status: Acute Code(s): G31.85 - CORTICOBASAL DEGENERATION SNOMED Code(s): 86561457 Comment: Continue carbidopa/Ldopa, ropinorole (4) Urinary retention Current Visit: Yes Status: Acute Code(s): R33.9 - RETENTION OF URINE, UNSPECIFIED SNOMED Code(s): 874200779 Comment: Suprapubic catheter 03/30/17. Stop ciprofloxacin after 7 days (04/06) . Status and Disposition: Discharge to [facility] ([facility]) 04/07 10 AM.
[2017-04-05] MEDS ORDERED: Amiodarone TAB* 400 MG PO ONE (16:29)
[2017-04-05] MEDS ORDERED: Potassium Chlor TAB* 20 MEQ TAB.ER PO SCH (16:30)
[2017-04-05] MEDS: Atorvastatin* 80 MG TAB PO SCH (17:06)
[2017-04-06 05:11] LABS: Hematocrit 33 % (42-52); Hemoglobin 11.2 g/dl (14.0-18.0); Mean Corpuscular HGB Conc 34 g/dl (31-36); Mean Corpuscular Hemoglobin 33 pg (27-31); Mean Corpuscular Volume 97 fL (80-94); Mean Platelet Volume 7 um3 (7.4-10.4); Red Blood Count 3.43 10^6/ul (4.0-5.4); Red Cell Distribution Width 14 % (10.5-15)
[2017-04-06 05:24] LABS: BUN/Creatinine Ratio 27.5 (8-20); EGFR African American 117.1 (>60); Potassium 3.8 mmol/L (3.5-5.0)
[2017-04-06] MEDS: Carbidopa/Levodop 25/100 MG TAB(*) PO SCH ×2 (06:01→08:54)
--- NOTE | 2017-04-06 07:26 | TRS ---
CC: Dr. Zendejas; Dr. Solares * DISCHARGE SUMMARY: DATE OF ADMISSION: 04/02/17 DATE OF DISCHARGE: 04/05/17 HISTORY OF PRESENT ILLNESS: This 89-year-old male presented with chest pain. He had an outpatient insertion of a suprapubic catheter at another hospital on 03/30/17. He had some sedation and/or anesthesia due to his restless legs. I think he was started on Ciprofloxacin at that time, possibly as a prophylactic measure. The urine culture in our hospital from 03/26/17 showed pseudomonas resistant to levofloxacin and intermediate to ciprofloxacin. The patient developed wheezing at home and complained of chest tightness. His blood pressure seen higher than normal. Because of these several complaints, he was brought to the emergency room where he was found to be in rapid atrial fibrillation with a troponin of 5. He has no history of atrial fibrillation. 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 Doing urine straight cath at home, but there was difficulty passing the catheter and it was felt that the suprapubic catheter was the best option. The patient had an echocardiogram on 04/02/17. This showed ejection fraction of 25 to 30% with severe hypokinesis to akinesis of the inferior wall, moderate anterior wall hypokinesis. The patient was given furosemide 40 mg IV in the emergency room. He was started on oral furosemide, amiodarone, lisinopril, and carvedilol. He was also started on apixaban. He converted to sinus rhythm. He at least one other time, including the day before discharge 04/05/17, he was in atrial fibrillation again; but by later on 04/05/17 he was in normal sinus rhythm. Shortly after he went into atrial fibrillation he had more wheezing. Dr. Arora ordered 20 mg of furosemide IV. He also ordered nebulizer treatment with albuterol and ipratropium. Almost immediately following these two measures , the patient's lungs were clear. He was no longer wheezing. He is still a rather anxious man. Occasionally he hyperventilates while we are with him. He told me himself he was anxious. I think this is pretty much his baseline personality. His three daughters were present and said normally he would never complain of anything and it's really, in some ways, difficult to elicit specific symptoms from him. Dr. Arora's feeling was that the patient, although he was rate controlled on subsequent times with his atrial fibrillation, he still could not tolerate the atrial fibrillation due to the loss of the atrial kick, and that trying to rhythm control him might be the best option to reduce his wheezing and dyspnea. He was only getting 200 mg daily of amiodarone up until 04/05/17. He got an extra 400 mg on 04/05/17. He will take 400 mg b.i.d. for a total of eight doses and then go back to 200 mg daily. [facility]. I think he can stop the ciprofloxacin on 04/06/17. He got a little extra potassium on 04/05/17, and will have a BNP on the morning before discharge on 04/06/17. I would recommend another BNP on 04/09/17. DISCHARGE DIAGNOSES: 1. 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 2. Paroxysmal atrial fibrillation. 3. Corticobasal degeneration. 4. Urinary retention. DISCHARGE MEDICATIONS: 1. Acetaminophen 650 mg every 4 hours p.r.n. 2. Albuterol ipratropium 2.5/0.5 mg every 4 hours p.r.n. by nebulizer. 3. Amiodarone 400 mg b.i.d. until the morning of April 10, then 200 mg once daily. 4. Apixaban 2.5 mg b.i.d. 5. Atorvastatin 80 mg daily at 5 p.m. 6. Carvedilol 3.125 mg b.i.d. 7. Furosemide 20 mg daily. 8. Lisinopril 5 mg every day. 9. Potassium chloride 20 mEq daily. 10. Ropinirole 6 mg b.i.d. 11. Aspirin was discontinued. 12. Duloxetine 40 mg daily. 13. Sennosides-docusate 2 h.s. 14. Ibuprofen 600 mg every 8 hours p.r.n. 15. Refresh tears 0.5 b.i.d. 16. Fludrocortisone 0.1 mg daily. 17. Carbidopa/levodopa 25/100 two at bedtime, and 2.5 tablets 5 times a day. 18. Ciprofloxacin 500 mg b.i.d. for one more day. [id number]/CPS #: [id number] MTDD
[2017-04-06 08:33] VITALS: BP 108/65
[2017-04-06] MEDS: Ciprofloxacin TAB* 500 MG PO SCH (08:52)
[2017-04-06] MEDS: Furosemide TAB* 20 MG PO SCH (08:52)
[2017-04-06] MEDS: rOPINIRole TAB* 4 MG PO SCH (08:52)
[2017-04-06] MEDS: Carvedilol TAB* 3.125 MG PO SCH (08:52)
[2017-04-06] MEDS: DULoxetine DR CAP* 20 MG CAP.DR PO SCH (08:52)
[2017-04-06] MEDS: Apixaban* 2.5 MG TAB PO SCH (08:52)
[2017-04-06] MEDS: Lisinopril TAB* 5 MG PO SCH (08:53)
[2017-04-06] MEDS: Fludrocortisone Acetate TAB* 0.1 MG PO SCH (08:53)
[2017-04-06] MEDS ORDERED: Amiodarone TAB* 200 MG PO SCH (09:00)
[2017-04-06] MEDS ORDERED: Potassium Chlor TAB* 20 MEQ TAB.ER PO SCH (09:00)
== END 2017-04-06 11:00 | DRG 308 ==
LOC: ED 18:42 → MEDTELE 22:21
PROVIDERS: ADMIT Internal Medicine; ATTEND Hospitalist
DX: I48.0 Paroxysmal atrial fibrillation (principal); I50.41 Acute combined systolic (congestive) and diastolic (congestive) heart failure; S22.061A Stable burst fracture of T7-T8 vertebra, initial encounter for closed fracture; I95.9 Hypotension, unspecified; G20 Parkinson's disease; N39.0 Urinary tract infection, site not specified; I42.9 Cardiomyopathy, unspecified; E78.00 Pure hypercholesterolemia, unspecified; N31.2 Flaccid neuropathic bladder, not elsewhere classified; K21.9 Gastro-esophageal reflux disease without esophagitis; M19.90 Unspecified osteoarthritis, unspecified site; Z96.641 Presence of right artificial hip joint; F32.9 Major depressive disorder, single episode, unspecified; R33.9 Retention of urine, unspecified; Z66 Do not resuscitate; I08.3 Combined rheumatic disorders of mitral, aortic and tricuspid valves; B96.5 Pseudomonas (aeruginosa) (mallei) (pseudomallei) as the cause of diseases classified elsewhere; G25.81 Restless legs syndrome; R74.8 Abnormal levels of other serum enzymes; M54.81 Occipital neuralgia; G31.85 Corticobasal degeneration; Y69 Unspecified misadventure during surgical and medical care; Z16.23 Resistance to quinolones and fluoroquinolones; T83.038A Leakage of other urinary catheter, initial encounter; Y92.9 Unspecified place or not applicable; Z88.8 Allergy status to other drugs, medicaments and biological substances; Z85.46 Personal history of malignant neoplasm of prostate; Z90.79 Acquired absence of other genital organ(s); Z86.19 Personal history of other infectious and parasitic diseases; Z91.81 History of falling; Z82.49 Family history of ischemic heart disease and other diseases of the circulatory system; Z72.89 Other problems related to lifestyle; Z79.01 Long term (current) use of anticoagulants
CPT/HCPCS: 36415; 71020; 71275; 80048; 80053; 80061; 83605; 83735; 83880; 84484; 85025; 85379; 85610; 85730; 93005; 93306; 94640; 94760; A9270-GY; G8996-GN-CH; G8997-GN-CH; G8998-GN-CH; J1644; J1940; J3480; Q9967

== ENCOUNTER 2017-05-26 21:08 | Observation (INO) | payer BC ==
[2017-05-26] MEDS ORDERED: NS 0.9% 1000 ML* 1,000 ML IV ONE (21:27)
[2017-05-26 22:19] LABS: Hematocrit 43 % (42-52); Hemoglobin 14.2 g/dl (14.0-18.0); Mean Corpuscular HGB Conc 33 g/dl (31-36); Mean Corpuscular Hemoglobin 32 pg (27-31); Mean Corpuscular Volume 95 fL (80-94); Mean Platelet Volume 8 um3 (7.4-10.4); Red Blood Count 4.46 10^6/ul (4.0-5.4); Red Cell Distribution Width 15 % (10.5-15); White Blood Count 31.9 10^3/ul (3.5-10.8)
[2017-05-26 22:20] LABS: Add Diff/Slide Review? Slide Review Added; Comments Flag Yes
[2017-05-26 22:36] LABS: Albumin 3.7 g/dL (3.2-5.2); BUN/Creatinine Ratio 18.6 (8-20); Calcium 9.1 mg/dL (8.6-10.3); EGFR African American 61.4 (>60); EGFR Non-African American 47.7 (>60); Globulin 2.9 g/dL (2-4); Total Bilirubin 0.8 mg/dL (0.2-1.0); Total Protein 6.6 g/dL (6.4-8.9)
[2017-05-26 22:45] LABS: Troponin I 0.04 ng/mL (<0.04)
[2017-05-26] MEDS ORDERED: Iodixanol* (CONTRAST) 320 MG/ML 100 ML SDV IV ONE (23:13)
--- NOTE | 2017-05-26 23:46 | HP ---
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 He lives at [facility] and was given a suppository for his constipation as he had not a bowel movement for one day. Subsequently, he had a few episodes of loose stool mixed with blood. He felt dizzy while having his bowel movements. The rectal bleeding was associated with diffuse abdominal pain described as "spasms" and nausea. No emesis. No fevers. No CP/SOB. Denies melena /hematemesis. No recent weight changes. Last colonoscopy was greater than 3 years ago and was "normal" per patient. Distant history of EGD. No NSAIDs/blood thinners. No recent use of antibiotics. He was last treated for C.diff about 1.5 years ago. In the ER he was noted to be hypotensive but has responded to IVFs and now his SBP is in the high 90s. HR is in the 60s. Hgb was 14.1 on admission. Lactic acid was 2.5. CT imaging is pending. He has not has any further episodes of rectal bleeding while in the ER. Patient states abdominal pain has improved and nausea is present but better. PMH: Corticobasal syndrome, urinary retention with suprapubic catheter, constipation, CHF, hx of C.diff PSH: Prostate surgery, colonoscopy and EGD > 3 years ago, suprapubic catheter insertion SOCIAL HISTORY: rare etoh use, no tobacco use, lives at [facility]: HTN ROS: Pertinent positives and negative are above in HPI. All others were reviewed and are negative. Lab Results 05/26/17 05/26/17 05/26/17 Range/Units 21:45 21:45 21:45 WBC (3.5-10.8) 10^3/ul RBC (4.0-5.4) 10^6/ul Hgb (14.0-18.0) g/dl Hct (42-52) % MCV (80-94) fL MCH (27-31) pg MCHC (31-36) g/dl RDW (10.5-15) % Plt Count (150-450) 10^3/ul MPV (7.4-10.4) um3 Neut % (Auto) (38-83) % Lymph % (Auto) (25-47) % Coos % (Auto) (1-9) % Eos % (Auto) (0-6) % Baso % (Auto) (0-2) % Absolute Neuts (auto) (1.5-7.7) 10^3/ul Absolute Lymphs (auto) (1.0-4.8) 10^3/ul Absolute Monos (auto) (0-0.8) 10^3/ul Absolute Eos (auto) (0-0.6) 10^3/ul Absolute Basos (auto) (0-0.2) 10^3/ul Absolute Nucleated RBC 10^3/ul Nucleated RBC % INR (Anticoag Therapy) 1.10 (0.89-1.11) APTT 27.8 (26.0-36.3) seconds Sodium 130 L (133-145) mmol/L Potassium 5.0 (3.5-5.0) mmol/L Chloride 97 L (101-111) mmol/L Carbon Dioxide 24 (22-32) mmol/L Anion Gap 9 (2-11) mmol/L BUN 26 H (6-24) mg/dL Creatinine 1.40 H (0.67-1.17) mg/dL Est GFR ( Amer) 61.4 (>60) Est GFR (Non-Af Amer) 47.7 (>60) BUN/Creatinine Ratio 18.6 (8-20) Glucose 136 H (70-100) mg/dL Lactic Acid (0.5-2.0) mmol/L Calcium 9.1 (8.6-10.3) mg/dL Total Bilirubin 0.80 (0.2-1.0) mg/dL AST 22 (13-39) U/L ALT 4 L (7-52) U/L Alkaline Phosphatase 125 H (34-104) U/L Troponin I 0.04 H* (<0.04) ng/mL Total Protein 6.6 (6.4-8.9) g/dL Albumin 3.7 (3.2-5.2) g/dL Globulin 2.9 (2-4) g/dL Albumin/Globulin Ratio 1.3 (1-3) Blood Type A Positive Antibody Screen Negative 05/26/17 05/26/17 Range/Units 21:45 22:00 WBC 31.9 H (3.5-10.8) 10^3/ul RBC 4.46 (4.0-5.4) 10^6/ul Hgb 14.2 (14.0-18.0) g/dl Hct 43 (42-52) % MCV 95 H (80-94) fL MCH 32 H (27-31) pg MCHC 33 (31-36) g/dl RDW 15 (10.5-15) % Plt Count 283 (150-450) 10^3/ul MPV 8 (7.4-10.4) um3 Neut % (Auto) 92.1 H (38-83) % Lymph % (Auto) 2.7 L (25-47) % Coos % (Auto) 4.6 (1-9) % Eos % (Auto) 0 (0-6) % Baso % (Auto) 0.6 (0-2) % Absolute Neuts (auto) 29.4 H (1.5-7.7) 10^3/ul Absolute Lymphs (auto) 0.9 L (1.0-4.8) 10^3/ul Absolute Monos (auto) 1.5 H (0-0.8) 10^3/ul Absolute Eos (auto) 0 (0-0.6) 10^3/ul Absolute Basos (auto) 0.2 (0-0.2) 10^3/ul Absolute Nucleated RBC 0.02 10^3/ul Nucleated RBC % 0.1 INR (Anticoag Therapy) (0.89-1.11) APTT (26.0-36.3) seconds Sodium (133-145) mmol/L Potassium (3.5-5.0) mmol/L Chloride (101-111) mmol/L Carbon Dioxide (22-32) mmol/L Anion Gap (2-11) mmol/L BUN (6-24) mg/dL Creatinine (0.67-1.17) mg/dL Est GFR ( Amer) (>60) Est GFR (Non-Af Amer) (>60) BUN/Creatinine Ratio (8-20) Glucose (70-100) mg/dL Lactic Acid 2.5 H* (0.5-2.0) mmol/L Calcium (8.6-10.3) mg/dL Total Bilirubin (0.2-1.0) mg/dL AST (13-39) U/L ALT (7-52) U/L Alkaline Phosphatase (34-104) U/L Troponin I (<0.04) ng/mL Total Protein (6.4-8.9) g/dL Albumin (3.2-5.2) g/dL Globulin (2-4) g/dL Albumin/Globulin Ratio (1-3) Blood Type Antibody Screen PHYSICAL EXAMINATION: Vital Signs: Temp Pulse Resp BP Pulse Ox 97.3 F 57 16 100/53 99 05/26/17 21:29 05/26/17 21:29 05/26/17 21:29 05/26/17 21:29 05/26/17 21:29 GENERAL: AAOx3, pale-appearing HEENT: dry MM CV: RRR PULM: CTAB ABDOMEN: soft, ttp in left lower quadrant, hyperactive BS x 4 quadrants, no R/G/ R, no HSM, suprapubic catheter present EXTREMITIES: no pedal edema NEURO: grossly intact A/P: Trell Corona is a pleasant 89 yo male with PMH of corticobasal syndrome, C.diff, constipation, CHF who presents with loose stool mixed with blood. He was noted to be hypotensive in ER but is responding to IVFs. Hgb is in normal range. WBC is 31.9 and lactic acid is 2.5. 1. Rectal bleeding - no further episodes since admission to ER ~May be secondary to ischemic colitis given history of constipation (lactic acid is 2.5) vs C.diff given significantly elevated WBC (prior hx of C.diff) vs diverticulitis. ~CT A/P ordered to further evaluate. ~Monitor Hgb. ~Continue IVF resuscitation. ~Monitor I/Os and serial lung exams given hx of CHF. ~Monitor electrolytes and lactic acid. ~Check stool studies for C.diff, enteric pathogens, fecal leukocytes. ~Discussed case with patient's daughter, Susanne, over the phone and with the patient. They would like to hold off on any invasive procedures such as colonoscopy if possible. Currently patient's rectal bleeding has stopped and hgb is stable. Will also await CT A/P to make further recommendations. If rectal bleeding develops again and/or hgb drops, will consider colonoscopy at that time. Will await stool studies and CT imaging to determine further plan of care. Discussed with Dr. Fitzpatrick as well. Will follow closely. 2. Leukocytosis ~Consider infectious cause of rectal bleeding vs ischemic colonic disease vs diverticulitis. ~Awaiting CT imaging and stool studies. Thank you Dr. Fitzpatrick for allowing me to participate in the care of your patient. If you should have any further questions or concerns please do not hesitate to call me. Yenifer Salmeron D.O.
[2017-05-27] MEDS ORDERED: Ondansetron INJ* 2 MG/ML VIAL IV PRN (00:07)
[2017-05-27] MEDS ORDERED: Docusate CAP* 100 MG PO PRN (00:07)
[2017-05-27] MEDS ORDERED: Senna TAB PO PRN (00:07)
[2017-05-27] MEDS ORDERED: Al Hydrox/Mg Hydrox/Simet LIQ* 30 ML UDC PO PRN (00:07)
[2017-05-27] MEDS ORDERED: NS 0.9% 500 ML BAG* 500 ML IV ONE (00:10)
[2017-05-27] MEDS ORDERED: NS 0.9% 1000 ML* 1,000 ML IV SCH (00:15)
[2017-05-27] MEDS ORDERED: Artificial Tears* 15 ML BTL BOTH EYES PRN (00:17)
[2017-05-27] MEDS ORDERED: Atorvastatin* 80 MG TAB PO ONE (00:21)
[2017-05-27] MEDS ORDERED: Zosyn per Pharmacy* NOTE FOLLOW UP SCH (03:00)
--- NOTE | 2017-05-27 03:28 | HP ---
CC: Feliberto Zendejas MD HISTORY AND PHYSICAL: DATE OF ADMISSION: 05/27/17 TIME OF EVALUATION: 0000. PRIMARY CARE PHYSICIAN: Feliberto Zendejas MD CHIEF COMPLAINT: Bright red blood per rectum. HISTORY OF PRESENT ILLNESS: This is an 89-year-old male with a past medical history of atrial fibrillation, on anticoagulation, who presented to the emergency room with bright red blood per rectum from [facility]. The history is obtained from the ER staff and the daughter. The patient was having some issues with constipation. The [facility] staff prescribed him stool softener. He began having some bright red blood per rectum. He was noted to be hypotensive and had a vasovagal episode while having bowel movement and he was brought to the emergency room for further evaluation. His blood pressure went as down as 70 systolic. He was having some abdominal discomfort as well. According to the staff, the patient's last colonoscopy was more than 3 years ago. I asked the daughter regarding recent antibiotic use. She states he was recently hospitalized here which I have no record of and she feels that he was recently on antibiotics. The patient is lethargic, but he awakes and answers questions appropriately. He denies any abdominal pain. No shortness of breath. No chest pain. No weakness, no lightheadedness, no dizziness. He states he was in his usual state of health other than the constipation. Otherwise, remaining review of systems is negative. In the emergency room, the patient had labs, imaging, and GI was contacted. Dr. Salmeron came in as a concern for doing a colonoscopy in the morning. She recommended observing him overnight, getting a CAT scan, and ruling him out for C. diff. PAST MEDICAL HISTORY: 1. History of urinary retention, status post suprapubic catheter. 2. History of cardiomyopathy. 3. History of paroxysmal atrial fibrillation, on anticoagulation. 4. Hyperlipidemia. 5. History of hypokalemia. 6. History of periapical abscess without sinus. 7. History of Nummular dermatitis. 8. Cervicalgia. 9. History of cognitive communication deficit. 10. History of Parkinson's disease. 11. History of recurrent urinary tract infections. 12. Osteoarthritis. 13. Depression. 14. Anxiety. 15. Fibromyalgia. 16. History of prostate cancer. PAST SURGICAL HISTORY: 1. Total hip replacement on the right. 2. Prostatectomy. 3. . 4. Cataract removal. MEDICATIONS: 1. Refresh Tears 0.5% eye drops one drop to both eyes as needed for dry eyes. 2. Azelastine 137 mcg nasal spray both nares daily. 3. Amiodarone 20 mg p.o. daily. 4. Eliquis 2.5 mg p.o. b.i.d. 5. Lisinopril 5 mg p.o. daily. 6. Potassium chloride ER 20 mEq p.o. daily. 7. Coreg 6.25 mg p.o. b.i.d. 8. Lasix 60 mg p.o. daily. 9. Tylenol 650 mg b.i.d. as needed. 10. Cymbalta 40 mg p.o. daily. 11. Sinemet 25/100 mg 2 tabs by mouth 5 times a day. 12. Senna plus 8.6/50 mg 3 tabs p.o. daily at bedtime. 13. Requip XL 6 mg extended release at bedtime. 14. Atorvastatin 80 mg p.o. daily. 15. Milk of magnesia as needed for constipation. 16. Tap water enema as needed. 17. Dulcolax suppositories as needed. 18. Clobetasol 0.05 % topical cream as needed. 19. Debrox 6.5% ear drops as needed. 20. DuoNeb as needed. 21. Oxygen 2 to 4 L as needed for shortness of breath. 22. Lorazepam 0.5 mg every 6 hours as needed for anxiety. ALLERGIES: No known drug allergies. FAMILY HISTORY: Reviewed and noncontributory. SOCIAL HISTORY: The patient resides at [facility]. Rare alcohol use. No history of tobacco use. No illicit drug use. 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 He has 4 children. His healthcare proxy, his primary is Susanne, his daughter. He does have 4 children. Her phone number is [phone]. His initial MOLST form was a DNR trial intubation. We talked about this again at length and he wants to be a DNR/DNI. MOLST form will be changed to reflect this. REVIEW OF SYSTEMS: A 14-point review of systems as mentioned in the HPI, otherwise negative. PHYSICAL EXAMINATION GENERAL: Mild ill-appearing pale with the daughter at the bedside. VITAL SIGNS: Temp 97.3, pulse rate 57, respiratory rate 16, oxygen saturation 99% on 2 L, blood pressure 100/53. HEENT: Head normocephalic. Pupils are equal and reactive. Anicteric. Oropharynx: Mucous membranes moist. NECK: Supple. No lymphadenopathy. RESPIRATORY: Diminished breath sounds. No wheeze, rhonchi, or rales. CARDIAC: Regular rate and rhythm. Soft systolic murmur heard throughout. ABDOMEN: Positive bowel sounds. Some mild firmness noted. No distention. No tenderness. EXTREMITIES: No clubbing, cyanosis, or edema. He does seem to have rigid upper contracted extremities. NEUROLOGIC: Alert and oriented x3. Symmetric, generalized weakness in his upper and lower extremities. DIAGNOSTIC STUDIES/LAB DATA: White count 31.9, hemoglobin 14.2, hematocrit 43 , platelets 283,000, INR is 1.10. Sodium 130, potassium 5.0, chloride 97, bicarb 24, BUN 26, creatinine 1.40, glucose 136, calcium 2.5, troponin 0.04, alk phos 125. Radiographic Data: Abdominal and pelvic CT, moderate to severe inflammation of the descending and sigmoid colon, which may be secondary to infection or bowel ischemia with diverticulitis considered less likely, bibasilar atelectasis ____ _ bilateral effusions worse on the left. ASSESSMENT AND PLAN: This is an 89-year-old male with a past medical history of Parkinson's and paroxysmal atrial fibrillation, on anticoagulation, who presents to the emergency room with Cathy with bright red blood per rectum. 1. Bright red blood per rectum: Assessment: The patient's CAT scan is concerning for ischemic colitis versus infectious colitis. He did get a dose of Zosyn in the emergency room. It appears that he was recently on antibiotics, although no history of diarrhea per report. Most likely, this is ischemic colitis, although the patient really has no abdominal pain at this time. Plan: We will continue to hydrate him and monitor his respiratory status closely. Admit him to telemetry. We will give him another 500 cc of bolus. Put him on 150 cc an hour until mid morning. We will check a C. diff panel. We will hold off on any further antibiotics at this time until C. diff is back and follow up with any further GI recommendations. Of note, his daughter did state that he would not even want a colonoscopy, that should be readdressed with Gastroenterology if they do feel that it is appropriate for him. And with his HCP who is not in town currently. 2. Acute kidney injury: Assessment: I suspect this in the setting of an acute illness with prerenal azotemia. Plan: We will repeat his labs in the morning. Withhold his lisinopril and Lasix and renally dose his meds. CHRONIC MEDICAL PROBLEMS: 1. Cardiomyopathy and atrial fibrillation: As mentioned, we will hold his anticoagulation. We will also hold his Coreg, lisinopril, and Lasix in the setting of his low blood pressures. 2. Parkinson's, resume his Sinemet. 3. Resume the Cymbalta as well. 4. Indeterminate troponins. Assessment: The patient with no chest pain. We will trend his troponin and treat for any symptoms, although the patient has expressed no interest in any aggressive measures taken. 5. DVT prophylaxis. The patient scores high risk, we will place him on SCDs. 6. FEN. We will place the patient on clear liquid diet with IV fluids. 7. Code status: The patient is a DNR/DNI. MOLST form will be filled out. PATIENT TIME: Greater than 70 minutes spent doing the history and physical, more than half time spent in direct patient contact. [id number]/[facility] #: [id number] [place]
[2017-05-27 03:43] LABS: Urine Bacteria Absent (Absent); Urine Bilirubin Negative (Negative); Urine Glucose Negative (Negative); Urine Nitrite Negative (Negative)
[2017-05-27] MEDS: ZOSYN 3.375 GM Q8H per EXTENDED INFUSION IVPB SCH ×6 (05:29→21:54)
[2017-05-27] MEDS: Carbidopa/Levodop 25/100 MG TAB(*) PO SCH ×5 (05:30→22:32)
[2017-05-27 05:46] LABS: Hematocrit 36 % (42-52); Hemoglobin 11.7 g/dl (14.0-18.0); Mean Corpuscular HGB Conc 33 g/dl (31-36); Mean Corpuscular Hemoglobin 32 pg (27-31); Mean Corpuscular Volume 96 fL (80-94); Mean Platelet Volume 8 um3 (7.4-10.4); Red Cell Distribution Width 15 % (10.5-15); White Blood Count 21.1 10^3/ul (3.5-10.8)
[2017-05-27 05:53] LABS: Add Diff/Slide Review? Slide Review Added; Comments Flag Yes
[2017-05-27 06:05] LABS: BUN/Creatinine Ratio 20.8 (8-20); EGFR African American 66.8 (>60); Potassium 4.7 mmol/L (3.5-5.0)
[2017-05-27 06:12] LABS: Troponin I 0.17 ng/mL (<0.04)
[2017-05-27] MEDS: Acetaminophen TAB* 325 MG PO PRN ×4 (06:57→22:37)
[2017-05-27] MEDS: Amiodarone TAB* 200 MG PO SCH (10:10)
[2017-05-27 10:47] LABS: TSH (Thyroid Stimulating Horm) 1.02 mcIU/mL (0.34-5.60)
--- NOTE | 2017-05-27 11:43 | PN ---
Progress Note - Progress Note Date of Service: 05/27/17 - Gastroenterology Note: Patient seen and examined in ICU. Daughter at bedside. No new overnight issues. Abdominal pain has improved. No nausea/emesis. No further bowel movements. Tolerating clear liquids. Vital Signs: Temp Pulse Resp BP Pulse Ox 97.5 F 52 16 114/56 95 05/27/17 08:00 05/27/17 10:01 05/27/17 10:01 05/27/17 10:00 05/27/17 10:01 Laboratory Results - last 24 hr 05/26/17 05/26/17 05/26/17 21:45 21:45 21:45 WBC RBC Hgb Hct MCV MCH MCHC RDW Plt Count MPV Neut % (Auto) Lymph % (Auto) [place] % (Auto) Eos % (Auto) Baso % (Auto) Absolute Neuts (auto) Absolute Lymphs (auto) Absolute Monos (auto) Absolute Eos (auto) Absolute Basos (auto) Absolute Nucleated RBC Nucleated RBC % INR (Anticoag Therapy) 1.10 APTT 27.8 Sodium 130 L Potassium 5.0 Chloride 97 L Carbon Dioxide 24 Anion Gap 9 BUN 26 H Creatinine 1.40 H Est GFR ( Amer) 61.4 Est GFR (Non-Af Amer) 47.7 BUN/Creatinine Ratio 18.6 Glucose 136 H Lactic Acid Calcium 9.1 Total Bilirubin 0.80 AST 22 ALT 4 L Alkaline Phosphatase 125 H Troponin I 0.04 H* Total Protein 6.6 Albumin 3.7 Globulin 2.9 Albumin/Globulin Ratio 1.3 TSH Urine Color Urine Appearance Urine pH Ur Specific [place] Urine Protein Urine Ketones Urine Blood Urine Nitrate Urine Bilirubin Urine Urobilinogen Ur Leukocyte Esterase Urine WBC (Auto) Urine RBC (Auto) Urine Bacteria Urine Glucose Blood Type A Positive Antibody Screen Negative 05/26/17 05/26/17 05/27/17 21:45 22:00 01:55 WBC 31.9 H RBC 4.46 Hgb 14.2 Hct 43 MCV 95 H MCH 32 H MCHC 33 RDW 15 Plt Count 283 MPV 8 Neut % (Auto) 92.1 H Lymph % (Auto) 2.7 L [place] % (Auto) 4.6 Eos % (Auto) 0 Baso % (Auto) 0.6 Absolute Neuts (auto) 29.4 H Absolute Lymphs (auto) 0.9 L Absolute Monos (auto) 1.5 H Absolute Eos (auto) 0 Absolute Basos (auto) 0.2 Absolute Nucleated RBC 0.02 Nucleated RBC % 0.1 INR (Anticoag Therapy) APTT Sodium Potassium Chloride Carbon Dioxide Anion Gap BUN Creatinine Est GFR ( Amer) Est GFR (Non-Af Amer) BUN/Creatinine Ratio Glucose Lactic Acid 2.5 H* Calcium Total Bilirubin AST ALT Alkaline Phosphatase Troponin I Total Protein Albumin Globulin Albumin/Globulin Ratio TSH Urine Color Elly Urine Appearance Clear Urine pH 5.0 Ur Specific [place] 1.056 H Urine Protein Negative Urine Ketones Trace H Urine Blood Negative Urine Nitrate Negative Urine Bilirubin Negative Urine Urobilinogen Negative Ur Leukocyte Esterase 3+ H Urine WBC (Auto) 3+(>20/hpf) H Urine RBC (Auto) 3+(>10/hpf) H Urine Bacteria Absent Urine Glucose Negative Blood Type Antibody Screen 05/27/17 05/27/17 05/27/17 05:33 05:33 05:33 WBC 21.1 H RBC 3.70 L Hgb 11.7 L Hct 36 L MCV 96 H MCH 32 H MCHC 33 RDW 15 Plt Count 233 MPV 8 Neut % (Auto) 91.5 H Lymph % (Auto) 3.1 L [place] % (Auto) 5.1 Eos % (Auto) 0 Baso % (Auto) 0.3 Absolute Neuts (auto) 19.3 H Absolute Lymphs (auto) 0.7 L Absolute Monos (auto) 1.1 H Absolute Eos (auto) 0 Absolute Basos (auto) 0.1 Absolute Nucleated RBC 0.02 Nucleated RBC % 0.1 INR (Anticoag Therapy) APTT Sodium 129 L Potassium 4.7 Chloride 103 Carbon Dioxide 21 L Anion Gap 5 BUN 27 H Creatinine 1.30 H Est GFR ( Amer) 66.8 Est GFR (Non-Af Amer) 52.0 BUN/Creatinine Ratio 20.8 H Glucose 125 H Lactic Acid 1.3 Calcium 8.0 L Total Bilirubin AST ALT Alkaline Phosphatase Troponin I 0.17 H* Total Protein Albumin Globulin Albumin/Globulin Ratio TSH 1.02 Urine Color Urine Appearance Urine pH Ur Specific [place] Urine Protein Urine Ketones Urine Blood Urine Nitrate Urine Bilirubin Urine Urobilinogen Ur Leukocyte Esterase Urine WBC (Auto) Urine RBC (Auto) Urine Bacteria Urine Glucose Blood Type Antibody Screen PHYSICAL EXAMINATION: GENERAL: AAOX3, NAD HEENT: MMM CV: RRR PULM: CTAB ABDOMEN: soft, NT/ND, +BS x 4 quadrants, no R/G/R. Suprapubic catheter present. EXTREMITIES: warm, no pedal edema. 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 He was noted to be hypotensive but has responded to IVFs. He was noted to have an elevated lactic acid level of 2.5 on admission which is improving with IVFs, leukocytosis of 31.9 which has also improved to 21.1 this morning. He has acute kidney injury with creatinine on admission of 1.30. CT A/P in ER revealed thickening in the descending colon and severe inflammation/thickening in sigmoid colon. Stool studies this morning came back positive for C.diff. 1. Rectal bleeding with loose stool ~Stool studies positive for C.diff. ~Colitis in the descending and sigmoid colon seen on CT A/P is likely due to C.diff colitis. ~Recommend starting Vancomycin 125 mg po QID for 10 days total. ~Hgb is relatively stable and no further episodes of rectal bleeding or loose stool. ~No indication for colonoscopy at this time given infectious colitis. Family and patient also want conservative measures which is reasonable given patient's age and co-morbidities. ~On clear liquids. May advance to soft low residue diet. 2. Acute blood loss anemia ~Likely multifactorial from rectal bleeding vs dilutional from IVFs. ~Continue to monitor hgb and signs of rectal bleeding. 3. Acute kidney injury ~On IVFs. ~Likely from hypovolemia. ~Continue to monitor. 4. Afib ~On Eliquis (on hold due to GI bleed). 5. Constipation ~Continue current bowel regimen once medically optimized. 6. Indeterminate troponins ~Continue to monitor per Hospitalist team. Discussed case with Dr. Martinez and daughter at bedside. Will treat for C.diff at this time and hold off on any invasive procedures. Will follow closely. Thank you Dr. Martinez for allowing us to participate in the care of your patient. Please do not hesitate to contact us with any further questions or concerns. Yenifer Salmeron D.O.
[2017-05-27] MEDS: DULoxetine DR CAP* 20 MG CAP.DR PO SCH (12:38)
--- NOTE | 2017-05-27 13:02 | RAD ---
INDICATION: Abdominal pain. Rectal bleeding. COMPARISON: No relevant prior exams available on the [facility] PACS for comparison. TECHNIQUE: Multidetector CT images were obtained from the lung bases to the ischial tuberosities with 85 mL Visipaque 320 IV and oral contrast. Multiplanar reformation. REPORT: Near complete atelectasis of the partially visualized LEFT lower lobe and less marked RIGHT basilar atelectasis. Small dependent LEFT pleural effusion. Cardiomegaly. Negative for pericardial effusion. Arms down position results in beam hardening artifact. Unremarkable liver. Moderately distended gallbladder without additional CT abnormality of the gallbladder. Negative for biliary dilatation. Advanced pancreatic atrophy. Unremarkable spleen with small splenule approximating the anterior inferior margin. Negative for CT abdomen malleolus the upper GI. Top normal small bowel loop at the pelvis with few air-fluid levels. While the appendix is not discretely visualized, there is no inflammatory change in the right lower quadrant or region of the tip of the cecum to suggest presence of an acute inflammatory process. Long segment mural thickening of the colon from the proximal descending colon through the sigmoid colon with sparing of the rectum. Mild perienteric inflammatory change. Mild diverticulosis without a specific visualized inflamed diverticulum. Negative for ascites, free air, hernias. Normal adrenal glands. Symmetric cortical phase enhancement of the kidneys with mildly delayed nephrograms and delayed bilateral pyelograms. Negative for hydronephrosis. Normal variant LEFT extrarenal pelvis. Unremarkable proximal ureters with the distal ureters obscured due to artifact from the RIGHT hip prosthesis. Decompressed urinary bladder with suprapubic catheter in place. Surgical clips at the inferior pelvis possibly reflecting prostatectomy. Negative for lymphadenopathy. Mild atherosclerotic plaque of normal diameter abdominal aorta. 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 Normal opacification of the celiac axis, superior mesenteric artery, and inferior mesenteric artery. Partially decompressed IVC indicating lower volume state. Negative for suspicious focal osseous lesions. Multilevel advanced degenerative spondylosis and posterior element osteoarthritis with associated multilevel severe acquired central canal stenosis from L1-L2 through L4-L5 as well as multilevel foraminal stenosis. IMPRESSION: 1. Nonspecific mural thickening at the descending colon and sigmoid colon is suspicious for colitis. No central mesenteric artery stenosis or occlusion evident. Consider infectious/inflammatory etiologies. 2. Mildly delayed nephrograms and delayed pyelograms. This may reflect prerenal renal failure given evidence for lower volume state however clinical correlation with clinical laboratory assessment. 3. Negative for lymphadenopathy. 4. Bibasilar atelectasis worse on the LEFT. Small LEFT pleural effusion.
[2017-05-27] MEDS: Vancomycin CAP* 125 MG CAP PO SCH ×3 (13:33→22:31)
--- NOTE | 2017-05-27 14:16 | PN ---
Hospitalist Progress Note I saw and examined Mr. Corona this morning and discussed his case with his daughter Veronika and Dr. Salmeron. He has been hemodynamically stable overnight, has not required blood transfusions, and had a small loose bowel movement this morning that was reported to have some dark blood mixed in. His daughter reinforces with me that they do not want to pursue even a colonoscopy or endoscopy. She and her siblings agree that comfort care is most reasonable for him. I mentioned hospice, which Veronika agrees would be appropriate for him given his progressive dementia and recent decreased po intake, however she asks that I talk to her sister Susanne more about this. I discussed this with the lead case manager, who attempted to talk with Cathy about discharge possibilities with comfort care, but was unable to reach anyone there. Will continue to talk with his family, case management, and Cathy about discharge planning. Will plan to de-escalate medical regimen and focus on comfort care.
--- NOTE | 2017-05-27 14:39 | RAD ---
Indication: Hypotension. GI bleed, low blood pressure. Comparison: May 26, 2017 CT abdomen. Technique: Upright AP 2220 hours Report: Cardiomegaly. Unremarkable central pulmonary vasculature. Small LEFT pleural effusion and basilar consolidation most consistent with atelectasis based on correlation with CT. Less prominent atelectasis at the RIGHT lung base. Negative for pneumothorax. Negative for free air beneath the diaphragm. IMPRESSION: Small LEFT pleural effusion and basilar consolidation most consistent with atelectasis based on correlation with CT. Less prominent atelectasis at the RIGHT lung base.
[2017-05-27] MEDS ORDERED: Atorvastatin* 80 MG TAB PO SCH (17:00)
[2017-05-27] MEDS: LORazepam TAB(*) 0.5 MG PO PRN (17:20)
[2017-05-27] MEDS ORDERED: rOPINIRole TAB* 4 MG PO SCH (21:00)
[2017-05-27 22:34] LABS: Hematocrit 29 % (42-52); Hemoglobin 9.7 g/dl (14.0-18.0); Mean Corpuscular HGB Conc 34 g/dl (31-36); Mean Corpuscular Hemoglobin 32 pg (27-31); Mean Corpuscular Volume 95 fL (80-94); Mean Platelet Volume 8 um3 (7.4-10.4); Red Blood Count 3.03 10^6/ul (4.0-5.4); Red Cell Distribution Width 15 % (10.5-15); White Blood Count 19.3 10^3/ul (3.5-10.8)
[2017-05-28 01:42] VITALS: BP 131/36
[2017-05-28] MEDS: LORazepam TAB(*) 0.5 MG PO PRN (03:59)
[2017-05-28] MEDS: Acetaminophen TAB* 325 MG PO PRN ×2 (04:47→13:19)
[2017-05-28 07:24] LABS: Hematocrit 29 % (42-52); Hemoglobin 9.8 g/dl (14.0-18.0); Mean Corpuscular HGB Conc 34 g/dl (31-36); Mean Corpuscular Hemoglobin 32 pg (27-31); Mean Corpuscular Volume 94 fL (80-94); Mean Platelet Volume 8 um3 (7.4-10.4); Red Blood Count 3.09 10^6/ul (4.0-5.4); Red Cell Distribution Width 15 % (10.5-15); White Blood Count 17.8 10^3/ul (3.5-10.8)
[2017-05-28 07:34] LABS: BUN/Creatinine Ratio 21.2 (8-20); Calcium 7.9 mg/dL (8.6-10.3); EGFR African American 86.5 (>60); EGFR Non-African American 67.2 (>60); Potassium 3.8 mmol/L (3.5-5.0)
[2017-05-28 07:43] LABS: Troponin I 0.22 ng/mL (<0.04)
[2017-05-28] MEDS: DULoxetine DR CAP* 20 MG CAP.DR PO SCH (10:39)
[2017-05-28] MEDS: Carbidopa/Levodop 25/100 MG TAB(*) PO SCH ×2 (10:39→13:19)
[2017-05-28] MEDS: Amiodarone TAB* 200 MG PO SCH (10:39)
[2017-05-28] MEDS: Vancomycin CAP* 125 MG CAP PO SCH ×2 (10:41→15:47)
--- NOTE | 2017-05-28 16:06 | DS ---
DISCHARGE SUMMARY: DATE OF ADMISSION: 05/27/17 DATE OF DISCHARGE: 05/28/17 PRIMARY DIAGNOSES: 1. Clostridium difficile colitis. 2. Lower gastrointestinal bleed. SECONDARY DIAGNOSES: 1. Dementia. 2. Corticobasal syndrome. 3. Paroxysmal atrial fibrillation. 4. Chronic urinary retention with suprapubic catheter. 5. Hyperlipidemia. 6. Trigeminal neuralgia. 7. Parkinson disease. 8. History of prostate cancer. DISCHARGE MEDICATIONS: 1. Vancomycin 125 mg p.o. 4 times a day for 8 more days. 2. Amiodarone 200 mg daily. 3. Atorvastatin 80 mg daily. 4. Carbidopa/levodopa 25/100 mg 2 tabs p.o. 4 times a day. 5. Cymbalta 40 mg daily. 6. Colace 100 mg b.i.d. 7. Ativan 0.5 mg p.o. q.6 p.r.n. anxiety. 8. Coreg 6.25 mg b.i.d. 9. Lisinopril 5 mg daily. 10. ReQuip 4 mg p.o. at bedtime. PHYSICAL EXAM: On day of discharge, blood pressure 131/36, pulse ox 95% on room air, respiratory rate 15, heart rate 62. General: Alert, disoriented, poor attention. No distress. HEENT: Pale conjunctivae. Pupils are equal, round, and reactive to light. No nystagmus. Neck: No JVP. No lymphadenopathy. Heart: Irregularly irregular rhythm with no murmurs. Lungs: Clear bilaterally. Abdomen: Soft, nontender, and nondistended. Suprapubic catheter in place. Extremities: No edema. No ecchymosis. Distal pulses 2+ bilaterally. LABORATORY DATA: White blood cell count 17.8, hemoglobin 9.8, platelets 213, 000. Sodium 131, potassium 3.8, chloride 104, carbon dioxide 22, creatinine 1.04. HOSPITAL COURSE BY PROBLEM: 1. Lower GI bleed. Mr. Corona was transferred to [facility] from [facility] for dark stools. His hemoglobin was found to drop from 14 to 9.8 during this admission; however, after discussion with Mr. Corona's daughters, Susanne and Chiquis, who are his healthcare proxies, they decided that they would not pursue a colonoscopy or endoscopy. He was given conservative management. He did not require any blood transfusions and remained hemodynamically stable. He had had some constipation recently, which his daughters report to be chronic, so may have some internal hemorrhoids that are bleeding. In addition, colitis was seen on the CT scan, which may have contributed. 2. C. diff colitis, diarrhea, leukocytosis and radiographic findings support this diagnosis of C. diff colitis. He was started on p.o. vancomycin and will be treated for a 10-day course in total. 3. Paroxysmal atrial fibrillation. He had been on Eliquis prior to admission as well as amiodarone and carvedilol. After a long discussion of these medications with his daughters, we agreed that since we are not working up the lower GI bleed and will not know the etiology, it is safest to discontinue the Eliquis. I discussed the risk of stroke with his family and they agree that the risk is acceptable to avoid ongoing blood loss. They do report; however, that he had marked improvement in his cardiopulmonary status when amiodarone and Coreg were initiated and they would like to continue these, so he is being discharged on both amiodarone and Coreg. 4. Acute kidney injury. His renal function improved with volume resuscitation and with holding lisinopril and Lasix. His acute kidney injury was thought to be prerenal. 5. Elevated troponins. Mr. Corona had no chest pain and no ischemic EKG changes. I discussed these findings with his daughters who agreed in conservative management and not pursuing an ischemic evaluation. I explained that this likely portends a poor prognosis. DISPOSITION: We discussed the possibility of hospice and comfort care; however , ultimately decided that medical management is appropriate, that Mr. Corona has a reasonable quality of life, and that we will pursue any noninvasive medical therapy as needed. [id number]/[facility] #: [id number] [facility] HOSPITALFred
== END 2017-05-28 15:55 ==
LOC: EDBD → ED 21:08 → INTOOBSV 05-27 00:07 → MERGE 05-27 00:07 → MEDTELE 05-27 00:07 → ICU 05-27 04:29 → MED 05-27 16:12
PROVIDERS: ADMIT Pediatrics; ATTEND Internal Medicine
DX: K92.2 Gastrointestinal hemorrhage, unspecified (principal); A04.7 Enterocolitis due to Clostridium difficile; D62 Acute posthemorrhagic anemia; G20 Parkinson's disease; F02.80 Dementia in other diseases classified elsewhere, unspecified severity, without behavioral disturbance, psychotic disturbance, mood disturbance, and anxiety; I48.91 Unspecified atrial fibrillation; I42.9 Cardiomyopathy, unspecified; G31.85 Corticobasal degeneration; R33.9 Retention of urine, unspecified; E78.5 Hyperlipidemia, unspecified; G50.0 Trigeminal neuralgia; Z85.46 Personal history of malignant neoplasm of prostate; D72.829 Elevated white blood cell count, unspecified; F32.9 Major depressive disorder, single episode, unspecified; F41.9 Anxiety disorder, unspecified; Z79.01 Long term (current) use of anticoagulants; Z79.899 Other long term (current) drug therapy
CPT/HCPCS: 36415; 71010; 74177; 80048; 80053; 81003; 81015; 83605; 84443; 84484; 85025; 85027; 85610; 85730; 86850; 86900; 86901; 87077; 87086; 87186; 87493; 87641; 93005; 96374; 96376; 99283; A9270-GY; G0378; J2543; Q9967